=== PATIENT | male | born 1960 | race Hispanic/Latino ===

== ENCOUNTER → 2018-07-20 | Day surgery (SDC) | payer OTHER ==
[~2018-07-20] MED LIST: CEFAZOLIN 1GM (PREMIX IV) 1 GM/50 ML BAG ONE; LIDOCAINE 1% MPF 30 ML VIAL ONE; LIDOCAINE 2% MPF 5 ML VIAL ONE; MIDAZOLAM HCL 2 MG/2 ML INJ ONE; Mastisol Adhesive Liq ONE; NA CHLORIDE 0.9% 1,000 ML ONE; PROPOFOL 200 MG/20 ML VIAL IV ONE
[2018-07-20 11:24] LABS: Absolute Lymphocytes (CBC) 1.2 K/uL (0.7-4.9); Absolute Monocytes 0.3 K/uL (0.1-1.3); Absolute Neutrophil 3.4 K/uL (1.8-8.0); Basophils % 1.2 % (0-1.3); Eosinophils % 3.7 % (0-4.4); Hematocrit 34.4 % (39.6-49.0); Lymphocytes % 22.6 % (15.3-44.8); Monocytes % 6.1 % (3.3-12.3); Potassium 3.8 mmol/L (3.5-5.1); RBC Red Blood Cell Count 3.94 M/uL (4.33-5.43)
[2018-07-20 15:32] VITALS: BP 125/90; TEMP 97.6; O2SAT 98
--- NOTE | 2018-07-20 23:36 | OP ---
Date of Procedure: 07/20/2018 Surgeon: Les Holden MD Preoperative Diagnosis: End-stage renal disease status post a right chest Tesio catheter. Postoperative Diagnosis: End-stage renal disease status post a right chest Tesio catheter. Procedure: Removal of right chest Tesio catheter. Estimated Blood Loss: Minimal. Specimen: Tesio catheter. Findings: Normal anatomy. Anesthesia: MAC. Complications: None. Dispostion: The patient tolerated the procedure in stable condition, taken to Recovery in good gener al condition. Procedure In Detail: The patient brought to the OR and placed in supine position. MAC anesthesia wa s begun. The patient was prepped and draped in usual sterile fashion. Lidocaine 1% was infiltrated locally. A 15 blade was used to make a 2 x 1 cm incision around the exit site of the catheter. Subc utaneous tissues were divided, cuff identified and freed from surrounding tissue with sharp and blunt dissection and then the catheter removed in 1 piece and sent to Pathology for identification. Wound irrigated. Bleeding controlled with cautery. The flaps were created and 2-0 chromic and 3-0 chromi c used to approximate subcutaneous tissue and close the skin. Sterile dressing was applied. The pat ient was awakened and taken to Recovery in good general condition. Discharge Note: The patient will go to day surgery, then home when stable. Disposition: Home. Condition: Stable. Discharge Instructions: Resume home medications and diet. Activity as tolerated. No heavy lifting. Remove outer dressing in 2 days. Shower. Keep wound clean and dry. Keep Steri-Strips on at all t imes. Follow up in my office in 2 weeks. Call for appointment. Tylenol No.3 one tablet p.o. q.4 p. r.n. pain. /MODL Voice ID: [id number] Report ID: [id number]
--- OUTSIDE RECORDS SUMMARY | 2018-07-21 17:06 | XMS REPORT | Clinical Summary ---
:1960 Author Organization [facility] Address [address] [place] [address] Care Team Providers Name Role Phone Ritchie Torrez MD Primary Care Provider Allergies No Known Allergies Medications Medication Sig Dispensed Refills Start Date End Date Status furosemide (LASIX) Take 40 mg by 0 12/24/2015 Active 40 mg tablet mouth as needed. insulin ASPART Inject 10-12 0 Active (NovoLOG) 100 Units under the unit/mL injection skin 3 (three) times a day before meals. Sliding scale acetaminophen-codei Take 1-2 tablets 25 tablet 0 06/13/2018 06/19/2018 ne (TYLENOL WITH by mouth every 6 CODEINE #3) 300-30 (six) hours as mg per tablet needed for moderate pain for up to 6 days. docusate sodium Take 1 capsule 14 capsule 0 06/13/2018 06/20/2018 (COLACE) 100 MG (100 mg total) by capsule mouth 2 (two) times a day for 7 days. Active Problems Problem Noted Date ESRD (end stage renal disease) 05/10/2018 Overview: Added automatically from request for surgery [id number] Encounters Date Type Specialty Care Team Description 06/29/2018 Office Visit General Surgery [place], Surgery follow-up Guille Chambers MD examination (Primary Dx) 06/14/2018 Refill General Surgery Guille Fishman MD 06/13/2018 Surgery General Surgery Sra[facility], Laparoscopic Guille Chambers MD peritoneal dialysis catheter placement. 06/13/2018 Anesthesia Event General Surgery Lizeth Garrido FNP 06/13/2018 Hospital Encounter General Surgery Guille Fishman MD 06/06/2018 Pre-Admit Testing Pre-Admission S[facility], Preop testing Appointment Testing Guille Chambers MD (Primary Dx) 05/10/2018 Transcribe Orders General Surgery Sravanthi, ESRD (end stage Guille Chambers MD renal disease) (HCC) (Primary Dx) 05/09/2018 Office Visit General Surgery Sravanthi, End-stage renal Guille Chambers MD disease (HCC) (Primary Dx) after 07/19/2017 Family History Medical History Relation Name Comments Liver cancer Father Diabetes Mother Relation Name Status Comments Father Mother Alive Social History Tobacco Use Types Packs/Day Years Used Date Never Smoker Smokeless Tobacco: Never Used Alcohol Use Drinks/Week oz/Week Comments No Sex Assigned at Date Recorded Not on file Job Start Date Occupation Industry Not on file Not on file Not on file Travel History Travel Start Travel End No recent travel history available. Last Filed Vital Signs Vital Sign Reading Time Taken Blood Pressure 120/75 06/29/2018 2:36 PM [employer]IC [employer]ER [employer]PAIRER Pulse 84 06/29/2018 2:36 PM [employer] REPAIRER Temperature 36.4 C (97.5 F) 06/13/2018 9:34 AM ELECTRIC METER REPAIRER Respiratory Rate 15 06/13/2018 9:49 AM ELECTRIC METER REPAIRER Oxygen Saturation 100% 06/13/2018 9:49 AM ELECTRIC METER REPAIRER Inhaled Oxygen Concentration - - Weight 111 kg (244 lb) 06/29/2018 2:36 PM [employer]RIC [employer]ER REPAIRER Height 182.9 cm (6') 06/29/2018 2:36 PM ELECTRIC METER REPAIRER Body Mass Index 33.09 06/29/2018 2:36 PM ELECTRIC METER REPAIRER Plan of Treatment Health Maintenance Due Date Last Done Comments COLON CANCER SCREENING 2011 SHINGLES VACCINES (1 of 2) 2011 INFLUENZA VACCINE 03/01/2018 Procedures Procedure Name Priority Date/Time Associated Comments Diagnosis POC GLUCOSE Routine 06/13/2018 8:43 Results for this AM ELECTRIC METER REPAIRER procedure are in the results section. UT AN ELECTIVE Routine 06/13/2018 8:01 ENDOTRACHEAL AIRWAY AM E[employer]RIC METER REPAIRER Procedure Note - Gagan Rodriguez MD - 06/13/2018 8:01 AM ELECTRIC METER REPAIRER ANESTHESIA INTUBATION Performed by: Gagan Rodriguez MD Authorized by: Gagan Rodriguez MD Location: OR Urgency: Elective Difficult Airway: No Anesthesiologist: Gagan Rodriguez MD Performed by: anesthesiologist Preoxygenated with 100% O2: Yes Mask Ventilation: Easy mask Final Airway Type: Endotracheal airway Final Endotracheal Airway: ETT Cuffed: Yes Technique Used: Direct laryngoscopy Insertion Site: Oral Blade Type: Kaba Laryngoscope Blade/Videolaryngoscope Blade Size: 2 ETT Size (mm): 8.0 Cuff at minimum occlusion pressure: Yes Measured from: Lips ETT to Lips (cm): 24 Placement Verified by: CO2 detection, direct visualization and equal breath sounds Laryngoscopic view: Grade I - full view of glottis Rapid Sequence Induction (RSI): No Number of Attempts at Approach: 1 Medications Administered Cisatracurium (NIMBEX) BOLUS, 12 mg POC PANEL 4 Routine 06/13/2018 6:44 AM Results for this [employer] REPAIRER procedure are in the results section. ESTIMATED GFR STAT 06/13/2018 6:41 AM Results for this [employer]LECTRIC METER REPAIRER procedure are in the results section. BASIC METABOLIC PANEL STAT 06/13/2018 6:41 AM Results for this [employer]ER REPAIRER procedure are in the results section. ECG PRE/POST OP Routine 06/06/2018 4:22 PM Preop testing Results for this [employer] REPAIRER procedure are in the results section. HC COMPLETE BLD COUNT Routine 06/06/2018 2:58 PM Preop testing Results for this W/AUTO DIFF E[employer]RIC METER REPAIRER procedure are in the results section. after 07/19/2017 Results POC glucose (06/13/2018 8:43 AM ELECTRIC METER REPAIRER) POC glucose 168 (H) 65 - 99 mg/dL [facility] Comment: HOSPITAL RN Notified Meter ID: [id number] Chart Reader: Carol Ann Faria Performing Organization Address City/State/Zipcode Phone Number [facility] DEPARTMENT OF PATHOLOGY [address] [place] [address] AND GENOMIC MEDICINE [facility] [address] [place] [address] HOSPITAL POC panel 4 (06/13/2018 6:44 AM ELECTRIC METER REPAIRER) POC sodium 138 135 - 148 mmol/L [facility] POC potassium 3.5 3.5 - 5.0 mmol/L [facility] POC hematocrit 40 (L) 41 - 51 % [facility] POC glucose 191 (H) 65 - 99 mg/dL [facility] POC hemoglobin 13.6 (L) 14.0 - 18.0 g/dL [facility] Comment: HOSPITAL Meter ID: [id number] Chart Reader: Leif Vasquez Specimen Blood Performing Organization Address City/State/Zipcode Phone Number [facility] DEPARTMENT OF PATHOLOGY [address] [place] [address] Estimated GFR (06/13/2018 6:41 AM ELECTRIC METER REPAIRER) Estimated GFR 14 (A) mL/min/1.73 m2 [facility] Comment: [facility] CatergoryUnitsInterpretation G1 >=90 Normal or high G2 60-89Mildly decreased [id number] to moderately decreased [id number] to severely decreased G4 15-29Severely decreased G5 <15Kidney failure The eGFR was calculated using the Chronic Kidney Disease Epidemiology Collaboration (CKD-EPI) equation. Interpretation is based on recommendations of the National Kidney Foundation-Kidney Disease Outcomes Quality Initiative (NKF-KDOQI) published in 2014. Specimen Plasma specimen Performing Organization Address City/[facility]/Zipcode Phone Number [facility] DEPARTMENT OF PATHOLOGY [address] [place] [address] Basic metabolic panel (06/13/2018 6:41 AM ELECTRIC METER REPAIRER) Sodium 138 135 - 148 mEq/L [facility] Potassium 3.6 3.5 - 5.0 mEq/L [facility] Chloride 98 98 - 112 mEq/L [facility] CO2 23 (L) 24 - 31 mEq/L [facility] Anion gap 17@ANIO (H) 7 - 15 mEq/L [facility] BUN 43 (H) 6 - 20 mg/dL [facility] Creatinine 4.33 (H) 0.70 - 1.20 mg/dL [facility] Glucose 193 (H) 65 - 99 mg/dL [facility] Calcium 9.7 8.3 - 10.2 mg/dL [facility] Specimen Plasma specimen Performing Organization Address City/[facility]/Zipcode Phone Number [facility] DEPARTMENT OF PATHOLOGY [address] [place] [address] AND GENOMIC MEDICINE [facility] [address] [place] [address] HOSPITAL ECG Pre/Post Op (06/06/2018 4:22 PM ELECTRIC METER REPAIRER) Ventricular rate 67 [facility]USE Atrial rate 67 [facility] UT interval 156 [facility] QRSD interval 76 [facility] QT interval 402 [facility] QTC interval 424 [facility] P axis 1 16 [facility] MUSE QRS axis 1 -9 [facility] MUSE T wave axis 22 [facility] MUSE EKG impression Normal sinus rhythm-Low voltage [facility] MUSE QRS-Borderline ECG-No previous ECGs available- Performing Organization Address [facility] Phone Number [facility] [employer] [address] [place] [address] CBC with platelet and differential (06/06/2018 2:58 PM ELECTRIC METER REPAIRER) WBC 5.5 4.5 - 11.0 k/uL [facility] DEPARTMENT OF PATHOLOGY AND GENOMIC MEDICINE RBC 3.93 (L) 4.40 - 6.00 m/uL [facility] DEPARTMENT OF PATHOLOGY AND GENOMIC MEDICINE HGB 11.5 (L) 14.0 - 18.0 g/dL [facility] DEPARTMENT OF PATHOLOGY AND GENOMIC MEDICINE HCT 34.1 (L) 41.0 - 51.0 % [facility] DEPARTMENT OF PATHOLOGY AND GENOMIC MEDICINE MCV 86.8 82.0 - 100.0 fL [facility] DEPARTMENT OF PATHOLOGY AND GENOMIC MEDICINE MCH 29.3 27.0 - 34.0 pg [facility] DEPARTMENT OF PATHOLOGY AND GENOMIC MEDICINE MCHC 33.7 31.0 - 37.0 g/dL [facility] DEPARTMENT OF PATHOLOGY AND GENOMIC MEDICINE RDW - SD 40.3 37.0 - 55.0 fL [facility] DEPARTMENT OF PATHOLOGY AND GENOMIC MEDICINE MPV 11.4 (H) 6.9 - 11.0 fL [facility] DEPARTMENT OF PATHOLOGY AND GENOMIC MEDICINE Platelet count 152 150 - 400 K/uL [facility] DEPARTMENT OF PATHOLOGY AND GENOMIC MEDICINE Nucleated RBC 0.00 /100 WBC [facility] DEPARTMENT OF PATHOLOGY AND GENOMIC MEDICINE Neutrophils 60.0 39.0 - 69.0 % [facility] DEPARTMENT OF PATHOLOGY AND GENOMIC MEDICINE Lymphocytes 28.8 25.0 - 45.0 % [facility] DEPARTMENT OF PATHOLOGY AND GENOMIC MEDICINE Monocytes 7.4 0.0 - 10.0 % [facility] DEPARTMENT OF PATHOLOGY AND GENOMIC MEDICINE Eosinophils 2.5 0.0 - 5.0 % [facility] DEPARTMENT OF PATHOLOGY AND GENOMIC MEDICINE Basophils 0.9 0.0 - 1.0 % [facility] DEPARTMENT OF PATHOLOGY AND GENOMIC MEDICINE Immature granulocytes 0.4 0.0 - 1.0 % [facility] DEPARTMENT OF PATHOLOGY AND GENOMIC MEDICINE Specimen Blood Performing Organization Address City/State/Zipcode Phone Number [facility] DEPARTMENT OF PATHOLOGY [address] [place] [address] AND GENOMIC MEDICINE after 07/19/2017 Insurance Payer Benefit Plan / Group Subscriber ID Type Phone Address MEDICARE MEDICARE PART A AND B xxxxxxxxxxx Medicare [place], [place] COMMERCIAL MISC MISC COMMERCIAL xxxxxxxxxx Commercial ([place]) [place] [address] Advance Directives Patient has advance care planning documents on file. For more information, please contact:Idris [address] [place] [address]
--- OUTSIDE RECORDS SUMMARY | 2018-07-21 17:06 | XMS REPORT | Clinical Summary ---
:1960 Author Organization [facility] Address [address] [place] [address] Care Team Providers Name Role Phone Unavailable Primary Care Provider Unavailable Allergies Not on File Medications Not on file Active Problems Not on file Encounters Date Type Specialty Care Team Description 02/13/2018 Abstract Transplant Isaiah Jacqueline 12/22/2017 Telephone Transplant Isaiah Jacqueline Kidney Transplant Pre- evaluation 12/22/2017 Abstract Transplant Colon Jacqueline 12/07/2017 Telephone Transplant Isaiah Jacqueline Kidney Transplant Pre- evaluation 12/05/2017 Telephone Transplant Colon Jacqueline Kidney Transplant Pre- evaluation 11/18/2017 Telephone Transplant Isaiah Jacqueline Kidney Transplant Pre- evaluation 11/15/2017 Abstract Transplant Isaiah Jacqueline 11/10/2017 Abstract Transplant Jacqueline Colon after 07/19/2017 Social History Tobacco Use Types Packs/Day Years Used Date Never Smoker Sex Assigned at Date Recorded Not on file Job Start Date Occupation Industry Not on file Not on file Not on file Travel History Travel Start Travel End No recent travel history available. Last Filed Vital Signs Vital Sign Reading Time Taken Blood Pressure - - Pulse - - Temperature - - Respiratory Rate - - Oxygen Saturation - - Inhaled Oxygen Concentration - - Weight 105.2 kg (232 lb) 11/10/2017 1:50 PM CDT Height 182.9 cm (6') 11/10/2017 1:50 PM CDT Body Mass Index 31.46 11/10/2017 1:50 PM CDT Plan of Treatment Not on file Results Not on fileafter 07/19/2017 Insurance Payer Benefit Plan / Group Subscriber ID Type Phone Address MEDICARE MEDICARE A B xxxxxxxxxx Medicare (Home) [place] [address]
== END ==
LOC: OR 10:43
PROVIDERS: ATTEND Surgery
PROC: 02PY33Z Removal of Infusion Device from Great Vessel, Percutaneous Approach (ICD-10-PCS; principal; 2018-07-20 12:00)
DX: Z49.01 Encounter for fitting and adjustment of extracorporeal dialysis catheter (principal); I12.0 Hypertensive chronic kidney disease with stage 5 chronic kidney disease or end stage renal disease; N18.6 End stage renal disease; Z79.4 Long term (current) use of insulin; Z79.899 Other long term (current) drug therapy
CPT/HCPCS: 36415; 36556; 80048; 82962; 85025; 88300; J0690; J2250; J2704; J7030

== ENCOUNTER 2019-11-11 11:29 | Emergency (ER) | payer OTHER ==
--- OUTSIDE RECORDS SUMMARY | 2019-11-11 11:32 | XMS REPORT ---
:1960 Author Organization [facility] t Address [facility] [place] [address] Care Team Providers Name Role Phone Unavailable Unavailable Unavailable Problems This patient has no known problems. Allergies, Adverse Reactions, Alerts This patient has no known allergies or adverse reactions. Medications This patient has no known medications. Encounters Start End Encounter Admission Attending Care Care Encounter Date/Time Date/Time Type Type Clinicians Facility Department ID 2019-10-01 Inpatient [facility] [id number] 13:35:35 2019-10-08 2019-10-08 Outpatient [facility] [id number] 11:36:00 11:36:00 2019-09-06 2019-09-06 Outpatient [facility] [id number] 15:00:00 15:00:00 2019-07-04 2019-07-04 Outpatient [facility] [id number] 08:20:00 08:20:00 2019-06-04 2019-06-04 Outpatient [facility] [id number] 15:00:00 15:00:00 2019-04-17 2019-04-17 Outpatient [facility] CAR [id number] 11:04:00 11:04:00 2019-04-10 2019-04-10 Outpatient [facility] CAR [id number] 13:22:00 13:22:00 2019-04-02 2019-04-02 Outpatient [facility] [id number] 15:00:00 15:00:00 2019-03-09 2019-03-09 Outpatient [facility] [id number] 15:00:00 15:00:00 2019-02-22 2019-02-22 Outpatient [facility] [id number] 11:00:00 11:00:00 2019-02-05 2019-02-05 Outpatient [facility] [id number] 15:00:00 15:00:00 2019-01-08 2019-01-08 Outpatient [facility] [id number] 15:00:00 15:00:00 2018-11-13 2018-11-13 Outpatient [facility] [id number] 12:05:00 12:05:00 2018-10-23 2018-10-23 Outpatient [facility] [id number] 15:00:00 15:00:00
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
--- OUTSIDE RECORDS SUMMARY | 2019-11-11 11:34 | XMS REPORT | Summary of Care ---
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 (Primary Dx); Clinic- [place] MD Jamal Diabetic macular edema, left eye; Multispecialty [address] Hypertensive retinopathy of both eyes; [facility] Posterior vitreous detachment of right e ye; [place], [place] Cranial nerve III palsy, rig ht; [place] [address] Nuclear sclerosis, right; [id number] Pseudophakia, left eye; [phone] Refractiv e error Allergies No Known Allergiesdocumented as of this encounter (statuses as of 09/07/2019) Medications Medication Sig Dispensed Refills Start Date End Date Status Insulin [place], Use as directed 100 Each 0 02/22/2014 [...] mg tablet mouth every morning and evening. 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 Tolu Navarro MD 09/07/2019 2:32 PM MANAGEMENT PROFESSIONAL documented in this encounter Plan of Treatment Date Type Specialty Care Team Description 12/06/2019 Office Visit Ophthalmology Tolu Ayers MD [address] [place] [address] [phone] Health Maintenance Due Date Last Done Comments [...] of this encounter Implants Implanted Type Area Boxer Operator Device Shelf Model / Identifier Expiration Date Ser ial / Lot Lens, Qamar #[id number] 21.0d - [id number] LENS Left: Eye Qamar 06/30/2022 [id number] 21.0D / Implanted: Qty: 1 on 11/10/2017 by Radha Kohler MD at [facility] [id number] / NA documented as of this [...] BOX Medicare A & B ent [id number] DIONNA JARRETT [phone] COMMERCIAL COMMERCIAL [id number] 2017-Pres HMO /PPO/POS NON-CONTRACT NON-CONTRACT ent GENERIC GENERIC documented as of this encounter
--- NOTE | 2019-11-11 11:50 | ER ---
Nurse's Notes [facility] Name: Julian Morillo Age: 59 yrs Sex: Male : 1960 Arrival Date: 11/11/2019 Time: 11:34 Bed 6 Private MD: Berta Torrez C Diagnosis: Zoster [herpes zoster] Presentation: 11/10 11:41 Chief complaint: Patient states: shingles to the right side of body. Coronavirus sv screen: Proceed with normal triage. Patient denies a cough. Patient denies shortness of breath or difficulty breathing. Patient denies measured and/or subjective temperature greater than 100.4F prior to today's visit. Patient denies travel on a cruise ship or to a country the [facility] currently lists as an affected area. Patient denies contact with known and/or suspected case of COVID-19. Ebola Screen: No symptoms or risks identified at this time. Initial Sepsis Screen: Does the patient meet any 2 criteria? HR > 90 bpm. No. Patient's initial sepsis screen is negative. Does the patient have a suspected source of infection? No. Patient's initial sepsis screen is negative. Risk Assessment: Do you want to hurt yourself or someone else? Patient reports no desire to harm self or others. Onset of symptoms was November 11, 2019. 11:41 Method Of Arrival: Wheelchair sv 11:41 Acuity: IZABEL 5 sv Triage Assessment: 11:45 General: Appears in no apparent distress. comfortable, well groomed, well developed, sv Behavior is calm, cooperative, appropriate for age. Neuro: Level of Consciousness is awake, alert, obeys commands, Oriented to person, place, time, situation, Gait is steady. Respiratory: Respiratory effort is even, unlabored, Respiratory pattern is regular, symmetrical. Derm: Skin is pink, warm \T\ dry. Historical: - Allergies: 11:44 No Known Allergies; sv - PMHx: 11:44 Diabetes - IDDM; Hypertension; Peritoneal dialysis; sv - PSHx: 11:44 skin graft Left leg; sv - Immunization history:: Adult Immunizations up to date. - Social history:: Smoking status: Patient denies any tobacco usage or history of. Patient/guardian denies using alcohol. Screenin:44 Abuse screen: Denies threats or abuse. Denies injuries from another. Nutritional sv screening: No deficits noted. Tuberculosis screening: No symptoms or risk factors identified. Fall Risk None identified. Assessment: 11:59 Reassessment: Patient appears in no apparent distress at this time. No changes from sv previously documented assessment. Patient and/or family updated on plan of care and expected duration. Pain level reassessed. Patient is alert, oriented x 3, equal unlabored respirations, skin warm/dry/pink. Vital Signs: 11:41 BP 105 / 50; Pulse 102; Resp 18; Temp 97.6(TE); Pulse Ox 100% ; Weight 119.29 kg; sv Height 6 ft. 0 in. (182.88 cm); 11:41 Body Mass Index 35.67 (119.29 kg, 182.88 cm) sv ED Course: 11:34 Patient arrived in ED. mr 11:34 Berta Torrez MD is Private Physician. mr 11:37 Maude Mathias RN is Primary Nurse. sv 11:42 [facility] Alonzo [facility]-C [facility] kb 11:42 Edmar Bartlett MD is Attending Physician. kb 11:43 Triage completed. sv 11:44 Arm band placed on. sv 11:44 Patient has correct armband on for positive identification. Bed in low position. Call sv light in reach. Pulse ox on. NIBP on. Door closed. Head of bed elevated. 11:45 Nurse Practitioner and/or Physician Psychology Technician to see patient. sv 11:58 No provider procedures requiring assistance completed. Patient did not have IV access sv during this emergency room visit. Administered Medications: 11:57 Drug: Valtrex 1000 mg Route: PO; sv 11:58 Follow up: Response: Medication administered at discharge. sv 11:58 Drug: [place] (7.5 mg-325 mg) 1 tabs {Note: rass1.} Route: PO; sv 11:58 Follow up: Response: Medication administered at discharge. sv Outcome: 11:50 Discharge ordered by . kb 11:58 Discharged to home via wheelchair. sv 11:58 Condition: stable 11:58 Discharge instructions given to patient, Instructed on discharge instructions, follow up and referral plans. medication usage, Demonstrated understanding of instructions, follow-up care, medications, Prescriptions given X 2. 11:59 Patient left the ED. sv Signatures: Leanna Alonzo FNP-C FNP-Ckb Maude Mathias, RN RN sv Yuan, Dianelys mr
--- NOTE | 2019-11-11 11:51 | EDPHYS ---
Physician Documentation [facility] Name: Julian Morillo Age: 59 yrs Sex: Male : 1960 Arrival Date: 11/11/2019 Time: 11:34 Bed 6 Private MD: Berta Torrez C ED Physician Edmar Bartlett HPI: 11/10 11:49 This 59 yrs old Male presents to ER via Wheelchair with complaints of Shingles.kb 11:49 The patient's rash thought to be caused by an unknown cause. The rash is located on the kb right breast. The rash can be described as vesicular. Onset: The symptoms/episode began/occurred 3 day(s) ago. Associated signs and symptoms: Pertinent positives: burning sensation, Pain. Severity of symptoms: At their worst the symptoms were mild in the emergency department the symptoms are unchanged. The patient has not experienced similar symptoms in the past. The patient has not recently seen a physician. Pt reports burning sensation started 3 days ago, then blistered rash developed yesterday. Painful to touch. Historical: - Allergies: 11:44 No Known Allergies; sv - PMHx: 11:44 Diabetes - IDDM; Hypertension; Peritoneal dialysis; sv - PSHx: 11:44 skin graft Left leg; sv - Immunization history:: Adult Immunizations up to date. - Social history:: Smoking status: Patient denies any tobacco usage or history of. Patient/guardian denies using alcohol. ROS: 11:48 Constitutional: Negative for fever, chills, and weight loss, Neck: Negative for injury, kb pain, and swelling, Cardiovascular: Negative for chest pain, palpitations, and edema, Respiratory: Negative for shortness of breath, cough, wheezing, and pleuritic chest pain, Abdomen/GI: Negative for abdominal pain, nausea, vomiting, diarrhea, and constipation, Back: Negative for injury and pain, MS/Extremity: Negative for injury and deformity, Neuro: Negative for headache, weakness, numbness, tingling, and seizure. 11:48 Skin: Positive for rash, of the right breast. Exam: 11:48 Constitutional: This is a well developed, well nourished patient who is awake, alert, kb and in no acute distress. Head/Face: Normocephalic, atraumatic. Neck: Trachea midline, no thyromegaly or masses palpated, and no cervical lymphadenopathy. Supple, full range of motion without nuchal rigidity, or vertebral point tenderness. No Meningismus. Chest/axilla: Normal chest wall appearance and motion. Nontender with no deformity. No lesions are appreciated. Cardiovascular: Regular rate and rhythm with a normal S1 and S2. No gallops, murmurs, or rubs. Normal PMI, no JVD. No pulse deficits. Respiratory: Lungs have equal breath sounds bilaterally, clear to auscultation and percussion. No rales, rhonchi or wheezes noted. No increased work of breathing, no retractions or nasal flaring. Abdomen/GI: Soft, non-tender, with normal bowel sounds. No distension or tympany. No guarding or rebound. No evidence of tenderness throughout. MS/ Extremity: Pulses equal, no cyanosis. Neurovascular intact. Full, normal range of motion. Neuro: Awake and alert, GCS 15, oriented to person, place, time, and situation. Cranial nerves II-XII grossly intact. Motor strength 5/5 in all extremities. Sensory grossly intact. Cerebellar exam normal. Normal gait. 11:48 Skin: consistent with zoster. Vital Signs: 11:41 BP 105 / 50; Pulse 102; Resp 18; Temp 97.6(TE); Pulse Ox 100% ; Weight 119.29 kg; sv Height 6 ft. 0 in. (182.88 cm); 11:41 Body Mass Index 35.67 (119.29 kg, 182.88 cm) sv MDM: 11:42 Patient medically screened. kb 11:47 Data reviewed: vital signs, nurses notes. Data interpreted: Pulse oximetry: on room air kb is 100 %. Interpretation: normal. Counseling: I had a detailed discussion with the patient and/or guardian regarding: the historical points, exam findings, and any diagnostic results supporting the discharge/admit diagnosis, the need for outpatient follow up, a family practitioner, to return to the emergency department if symptoms worsen or persist or if there are any questions or concerns that arise at home. Administered Medications: 11:57 Drug: Valtrex 1000 mg Route: PO; sv 11:58 Follow up: Response: Medication administered at discharge. sv 11:58 Drug: [place] (7.5 mg-325 mg) 1 tabs {Note: rass1.} Route: PO; sv 11:58 Follow up: Response: Medication administered at discharge. sv Disposition: 17:24 Co-signature as Attending Physician, Edmar Bartlett MD. ma2 Disposition: 11/11/19 11:50 Discharged to Home. Impression: Zoster [herpes zoster]. - Condition is Stable. - Discharge Instructions: Shingles. - Prescriptions for Tylenol- Codeine #3 300-30 mg Oral Tablet - take 1 tablet by ORAL route every 6 hours As needed; 15 tablet. Valtrex 1 g Oral Tablet - take 1 tablet by ORAL route every 8 hours for 7 days; 21 tablet. - Medication Reconciliation Form, Thank You Letter, Antibiotic Education, Prescription Opioid Use form. - Follow up: Private Physician; When: 2 - 3 days; Reason: Recheck today's complaints, Continuance of care, Re-evaluation by your physician. Follow up: Emergency Department; When: As needed; Reason: Worsening of condition. Signatures: Leanna Alonzo FNP-C FNP-Ckb Verde, Stephanie, RN RN sv Alzahri, Mohammad, MD MD va2 Corrections: (The following items were deleted from the chart) 11:59 11:50 11/11/2019 11:50 Discharged to Home. Impression: Zoster [herpes zoster]. sv Condition is Stable. Discharge Instructions: Shingles. Prescriptions for Tylenol-Codeine #3 300-30 mg Oral Tablet - take 2 tablet by ORAL route every 6 hours As needed; 30 tablet, Valtrex 1 g Oral Tablet - take 1 tablet by ORAL route every 8 hours for 7 days; 21 tablet. and Forms are Medication Reconciliation Form, Thank You Letter, Antibiotic Education, Prescription Opioid Use. Follow up: Private Physician; When: 2 - 3 days; Reason: Recheck today's complaints, Continuance of care, Re-evaluation by your physician. Follow up: Emergency Department; When: As needed; Reason: Worsening of condition. kb
[2019-11-11] MEDS ORDERED: HYDROCODONE/APAP 7.5/325 MG TAB ONE (11:54)
[2019-11-11] MEDS ORDERED: VALACYCLOVIR 500 MG TAB ONE (11:55)
[2019-11-11 12:04] VITALS: BP 105/50; TEMP 97.6; O2SAT 100
== END 2019-11-11 11:59 | disposition home or self-care (01) ==
LOC: ER 11:29
DX: B02.9 Zoster without complications (principal)
CPT/HCPCS: 99283

== ENCOUNTER 2021-02-07 16:25 | Emergency (ER) | payer OTHER ==
--- OUTSIDE RECORDS SUMMARY | 2021-02-07 16:30 | XMS REPORT | Continuity of Care Document ---
:1960 Author Organization [facility] t Address [address] [place] [address] Care Team Providers Name Role Phone Sujit Torrez MD Primary Care Physician Carey Kong Attending Clinician [place]on LUQUE Attending Clinician Doctor Unassigned, Name Attending Clinician Unavailable Swati Escalante Attending Clinician Philippe Attending Clinician Chong Dong Attending Clinician Faisal Yeung Attending Clinician Mauricio Attending Clinician Philippe Admitting Clinician Carey Kong Admitting Clinician Faisal Yeung Admitting Clinician Problems Condition Condition Condition Status Onset Resolution Last Treating Co mments Source Name Details Category Date Date Treatment Clinician Date LABS ONLY Diagnosis Active 2021-02-04 Memoria 02-04 09:01:00 l LABS 00:00: [place] ONLY 00 Active 02/04/2021 [facility] HLA LABS Diagnosis Active 2021-01-02 M emoria ONLY 6- 13:38:00 l HLA LABS 00:00: Luis n ONLY 00 Active 01/02/2021 [facility] LISTED Diagnosis Active 2020-11-24 Mem oria UPDATE 4-13 13:48:00 l LISTED 11:00: Marlon UPDATE 00 Active 11/11/2020 [facility] LABS Diagnosis Active 2020-10-13 Mem oria 3-11 12:15:00 l LABS 11:00: [place] 00 Active 10/09/2020 [facility] HLA MAIL Diagnosis Active 2019-082020-11-17 M emoria INS - 15:29:00 l HLA MAIL 11:00: Luis n INS 00 Active 07/20/2020 [facility] ESLD Diagnosis Active 2020-05-16 Mem oria 04-21 10:40:00 l ESLD 00:00: Marlon 00 Active 04/21/2020 [facility] LABH Diagnosis Active 2020-02-05 Mem oria 01-29 12:49:00 l LABH 11:00: [place] 00 Active 01/30/2020 [facility] Z01.818 - Diagnosis Active 2019-10-13 Memoria ENCOUNTER 10-04 13:15:00 l FOR OTHER Z01.818 00:01: Herm anabella PREPROCEDU - 00 ENCOUNTER FOR OTHER PREPROCEDU Active 10/05/2019 [facility] RENAL/DO Diagnosis Active 2021-02-06 M emoria NOT USE 08-20 09:39:00 l FOR THIS RENAL/DO 06:00: Herm anabella FOR NOT USE 00 CHARGES F/ FOR THIS FOR CHARGES F/ Active 08/20/2019 [facility] Z01.818 Diagnosis Active 2019-05-10 Me moria 04-13 09:17:00 l Z01.818 00:00: [place] 00 Active 04/13/2019 [facility] ESRD (end ESRD (end Disease Active 2017-08 Overview: [place] stage stage 0-10 Oumar Robles renal renal 00:00: g of this st disease) disease) 00 note might be different from the original. Added automatic ally from request for surgery [id number] ENCOUNTER Diagnosis Active 2018-04-12 Memoria 8-14 15:15:00 l 00:00: [place] ENCOUNTER 00 Active 03/14/2018 [facility] ESRD Diagnosis Active 2018-02-28 Mem oria 7-16 11:06:00 l ESRD 00:00: [place] 00 Active 02/13/2018 [facility] ESRED/ PRE Diagnosis Active 2018-03-17 Memoria TRANSPLANT 01-23 15:39:00 l WORK UP ESRED/ 00:00: Marlon PRE 00 TRANSPLANT WORK UP Active 01/23/2018 [facility] CARDIAC Diagnosis Active 2018-03-19 Me moria CLEARANCE 01-04 15:08:00 l CARDIAC 00:00: Marlon CLEARANCE 00 Active 01/04/2018 [facility] COLON Diagnosis Active 2018-03-06 Mem oria CANCER 01-04 12:44:00 l SCREENING COLON 00:00: Luis colon CANCER 00 SCREENING Active 01/04/2018 [facility] RENAL/DO Diagnosis Active 2018-08-29 M emoria NOT USE 01-03 09:01:00 l FOR RENAL/DO 06:00: Luis n CHARGES NOT USE 00 F/C NOTES FOR O CHARGES F/C NOTES O Active 01/03/2018 [facility] NEW Diagnosis Active 2019-07-04 Mem oria EVALUATION 2- 08:30:00 l NEW 00:00: Marlon EVALUATION 00 Active 09/19/2017 [facility] Enlarged Problem 2018-11-27 Mem oria prostate 11:39:14 l without Enlarged Veronique nn lower prostate urinary without tract lower symptoms urinary tract symptoms 11/27/2018 [facility] Hypertensi Problem 2018-11-27 M emoria ve chronic 11:39:14 l kidney [place] disease Hypertensi with stage ve chronic 5 chronic kidney kidney disease disease or with stage end stage 5 chronic renal kidney disease disease or end stage renal disease 11/27/2018 [facility] Type 2 Problem 2018-11-27 Memor ia diabetes 11:39:14 l mellitus Type 2 Luis n with diabetes diabetic mellitus chronic with kidney diabetic disease chronic kidney disease 11/27/2018 [facility] Secondary Problem 2018-11-27 Me moria hyperparat 11:39:14 l hyroidism [place] of renal Secondary origin hyperparat hyroidism of renal origin 11/27/2018 [facility] Awaiting Problem 2018-11-27 Mem oria organ 11:39:14 l transplant Awaiting He rmann status organ transplant status 11/27/2018 [facility] Obesity, Problem 2018-11-27 Mem oria unspecifie 11:39:14 l d Obesity, Luis n unspecifie d 11/27/2018 [facility] Abnormal Problem 2018-10-02 Mem oria electrocar 12:42:07 l diogram Abnormal Veronique nn [ECG] electrocar [EKG] diogram [ECG] [EKG] 10/02/2018 [facility] Hyperlipid Problem 2018-09-05 M emoria emia, 12:26:11 l unspecifie Luis n d Hyperlipid emia, unspecifie d 09/05/2018 [facility] Personal Problem 2018-09-05 Mem oria history of 12:26:11 l colonic Personal Veronique nn polyps history of colonic polyps 09/05/2018 [facility] Benign Problem Resolve 2021-01-30 Andre erasmo prostatic d 23:27:00 l hyperplasi Benign Herm anabella a prostatic (disorder) hyperplasi a (disorder) Resolved Problem 01/30/2021 [facility] OPID [place] Hyperlipid Problem Resolve 2021-01-30 Memoria emia d 23:27:00 l (disorder) Luis n Hyperlipid emia (disorder) Resolved Problem 01/30/2021 [facility] OPID [place] Male Problem Resolve 2021-01-30 Andre erasmo hypogonadi d 23:27:00 l sm Male Marlon (disorder) hypogonadi sm (disorder) Resolved Problem 01/30/2021 [facility] OPID [place] Neuropathy Problem Resolve 2021-01-30 Memoria (disorder) d 23:27:00 l [place] Neuropathy (disorder) Resolved Problem 01/30/2021 [facility] OPID [place] Proteinuri Problem Resolve 2021-01-30 Memoria a d 23:27:00 l (finding) Marlon Proteinuri a (finding) Resolved Problem 01/30/2021 [facility] Retinal Problem Resolve 2021-01-30 Mem oria disorder d 23:27:00 l (disorder) 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 mcclure disorder (disorder) Resolved Problem 01/30/2021 [facility] Secondary Problem Resolve 2021-01-30 M emoria hyperparat d 23:27:00 l hyroidism Marlon (disorder) Secondary hyperparat hyroidism (disorder) Resolved Problem 01/30/2021 [facility] Diabetes Problem Active 2021-01-30 Mem oria mellitus 23:27:00 l (disorder) Diabetes He rmann mellitus (disorder) Active Problem 01/30/2021 [facility] Hypertensi Problem Active 2021-01-30 emoria ve 23:27:00 l disorder, [place] systemic Hypertensi arterial ve (disorder) disorder, systemic arterial (disorder) Active Problem 01/30/2021 [facility] Simple Problem Active 2021-01-30 Memor ia obesity 23:27:00 l (disorder) Simple Herm anabella obesity (disorder) Active Problem 01/30/2021 [facility] Atheroscle Problem Active 2021-01-03 emoria rosis 02:03:47 l [place] Atheroscle rosis Active Problem 01/03/2021 [facility] Diabetes Problem Active 2021-01-03 Mem oria mellitus 02:03:47 l with Diabetes Luis n peripheral mellitus vascular with disease peripheral vascular disease Active Problem 01/03/2021 [facility] Dependence Problem Active 2021-01-03 M emoria on renal 02:03:47 l dialysis [place] Dependence on renal dialysis Active Problem 01/03/2021 [facility] Onychomyco Problem Active 2021-01-03 M emoria sis 02:03:47 l [place] Onychomyco sis Active Problem 01/03/2021 [facility] End stage Problem Active 2021-01-03 Me moria renal 02:03:47 l disease End [place] stage renal disease Active Problem 01/03/2021 [facility] Paronychia Problem Active 2021-01-03 M emoria of great 02:03:47 l toe of [place] left foot Paronychia of great toe of left foot Active Problem 01/03/2021 [facility] Paronychia Problem Active 2021-01-03 M emoria of great 02:03:47 l toe of [place] right foot Paronychia of great toe of right foot Active Problem 01/03/2021 [facility] Dystrophic Diagnosis Active 2021-01-03 Memoria nail 02:03:47 l [place] Dystrophic nail Active Diagnosis 01/03/2021 [facility] Type 2 Problem Active 2021-01-03 Memor ia diabetes 02:03:47 l mellitus Type 2 Luis n without diabetes complicati mellitus on, without unspecifie complicati d whether on, fdc unspecifie insulin d whether use fdc insulin use Active Problem 01/03/2021 [facility] Venous Problem Active 2021-01-03 Memor ia insufficie 02:03:47 l ncy Venous [place] insufficie ncy Active Problem 01/03/2021 [facility] ENCOUNTER Diagnosis Active 2020-02-05 Memoria FOR 12:49:00 l PREPROCEDU Luis n RAL ENCOUNTER LABORATORY FOR E PREPROCEDU RAL LABORATORY E Active [facility] ENCOUNTER Diagnosis Active 2019-05-10 Memoria FOR OTHER 09:17:00 l PREPROCEDU Luis n RAL EXAMIN ENCOUNTER FOR OTHER PREPROCEDU RAL EXAMIN Active [facility] OTH Diagnosis Active 2019-05-10 Mem oria SYMPTOMS 09:17:00 l [facility] THE CIR AND SIGNS INVOLVING THE CIR Active [facility] ENCNTR FOR Diagnosis Active 2018-03-06 Memoria GENERAL 12:44:00 l ADULT ENCNTR [place] MEDICAL FOR EXAM W/ GENERAL ADULT MEDICAL EXAM W/ Active [facility] Third Problem Resolve 2017-0 2021-01-30 2021-01-30 Memoria cranial d 1-01 23:27:00 23:27:00 l nerve Third 00:00: Marlon weakness cranial 00 (disorder) nerve weakness (disorder) Resolved 08/01/2016 Problem 01/30/2021 [facility] History of Past Illness Condition Condition Condition Status Onset Resolution Last Treating Co mments Source Name Details Category Date Date Treatment Clinician Date Encounter Problem 2019-03-20 2019-03-20 Memoria for 2-07 11:09:52 11:09:52 l preprocedu 05:32: Luis vasquez Encounter 45 laboratory for examinatio preprocedu n ral laboratory examinatio n 09/07/2018 03/20/2019 [facility] Encounter Problem 2019-02-06 2019-02-06 Memoria for other 4-24 11:10:57 11:10:57 l administra 04:02: Luis colon tive Encounter 58 examinatio for other ns administra tive examinatio ns 11/22/2018 02/06/2019 [facility] Benign Problem 2017-082018-11-27 2018-11-27 M emoria neoplasm 0-15 11:39:14 11:39:14 l of Benign 02:43: Marlon ascending neoplasm 00 colon of ascending colon 05/15/2018 11/27/2018 [facility] Allergies, Adverse Reactions, Alerts Allergy Allergy Status Severity Reaction(s) Onset Inactive Treating Comm ents Source Name Type Date Date Clinician N.K.D.A. N.K.D.A. Active Info Not Andre erasmo Available 5-11 l 00:00: [place] 00 No Known No Known Active Memori a Medicati Medicati l on on Marlon Allergie Allergie s s Family History Family Member Diagnosis Comments Start Date Stop Date Source Natural father Liver cancer [facility] Natural mother Diabetes [facility] Social History Social Habit Start Date Stop Date Quantity Comments Source Sex Assigned At [facility] Social [facility] 2019[facility]10[facility]08 [facility] 17:03:22 Tobacco use and 2018-09-11 2018-09-11 Never used [facility] ethodist exposure 00:00:00 00:00:00 Alcohol intake 2018-09-11 2018-09-11 Current [facility] thodist 00:00:00 00:00:00 non-drinker of alcohol (finding) Smoking Status Start Date Stop Date Source Never smoker [facility] Medications Ordered Filled Start Stop Current Ordering Indication Dosage Frequency Signature Comments Components Source Medication Medication Date Date Medication? Clinician (SIG) Name Name Calcitriol Yes UllaBritt not Me moria 6-05 Larka defined l 02:03: [place] 47 Metolazone Yes UllaBritt not Me moria 6-05 Larka defined l 02:03: Marlon 47 Novolin Yes UllaBritt not Memor ia 70/30 6-05 [place] defined l 02:03: [place] 47 Losartan Yes UllaBritt not Andre erasmo Potassium 6-05 Larka defined l 02:03: [place] 47 Vitamin D2 Yes UllaBritt not Me moria 6-05 [place] defined l 02:03: Marlon 47 Furosemide Yes UllaBritt not Me moria 6-05 [place] defined l 02:03: Mar[place] 47 Diabetic Yes UllaBritt as Andre erasmo Shoes & 6-05 Larka directed l Custom 02:03: Marlon Insoles 47 Lamisil Yes UllaBritt 1 tablet M emoria 5-11 Larka l 00:00: Diabetic Yes UllaBritt as Andre erasmo Shoes & 2-05 [place] directed l Custom 00:00: Insoles 00 Diabetic Yes UllaBritt as Andre erasmo Shoes & 1-05 [place]arka directed l Custom 00:00: Insoles 00 Terbinafine Yes UllaBritt 1 tablet Memoria HCl 1-05 Larka l 00:00: Lamisil 2019-08 Yes UllaBritt 1 tablet M emoria 2-02 Larka l 00:00: Silvadene 2019-08 Yes UllaBritt 1 Mem oria 1-03 Larka applicatio l 00:00: n to [place] 00 affected area Clindamycin 2019-08 Yes UllaBritt 1 capsule Memoria 0-19 Larka l 00:00: Diabetic 2019-08 Yes UllaBritt as Andre erasmo Shoes & 0-06 Larka directed l Custom 00:00: Marlon Insoles 00 Silvadene 2019-08 Yes UllaBritt 1 Mem oria 0-05 Larka applicatio l 00:00: n to [place] 00 affected area Metolazone Yes 5 mg = 1 Mem oria 5 MG Oral 4-15 tab, PO, l Tablet 18:40: QAM Amlodipine No 10 mg = 1 Me moria 10 MG Oral 4-15 tab, PO, l Tablet 18:40: BID Marlon [Norvasc] calcitriol Yes 0.25 Memoria 0.25 mcg 4-15 microgram l oral 18:40: = 1 cap, [place] capsule 00 PO, Every Other Day, # 90 cap, 0 Refill(s) Furosemide Yes 80 mg = 1 Me moria 80 MG Oral 4-15 tab, PO, l Tablet 18:40: BID Marlon [Lasix] Ergocalcife Yes 50,000 Andre erasmo rol [id number] 4-15 IntlUnit = l UNT Oral 18:40: 1 cap, PO, Her mcclure Capsule 00 qWeek carvedilol Yes 12.5 mg = Me moria 12.5 mg 4-15 1 tab, PO, l oral tablet 18:40: BID Luis n Calcium Yes 1,000 mg = Andre erasmo Carbonate 4-15 1 tab, l 1000 MG 18:40: CHEW, Marlon Chewable 00 TID-Meals, Tablet 0 [Tums] Refill(s) losartan 50 Yes 50 mg = 1 M emoria mg oral 4-15 tab, PO, l tablet 18:36: Daily losartan No 100 mg = 1 Mem oria 100 mg oral 4-15 tab, PO, l tablet 18:11: Daily, # [place] 00 30 tab, 0 Refill(s) insulin Yes 10U [id number] Inject [place] ASPART 2-08 [id number] 10-12 Method i (NovoLOG) 15:07: 3D Units st 100 unit/mL 51 under the injection skin 3 (three) times a day before meals. Sliding scale losartan Yes Take by Tezto n potassium 2-08 mouth. Methodi (LOSARTAN 15:07: st ORAL) 51 amlodipine Yes Take by Te[place] besylate 2-08 mouth. Methodi (AMLODIPINE 15:07: st ORAL) 51 GoLYTELY Yes See Memoria oral powder 02-16 Instructio l for 14:49: ns, as Marlon reconstitut 00 directed ion in clinic, # 1 ea, 0 Refill(s), Pharmacy: [facility] Novolin N Yes 10 unit, Andre erasmo 605 SUB-Q, l 17:07: BID, 0 Marlon 00 Refill(s) Ascorbic Yes 1 tab, PO, Mem oria Acid 60 MG 6- Daily, 0 l / Biotin 20:09: Refill(s) Herm anabella 0.3 MG / 00 Folic Acid 0.8 MG / mecobalamin 0.006 MG / Niacinamide 20 MG / pantothenat e 10 MG / pyridoxine 10 MG / Riboflavin 1.7 MG / Thiamine 1.5 MG Oral Tablet [Dialyvite 800] Furosemide Yes 40 mg = 1 Me moria 40 MG Oral 12-30 tab, PO, l Tablet 20:09: BID, 0 Marlon 00 Refill(s) furosemide Yes 40mg Take 40 mg [place] (LASIX) 40 5-25 by mouth Metho di mg tablet 00:00: as needed. st 00 Vital Signs Vital Name Observation Time Observation Value Comments Source Weight 2020-12-09 16:45:00 [facility] [place] Height 2020-12-09 16:45:00 [facility] [place] Temperature Oral (F) 2020-12-09 16:45:00 97.7 F [facility] [place] Weight 2020-09-05 16:45:00 [facility] [place] Height 2020-09-05 16:45:00 [facility] [place] Temperature Oral (F) 2020-09-05 16:45:00 97.7 F [facility] [place] Weight 2020-07-02 20:45:00 [facility] [place] Height 2020-07-02 20:45:00 [facility] [place] Temperature Oral (F) 2020-07-02 20:45:00 98.1 F [facility] [place] Weight 2020-05-19 20:30:00 [facility] [place] Height 2020-05-19 20:30:00 [facility] [place] Temperature Oral (F) 2020-05-19 20:30:00 97.9 F [facility] 2020-05-19 20:30:00 [facility] Diastolic (mm Hg) 2020-05-19 20:30:00 Mem orial [place] Systolic (mm Hg) 2020-05-19 20:30:00 Andre rial [place] Weight 2020-05-05 19:15:00 [facility] [place] Height 2020-05-05 19:15:00 [facility] [place] Temperature Oral (F) 2020-05-05 19:15:00 98.1 F [facility] [place] Heart Rate 2020-05-05 19:15:00 [facility] [place] Diastolic (mm Hg) 2020-05-05 19:15:00 Mem orial [place] Systolic (mm Hg) 2020-05-05 19:15:00 Andre rial [place] Systolic (mm Hg) 2020-04-30 19:14:00 Andre rial [place] Diastolic (mm Hg) 2020-04-30 19:14:00 Mem orial [place] Heart Rate 2020-04-30 19:14:00 [facility] [place] Respitory Rate 2020-04-30 19:14:00 Memori al [place] Temperature Oral (F) 2020-04-30 19:14:00 97.7 F [facility] [place] Height 2020-04-30 19:14:00 182.88 cm [facility] [place] Weight 2020-04-30 19:14:00 [facility] [place] BMI Calculated 2020-04-30 19:14:00 Memori al [place] Height 2020-04-30 14:27:00 182.88 cm [facility] [place] Weight 2020-04-30 14:27:00 [facility] [place] BMI Calculated 2020-04-30 14:27:00 Memori al [place] Weight 2020-01-24 20:00:00 [facility] [place] Height 2020-01-24 20:00:00 [facility] [place] Temperature Oral (F) 2020-01-24 20:00:00 98.1 F [facility] [place] Heart Rate 2020-01-24 20:00:00 [facility] [place] Diastolic (mm Hg) 2020-01-24 20:00:00 Mem orial [place] Systolic (mm Hg) 2020-01-24 20:00:00 Andre rial [place] Systolic (mm Hg) 2019-10-08 16:59:00 Andre rial [place] Diastolic (mm Hg) 2019-10-08 16:59:00 Mem orial [place] Heart Rate 2019-10-08 16:59:00 [facility] [place] Respitory Rate 2019-10-08 16:59:00 Memori al [place] Temperature Oral (F) 2019-10-08 16:59:00 98.7 F [facility] [place] Height 2019-10-08 16:59:00 183.5 cm [facility] [place] Weight 2019-10-08 16:59:00 [facility] [place] BMI Calculated 2019-10-08 16:59:00 Memori al [place] Height 2019-04-17 16:09:00 182.88 cm [facility] [place] Weight 2019-04-17 16:09:00 [facility] [place] BMI Calculated 2019-04-17 16:09:00 Memori al [place] Systolic (mm Hg) 2019-04-10 20:07:00 Andre rial [place] Diastolic (mm Hg) 2019-04-10 20:07:00 Mem orial [place] Heart Rate 2019-04-10 20:07:00 [facility] [place] Respitory Rate 2019-04-10 20:07:00 Memori al [place] Temperature Oral (F) 2019-04-10 20:07:00 97.6 F [facility] [place] Height 2019-04-10 20:07:00 180.34 cm [facility] [place] Weight 2019-04-10 20:07:00 [facility] [place] BMI Calculated 2019-04-10 20:07:00 Memori al [place] Weight 2018-11-13 18:04:00 [facility] [place] BMI Calculated 2018-11-13 18:04:00 Memori al [place] Heart Rate 2018-11-13 18:04:00 [facility] [place] Respitory Rate 2018-11-13 18:04:00 Memori al [place] Height 2018-11-13 18:04:00 183 cm [facility] [place] Systolic (mm Hg) 2018-11-13 18:04:00 Andre rial [place] Diastolic (mm Hg) 2018-11-13 18:04:00 Mem orial [place] Respitory Rate 2018-02-16 17:38:00 Memori al [place] Heart Rate 2018-02-16 17:38:00 [facility] [place] Height 2018-02-16 17:38:00 180.34 cm [facility] [place] BMI Calculated 2018-02-16 17:38:00 Memori al [place] Weight 2018-02-16 17:38:00 [facility] [place] Temperature Oral (F) 2018-02-16 17:38:00 98.8 F [facility] [place] Systolic (mm Hg) 2018-02-16 17:38:00 Andre rial [place] Diastolic (mm Hg) 2018-02-16 17:38:00 Mem orial [place] BMI Calculated 2018-02-16 13:48:00 Memori al [place] Weight 2018-02-16 13:48:00 [facility] [place] Height 2018-02-16 13:48:00 182.88 cm [facility] [place] Systolic (mm Hg) 2018-02-16 13:48:00 Andre rial [place] Diastolic (mm Hg) 2018-02-16 13:48:00 Mem orial [place] Heart Rate 2018-02-16 13:48:00 [facility] [place] Respitory Rate 2018-02-16 13:48:00 Memori al [place] Weight 2018-02-14 17:44:00 [facility] [place] BMI Calculated 2018-02-14 17:44:00 Memori al [place] Height 2018-02-14 17:44:00 182.88 cm [facility] [place] BMI Calculated 2018-01-03 13:38:00 Memori al [place] Weight 2018-01-03 13:38:00 [facility] [place] Height 2018-01-03 13:38:00 183 cm [facility] [place] Systolic (mm Hg) 2018-01-03 13:38:00 Andre rial [place] Diastolic (mm Hg) 2018-01-03 13:38:00 Mem orial [place] Respitory Rate 2018-01-03 13:38:00 Memori al [place] Heart Rate 2018-01-03 13:38:00 [facility] [place] Procedures Procedure Date / Time Performed Performing Clinician [facility] e Insertion of tunnelled [facility] [place] dialysis catheter using fluoroscopic guidance Plan of Care Planned Activity Planned Date Details Comments Source Future Scheduled 2021-03-01 INFLUENZA VACCINE [place] [facility] 00:00:00 [code = INFLUENZA VACCINE] Future Scheduled 2011 COLONOSCOPY SCREENING [place] [facility] 00:00:00 [code = COLONOSCOPY SCREENING] Future Scheduled 2011 SHINGLES VACCINES (#1) [place] [facility] 00:00:00 [code = SHINGLES VACCINES (#1)] Future Scheduled 1979 Hepatitis C screening [place] [facility] 00:00:00 (procedure) [code = 215209885] Future Scheduled 1973 COVID-19 VACCINE (1) [facility] [place] [facility] 00:00:00 [code = COVID-19 VACCINE (1)] Future Scheduled 1971 DIABETES: RETINAL EYE [place] [facility] 00:00:00 EXAM [code = DIABETES: RETINAL EYE EXAM] Future Scheduled 1971 DIABETIC FOOT EXAM [place] [facility] 00:00:00 [code = DIABETIC FOOT EXAM] Future Scheduled 1971 URINE MICROALBUMIN [place] [facility] 00:00:00 [code = URINE MICROALBUMIN] Encounters Start End Encounter Admission Attending Care Care Encounter Source Date/Time Date/Time Type Type Clinicians Facility Department ID 2019-10-01 Inpatient [id number] 13:35:35 2021-01-30 2021-01-30 Outpatient [id number] 11:00:00 11:00:00 2020-12-30 2021-01-28 Outpatient De [facility] [id number] 11:00:00 23:59:00 Yamel Jungksandra Patino 2020-12-30 2020-12-30 Outpatient [id number] 11:00:00 11:00:00 2020-12-04 2020-12-10 Outpatient De [facility] [id number] 11:00:00 23:59:00 Mariusz Jung 2020-12-10 2020-12-10 Telephone STELLA Chowdhury [id number] 00:00:00 00:00:00 Thuy Hart [id number] [place] [id number] [facility] [id number] [address] 2020-12-10 2020-12-10 Orders Doctor SANCHEZ [id number] 00:00:00 00:00:00 Only Unassigned, JESUSITA [id number] [place] [facility] [id number] 2020-12-09 2020-12-09 [facility] [id number] eClinic 11:45:00 11:45:00 Branch Branch [facility]Work s Podiatry [facility] 2020-12-04 2020-12-04 [id number] 11:00:00 11:00:00 2020-10-09 2020-11-07 Outpatient De [facility] [id number] 11:00:00 23:59:00 Fabiana 11 Saloni Patino 2020-10-09 2020-10-09 [id number] 11:00:00 11:00:00 2020-09-11 2020-09-11 Outpatient [facility] [id number] eClinic 14:22:00 14:22:00 Branch Branch [facility]Work [facility] Podiatry [facility] 2020-09-05 2020-09-05 Outpatient [facility] [id number] eClinic 10:45:00 10:45:00 Branch Branch [facility]Work [facility] Podiatry [facility] 2020-08-04 2020-09-02 Outpatient De [facility] [id number] 11:00:00 23:59:00 Fabiana Saloni Patino 2020-09-02 2020-09-02 [id number] 08:00:00 08:00:00 2020-08-04 2020-08-04 Outpatient [id number] 11:00:00 11:00:00 2020-07-02 2020-07-02 Outpatient [facility] [id number] eClinic 14:45:00 14:45:00 Branch Branch [facility]Work [facility] Podiatry [facility] 2020-04-30 2020-05-29 Outpatient [place] [facility] [id number] 09:21:00 23:59:00 Edy Oliver Longoria 2020-05-19 2020-05-19 Outpatient [facility] [id number] eClinic 14:30:00 14:30:00 Branch Branch alWork [facility] 2020-05-05 2020-05-05 Outpatient [facility] [id number] eClinic 14:15:00 14:15:00 Branch Branch [facility] 2020-04-30 2020-04-30 Outpatient [facility] CAR [id number] [facility] 09:21:00 09:21:00 2020-03-01 2020-03-01 Outpatient [facility] [id number] [facility] 08:00:00 08:00:00 2020-01-24 2020-01-24 Outpatient [facility] [id number] eClinic 15:00:00 15:00:00 Cadence Cadence morganCheyanne [facility] 2019-11-30 2019-11-30 Outpatient [facility] [id number] [facility] 15:00:00 15:00:00 2019-10-08 2019-11-06 [facility] [id number] 11:36:00 23:59:00 Bull Jung 2019-10-13 2019-10-13 Outpatient De [facility] [id number] 13:12:00 23:59:00 Jessica Jungra Carey 2019-10-08 2019-10-08 Outpatient [facility] [id number] [facility] 11:36:00 11:36:00 2019-09-06 2019-09-06 Outpatient [facility] [id number] [facility] 15:00:00 15:00:00 2019-07-04 2019-08-02 [facility] [id number] 08:20:00 23:59:00 Jessica Jung 2019-07-04 2019-07-04 Outpatient [facility] [id number] [facility] 08:20:00 08:20:00 2019-06-04 2019-06-04 Outpatient [facility] [id number] [facility] 15:00:00 15:00:00 2019-04-10 2019-05-09 Outpatient Patarroyo [facility] [id number] 13:22:00 23:59:00 Edy Juan Carlos Longoria 2019-04-17 2019-04-17 Outpatient Patarroyo [facility] [id number] 11:04:00 23:59:00 Edy Jordon Longoria 2019-04-17 2019-04-17 Outpatient [facility] CAR [id number] [facility] 11:04:00 11:04:00 2019-04-10 2019-04-10 Outpatient [facility] CAR [id number] [facility] 13:22:00 13:22:00 2019-04-02 2019-04-02 Outpatient [facility] [id number] [facility] 15:00:00 15:00:00 2019-03-09 2019-03-09 Outpatient [facility] [id number] [facility] 15:00:00 15:00:00 2019-02-22 2019-02-22 Outpatient [facility] [id number] [facility] 11:00:00 11:00:00 2019-02-05 2019-02-05 Outpatient [facility] [id number] [facility] 15:00:00 15:00:00 2019-01-08 2019-01-08 Outpatient [facility] [id number] [facility] 15:00:00 15:00:00 2018-11-13 2018-12-12 Outpatient De [facility] [id number] 12:05:00 23:59:00 Jordon Jung 2018-11-13 2018-11-13 Outpatient [facility] [id number] [facility] 12:05:00 12:05:00 2018-10-23 2018-10-23 Outpatient [facility] [id number] [facility] 15:00:00 15:00:00 2018-08-30 2018-08-30 Outpatient PhilippeAjhaideralaina [facility] [id number] 15:00:00 23:59:00 32 2018-07-19 2018-07-19 Outpatient De [facility] [id number] 15:00:00 23:59:00 Fabiana 63 Saloni Patino 2018-06-16 2018-06-16 Outpatient De [facility] [id number] 15:00:00 23:59:00 Fabiana 35 Saloni Patino 2018-04-11 2018-05-10 Outpatient Letitia, [facility] [id number] 12:00:00 23:59:00 Joie Schwarz 03 2024-07-31 2018-04-11 Outpatient Sergio Yeung [facility] [id number] 12:30:00 12:30:00 Faisal 57 2018-04-11 2018-04-11 Outpatient Sergio Yeung [facility] [id number] 12:30:00 12:30:00 Faisal 56 2018-02-14 2018-03-15 Outpatient De [facility] [id number] 09:24:00 23:59:00 Goljaswantne, 02 Saloni Carey 2018-02-16 2018-02-16 Outpatient Mauricio [facility] [id number] 08:42:00 23:59:00 Renard 2018-02-16 2018-02-16 [facility] [id number] 13:20:00 13:20:00 Renard 2018-02-14 2018-02-14 Outpatient De [facility] [id number] 11:00:00 11:00:00 Joannane, 03 Saloni Patino 2018-01-03 2018-02-01 Outpatient De [facility] [id number] 08:31:00 23:59:00 Golovine, 01 Saloni Patino Results Test Description Test Time Test Comments Results Result Comments Source URINE AND STOOL 2019-10-08 Light Yellow Memoria l 19:01:39 *NA*(10/08/19 Marlon 2:01 PM) URINE AND STOOL 2019-10-08 Clear (10/08/19 Memori al 19:01:39 2:01 PM) Marlon URINE AND STOOL 2019-10-08 19:01:39 Test Item Value Reference Range Interpretation Comme nts UA Spec Grav (test code = UA Spec Grav) 1.011 1 [facility] SWCUE3423-82-12 19:01:39 Test Item Value Reference Range Interpretation Comments UA pH (test code = UA pH) 5.0 1 5.0-8.0 [facility] KQKOD5682-35-20 19:01:39Negative *NA*(10/08/19 2:01 PM) [facility] VAYAO0024-73-02 19:01:39Negative (10/08/19 2:01 PM) [facility] KURBZ3305-96-22 19:01:39<1.0[facility] DJXTI7683-51-40 19:01:39Negative (10/08/19 2:01 PM)[facility] FJLJJ7470-54-68 19:01:39Negative (10/08/19 2:01 PM)[facility] STOOL 2019-10-08 19:01:391[facility] NATLI7597-90-16 19:01:391[facility] XIHO2151-09-70 19:01:88568.00[facility] PBHJ8794-97-38 19:01:3931.3[facility] XLZM0568-40-23 19:01:3917.6[facility] URINE BODN6197-66-23 19:01:82642.00[facility] MELG1247-44-64 19:01:39 14.7[facility] DXQX1544-77-90 19:01:39 Test Item Value Reference Range Interpretation Comments U Prot/Creat (test code = U 0.08 1 Prot/Creat) [facility] ICUD8134-67-54 19:01:69554.00[facility] CHEM 2019-10-08 19:01:3931.3[facility] EKET3080-85-98 19:01:3917.6[facility] HermannANEMIA STLPZ4021-85-68 16:44:42600Adzqsbex HermannANEMIA LXOQO0584-11-42 16:44:0053[facility]annANEMIA KFMGO0760-51-95 16:44:48837Nuwkebgr [place] ANEMIA SBDYT1697-57-86 16:44:92307Jjldzamr HermannANEMIA XXPQE1339-47-27 16:44:0025[facility] HermannCHEM ZSUHT3682-59-06 16:44:21592Dnpqvgcj HermannCHEM TSCGL7246-02-98 16:44:0064[facility]annCHEM ITPDW4715-04-58 16:44:004.73 [facility]annCHE[facility] CHCXE1804-47-63 16:44:12295Mvsqidma HermannCHEM PANEL 2019-10-08 16:44:003.4[facility]annCHEM ZTGNR6809-46-57 16:44:20916Yikjymol HermannCHEM YFEAA8943-89-18 16:44:0028[facility]annCHEM TBMBB7132-73-69 16:44:007.7[facility]annCHEM JPOTH9806-66-37 16:44:007.0[facility]annCHEM WDZCW5730-91-96 16:44:003.5[facility]annCHEM HXQRV0767-11-47 16:44:0015 [facility]annCHEM GYCXG2257-00-21 16:44:0015[facility]annCHEM PANEL 2019-10-08 16:44:22463Yfzhbqxi HermannCHEM YFSLI2446-65-47 16:44:000.4[facility]annCHEM VQWRF9850-74-61 16:44:0013.4[facility]annCHEM MTUNG8616-55-52 16:44:00 Test Item Value Reference Range Interpretation Comments B/C Ratio (test code = B/C Ratio) 14 1 6-25 [facility] CQFJL8579-85-50 16:44:003.5[facility] HermannCHEM PANEL 2019-10-08 16:44:00 Test Item Value Reference Range Interpretation Comments A/G Ratio (test code = A/G Ratio) 1.0 1 0.7-1.6 [facility]annCHE[facility] TBUUJ3253-57-48 16:44:0013[facility]annCHEM PANEL 2019-10-08 16:44:001.9[facility]annCHEM BFRGM2750-36-68 16:44:004.0[facility]annCHEM WXIQO3023-71-67 16:44:0010.7[facility]annCHEM WSCLS8198-42-01 16:44:0021.6[facility]annCHEM RPVYP1344-27-78 16:44:004.72[facility] CHEM LPYEK9003-54-89 16:44:0013[facility] BgedbwyEGSZAUQIQW6805-83-34 16:44:00 Test Item Value Reference Range Interpretation Comments PT (test code = PT) 13.7 s 12.0-14.7 Memorial CiqsvjcPGVPHRVHQO6139-27-50 16:44:00 Test Item Value Reference Range Interpretation Comments INR (test code = INR) 1.05 1 0.85-1.17 [facility] FlgkyqnOEDACZZHTZ5210-27-14 16:44:00 Test Item Value Reference Range Interpretation Comments PTT (test code = PTT) 34.0 s 22.9-35.8 [facility] XmxrfwdYQMPYZOADK7295-27-58 16:44:006.2[facility] HermannHEMATOLOGY 2019-10-08 16:44:004.11[facility] NowgduhGVBZSUVXUY7483-75-60 16:44:0012.4[facility] UtbbztjMSZVNXKYZC9280-52-06 16:44:0036.1[facility] HuveexrXPNFQQCTPM0822-25-31 16:44:0087.7[facility] QdysbuaGTQWHFRDXD4885-82-79 16:44:00 Test Item Value Reference Range Interpretation Comments MCH (test code = MCH) 30.2 pg 27.0-31.0 [facility] DlrotbqCTPDXFBLNJ4143-56-65 16:44:0034.4[facility] HermannHEMATOLOGY 2019-10-08 16:44:0013.5[facility] TewamdyJKPGBWQPPS9745-43-18 16:44:79597Owyouymz OqdbjitWXWCXGKNXO0142-27-93 16:44:009.2[facility] NkiuxvtTIYWGPKMAF3013-61-12 16:44:0092[facility] DhfljodUGREPVRUXQ4941-24-38 16:44:00Negative (10/08/19 11:44 AM)[facility] VxdmfsmJSQYWPBRJQ7261-73-33 16:44:00 Test Item Value Reference Range Interpretation Comments dRVV Ratio (test code = dRVV Ratio) 1.23 1 [facility] TnpicbhCCNPLIOKTK1600-21-45 16:44:00Negative (10/08/19 11:44 AM)[facility] CwaufbrAESQWTONPR8557-04-73 16:44:00Negative (10/08/19 11:44 AM)[facility] UTBMAZAEMP8976-87-46 16:44:0077[facility] MndqwsaGSTTDJAQQL7951-24-73 16:44:0090 [facility] CkhclhsCWFYXXYSXU7150-81-98 16:44:0070.5[facility] HermannHEMATOLOGY 2019-10-08 16:44:0018.3[facility] NydiogsOLISJVZDFJ4757-97-22 16:44:006.7[facility] IdefigbXCOIERFVFG6756-97-53 16:44:003.5[facility] GhgulyuMKCMXGJIWG5989-41-19 16:44:001.0[facility] MezpgqtWYEFYVRJXT9163-22-25 16:44:004.3[facility] KQXFFOVGIM2259-94-58 16:44:001.1[facility] AiujysuTBNPTSIDRZ6302-87-01 16:44:000.4 [facility] EbkpnuwIXZLLBTAIT7122-92-33 16:44:000.2[facility] HermannHEMATOLOGY 2019-10-08 16:44:000.1[facility] ElwhtdzQDYVIGBMWM5784-46-24 16:44:001.5[facility] VqbmtgxMSUGWAZAKO8359-75-00 16:44:00<1.6[facility] ShbqqqqRDSTDTCFJX7181-29-87 16:44:006.6[facility] HbpqxnxAEQTHBMOED5143-40-13 16:44:0039.8[facility] MHXQWVZWNB3694-34-81 16:44:39087.34[facility] IhmfcuaTDCNEVZVXA2275-13-25 16:44:00 121.80[facility] SotjwqeDLDKRWCGFO8096-34-95 16:44:001.29[facility] MKQANIXPTM3277-78-81 16:44:00Negative (10/08/19 11:44 AM)[facility] NKVFXFWEZC4272-29-08 16:44:00Reactive *ABN*(10/08/19 11:44 AM)[facility] WMSBATZIYS3621-91-39 16:44:00>8.0[facility] UseneqxSLTWZAEVRE9105-59-90 16:44:00Negative *NA*(10/08/19 11:44 AM)[facility] MkrbxspHPMJACFWGQ6897-75-41 16:44:00Positive *NA*(10/08/19 11:44 AM)[facility] OxclzspTPKJPNLLVT6446-62-79 16:44:00>1000.0[facility] KawuaybLAXSLYLNDI9131-73-21 16:44:00Negative *NA*(10/08/19 11:44 AM)[facility] NlliggkZMUOHAOEGY4358-30-42 16:44:00Negative *NA*(10/08/19 11:44 AM)[facility] OifefsbFPFWBRIUUM5872-56-29 16:44:00Negative *NA*(10/08/19 11:44 AM)[facility] RgcjwciLDZPYRFKNI4626-35-60 16:44:00<0.2 [facility] XqnnknhLBHIJNFBWP4975-57-89 16:44:00>8.0[facility] HermannIMMUNOLOGY 2019-10-08 16:44:00Negative (10/08/19 11:44 AM)[facility]annIMMUNOLOGY 2019-10-08 16:44:00Non-Reactive *NA*(10/08/19 11:44 AM)[facility]annIMMUNOLOGY 2019-10-08 16:44:007.8[facility] MchawcdJPYBYMIPUI7585-92-94 16:44:004.9[facility] LuopngcDDDYHQJPVX8859-58-52 16:44:0055.2[facility] VxfzrqsQWVNLIXGES0590-14-51 16:44:007.8[facility] MxdibvfLHSNKT7033-64-26 16:44:0091[facility] HermannLIPIDS 2019-10-08 16:44:37709Ecvmzhiu QfejlxfBUAGBA7922-94-34 16:44:0038[facility] DfzwbzfRIEGQQ8271-64-04 16:44:00 Test Item Value Reference Range Interpretation Comments CHD Risk (test code = CHD Risk) 3.71 1 4.00-7.30 [facility] BbxancnJCNDFV2184-13-61 16:44:0085[facility] DnzobahPXRPPD2862-06-76 16:44:00 Test Item Value Reference Range Interpretation Comments VLDL (test code = VLDL) 18 1 [facility] HermannPARATHYROID FOHUZOB3397-59-95 16:44:01183.1[facility] SPECIAL WYSQVZSEI6881-96-46 16:44:00<1.0[facility]annSPECIAL CHEMISTRY 2019-10-08 16:44:00<1.0[facility] HermannSPECIAL MBENPGFYG6999-82-52 16:44:00 8.7[facility] HermannSPECIAL CALOHZYKP0622-24-12 16:44:000.46[facility] ANEMIA RAZRW4687-68-60 17:14:0047[facility] HermannANEMIA MCIRC8508-42-75 17:14:00 257[facility] HermannANEMIA BSRES7651-07-89 17:14:99269Zfitsyje HermannANEMIA FKVKV0487-77-88 17:14:0018Mem[facility] HermannANEMIA DMOXO5064-36-99 17:14:08749 [facility]annCHEM DJQKC0386-65-52 17:14:002.1[facility] HermannCHEM PANEL 2018-11-13 17:14:005.0[facility] HermannCHEM MJCVK1151-17-75 17:14:0018.1[facility] HermannCHEM YBRWE2756-26-73 17:14:0010.6[facility] MizqsjuCOICFSDVXNBI6767-10-59 17:14:0011.4[facility] HbuvicvELMSOATANMTG1795-98-58 17:14:002.9[facility] MBQJTXUVTRZJ7848-37-12 17:14:00 Test Item Value Reference Range Interpretation Comments B/C Ratio (test code = B/C Ratio) 16 1 6-25 [facility] LztprxfCFDWOIWKZLJG4371-88-28 17:14:00 Test Item Value Reference Range Interpretation Comments A/G Ratio (test code = A/G Ratio) 1.3 1 0.7-1.6 [facility] ErresjfEOHDMASYWRBQ2135-75-16 17:14:0015[facility] HermannELECTROLYTES 2018-11-13 17:14:87061Qbsovefl XmcikysCHVGNNFUMWAS6229-56-63 17:14:000.4[facility] SrrjsxrGOTYSBXMPZWI4559-61-51 17:14:0022[facility] DeczefsPVAZTKXDQIWA1827-81-41 17:14:003.7[facility] UzccmzhVGMPTCOELXSZ9495-89-68 17:14:0021[facility] BGKYSPBCUBEQ4400-63-14 17:14:35989Ugxaehlx ZnseupdTPRIGPOOTAAU5727-44-20 17:14:004.4[facility] FicltrtQZPENMWUJZIX1654-14-61 17:14:00145Zfacckrw Mar[facility] DKPLLOANQXPV4873-72-89 17:14:0027[facility] AvdufqrDCNVLYBXLWBJ0398-90-62 17:14:00 7.6[facility] XvzjcadPTHXTQJOSETY0124-20-07 17:14:0065[facility] HermannELECTROLYTES 2018-11-13 17:14:004.16[facility] JrpfvpkSKBYLHNZKOMT2227-47-59 17:14:006.6 [facility] UrrfbcyJYEJTOWFMHKS3077-39-13 17:14:0063[facility]annHEMATOLOGY 2018-11-13 17:14:006.6[facility] RnewoxdLRPUENMOFG7160-88-24 17:14:002.8[facility] NajdwieSYDDRZYYGJ9838-83-09 17:14:000.1[facility] XofcavxRKFYWEMDGA2936-62-49 17:14:000.1[facility] BqcpfurFSUCDOHZSC2009-78-86 17:14:000.3[facility] SAVXPUEHFP8688-07-16 17:14:0023.8[facility] WeiiyjlBGNJVOEIVI1954-26-06 17:14:00 1.0[facility] WsgvgysWKBBNDDOYF6505-18-40 17:14:003.3[facility] HermannHEMATOLOGY 2018-11-13 17:14:001.2[facility] BayiuydZTZUCJMCHL6197-42-98 17:14:0065.8[facility] YifxeoqHSQVSAFKKR2988-52-63 17:14:00 Test Item Value Reference Range Interpretation Comments PTT (test code = PTT) 32.5 s 22.9-35.8 [facility] QradxywGKKVIILWQX6644-41-03 17:14:00 Test Item Value Reference Range Interpretation Comments PT (test code = PT) 13.4 s 12.0-14.7 [facility] KojonulLSGSIPTWBZ2271-75-77 17:14:00 Test Item Value Reference Range Interpretation Comments INR (test code = INR) 1.04 1 0.85-1.17 [facility] GdbigxwKFHTZSYLKD9804-59-45 17:14:005.0[facility] HermannHEMATOLOGY 2018-11-13 17:14:0012.3[facility] KwhcgrdRONFJLRKWQ7042-52-89 17:14:0087.0[facility] JaogaqcIGLTNUUDDY9657-80-02 17:14:004.16[facility] AnynhzdFUQFESKBHT4117-80-00 17:14:0036.1[facility] IphfsaaITAAXNSPXF1918-17-81 17:14:009.4[facility] PJRFTHETVM5373-76-84 17:14:63107Pzzwgemx CamirdwHEBIZGCCRG9074-15-67 17:14:00 Test Item Value Reference Range Interpretation Comments MCH (test code = MCH) 29.5 pg 27.0-31.0 [facility] QtihfqnDACPZHJHTB4467-19-00 17:14:0033.9[facility] HermannHEMATOLOGY 2018-11-13 17:14:0014.1[facility] SvbljmiJCLAZEKJSJ7172-71-32 17:14:0060.9[facility] LcmiipkJCOBSXAVVH1648-25-07 17:14:004.2[facility] SxyieomTPGPLNMJLC4711-15-87 17:14:007.5[facility] JfpnnzeBYOLLRNVAD8865-27-66 17:14:00<0.91[facility] LYSNACKNKB3303-51-15 17:14:006.7[facility] NuhrjxdECSQNLUPRK6281-81-30 17:14:00 >8.0[facility] FdjfmgcOTNJRRWOBM9243-29-82 17:14:00<0.2[facility] BLJEAEJDWK3946-78-63 17:14:000.2[facility] FmzbuiwAJPJMGAKBG5019-50-85 17:14:00 Negative *NA*(11/13/18 12:14 PM)[facility] RkviakcVDCMQGSVIX1188-25-40 17:14:0018.3 [facility] OwabschXAZIVIWICD5878-39-52 17:14:00Negative *NA*(11/13/18 12:14 PM) [facility] TvftzapOHRLQYMCMU1994-63-58 17:14:00Negative *NA*(11/13/18 12:14 PM) [facility] TcxxzjzOKXSRHZEDB0838-02-89 17:14:00Negative *NA*(11/13/18 12:14 PM) [facility] NpkdckeKGONXDLCLC3073-44-99 17:14:002.05[facility] HermannIMMUNOLOGY 2018-11-13 17:14:38820.97[facility] NlsqbqiJTTVFTKXKU5583-56-62 17:14:0069.67 [facility] AmaredbZWPDPLKKGB6912-55-89 17:14:00Negative (11/13/18 12:14 PM)[facility] EcwynmnGBMWLLCNXS3611-54-72 17:14:006.6[facility] YcxsskcMGMZTWXXOJ0951-44-17 17:14:000.80[facility] JwieqahBSOLHUUWUG3194-49-53 17:14:000.82[facility] APZRVYKRYG9627-18-87 17:14:000.94[facility] ZxhbjncMLXIPUKLBL7226-52-44 17:14:00 3.73[facility] VjypgdcKGUGQMQJFJ2702-00-01 17:14:000.31[facility] HermannIMMUNOLOGY 2018-11-13 17:14:0056.5[facility] VguuzrmSULZEXDWFZ2213-79-44 17:14:0012.4[facility] ZlnaqleDNFTXGNKHW9778-66-78 17:14:004.7[facility] NxvsmkaNBIXMAXKBY3949-43-34 17:14:0014.3[facility] NpnqdugAVJGRHFRDH0329-33-55 17:14:0012.1[facility] DEPLNXFAWH5370-07-40 17:14:00>8.0[facility] VarbegzQRGXRYYOTX4974-62-05 17:14:00Non-Reactive *NA*(11/13/18 12:14 PM)[facility] GpcudsiXNJWIDYEXB0444-20-58 17:14:00<0.2[facility] CbbgbutLFTPCUNPYQ6527-46-42 17:14:00Reactive *ABN*(11/13/18 12:14 PM)[facility] XqdpogqDPUZPO2210-97-47 17:14:00 Test Item Value Reference Range Interpretation Comments CHD Risk (test code = CHD Risk) 3.04 1 4.00-7.30 [facility] RakqmfmIKWKPV9360-01-92 17:14:00 Test Item Value Reference Range Interpretation Comments VLDL (test code = VLDL) 25 1 [facility] LhozgewWDFQQX2948-35-99 17:14:0067[facility] RvkmepiWZRZAJ7903-16-82 17:14:42728Fcqiirgt XwhlwbeIVVEPP7049-86-81 17:14:09368Dkmghvrd HermannLIPIDS 2018-11-13 17:14:0045[facility] HermannPARATHYROID RTKXBEB4516-59-36 17:14:82951.6 [facility] HermannSPECIAL ECLDJEMPK1762-44-31 17:14:000.42[facility] HermannSPECIAL WOSCHZLCR9401-71-90 17:14:007.1[facility] FvmwzfbBUSILCVJLM7107-81-59 15:59:0012.2 [facility] DkhfkkxTIHZXERQCA6814-17-53 15:59:0036.0[facility] HermannHEMATOLOGY 2018-04-11 15:59:41407Kwpwkugw XwxsclkJEQGICXJSG6523-92-09 15:59:59242Vtugobpk VssejmsYZVCQXIMJP6925-67-50 15:59:003.3[facility]
[2021-02-07] MEDS ORDERED: TETANUS & DIPHTHERIA TOX,ADULT 0.5 ML VIAL ONE (17:49)
--- NOTE | 2021-02-07 18:36 | RAD REPORT ---
EXAM DESCRIPTION: Shoulder Right 2 View - 02/07/2021 6:12 pm CLINICAL HISTORY: PAIN COMPARISON: No comparisons TECHNIQUE: Internal and external rotation views of the right shoulder were obtained. FINDINGS: There is no fracture or dislocation. Mild AC joint degenerative changes are present. Acro mial humeral joint space is narrowed slightly. No abnormal soft tissue calcifications. No acute or cardoso spicious findings. IMPRESSION: Mild right shoulder joint degenerative change as detailed. No acute finding.
--- NOTE | 2021-02-07 18:38 | RAD REPORT ---
EXAM DESCRIPTION: RAD - Hand Right 3 View - 02/07/2021 6:12 pm CLINICAL HISTORY: PAIN COMPARISON: Hand Right 3 View dated 03/03/2012 FINDINGS: No fracture is identified. There is no dislocation or periosteal reaction noted. Minimal I P joint space narrowing is present without erosion or spurring seen. Small cyst is present within the lunate bone, possibly degenerative. No foreign body or significant soft tissue abnormality. Arterial calcifications are present. IMPRESSION: Mild right hand degenerative change as detailed. No acute finding.
--- NOTE | 2021-02-07 18:44 | ER ---
Nurse's Notes [facility] Name: Julian Morillo Age: 61 yrs Sex: Male : 1960 Arrival Date: 02/07/2021 Time: 16:30 Bed 14 Private MD: Diagnosis: Abrasion, right lower leg;Contusion of right hand;Strain of other muscles, fascia and tendons at shoulder and upper arm level, right arm Presentation: 02/07 16:49 Chief complaint: Patient states: Tripped and fell an hour [employer]. Abrasion on R knee, pain ca1 on R shoulder, 5th digit on R hand. Denies LOC. Denies hitting head. Coronavirus screen: Client denies travel out of the [place] in the last 14 days. At this time, the client does not indicate any symptoms associated with coronavirus-19. Ebola Screen: Patient negative for fever greater than or equal to 101.5 degrees Fahrenheit, and additional compatible Ebola Virus Disease symptoms Patient denies exposure to infectious person. Patient denies travel to an Ebola-affected area in the 21 days before illness onset. No symptoms or risks identified at this time. Initial Sepsis Screen: Does the patient meet any 2 criteria? No. Patient's initial sepsis screen is negative. Does the patient have a suspected source of infection? No. Patient's initial sepsis screen is negative. Risk Assessment: Do you want to hurt yourself or someone else? Patient reports no desire to harm self or others. Onset of symptoms was February 07, 2021. 16:49 Method Of Arrival: Wheelchair ca1 16:49 Acuity: IZABEL 4 ca1 Historical: - Allergies: 16:51 No Known Allergies; ca1 - PMHx: 16:51 Diabetes - IDDM; Hypertension; PERITONEAL DIALYSIS; ca1 - PSHx: 16:51 Skin Graft on L leg; ca1 - Immunization history:: Client reports receiving the 2nd dose of the Covid vaccine, Client reports receiving the 1st dose of the Covid vaccine, Flu vaccine is not up to date. - Social history:: Smoking status: Patient denies any tobacco usage or history of. Screenin:02 Abuse screen: Denies threats or abuse. Denies injuries from another. Nutritional ca1 screening: No deficits noted. Tuberculosis screening: No symptoms or risk factors identified. Fall Risk Fall in past 12 months (25 points). Total [place] Fall Scale indicates No Risk (0-24 pts). Assessment: 17:01 General: Appears in no apparent distress. comfortable, Behavior is calm, cooperative, ca1 appropriate for age. Pain: Complains of pain in right hand Pain currently is 4 out of 10 on a pain scale. Neuro: Level of Consciousness is awake, alert, obeys commands, Oriented to person, place, time. Derm: Skin is healthy with good turgor, Skin is pink, warm \T\ dry. Musculoskeletal: Circulation, motion, and sensation intact. Capillary refill < 3 seconds. Injury Description: Abrasion sustained to right knee is Cleaned, dressed with ABX cream and adaptic dressing by pt. was sustained 1-2 hours ago. Vital Signs: 16:49 BP 137 / 77; Pulse 83; Resp 16 S; Temp 97.3(TE); Pulse Ox 98% on R/A; Weight 127.01 kg ca1 (R); Height 6 ft. 0 in. (182.88 cm) (R); Pain 4/10; 16:49 Body Mass Index 37.97 (127.01 kg, 182.88 cm) ca1 ED Course: 16:30 Patient arrived in ED. as 16:51 Triage completed. ca1 16:51 Arm band placed on right wrist. ca1 16:53 Beryl Pace, DEMETRIS is Primary Nurse. ca1 16:56 Salbador Nguyen NP is PHCP. pm1 16:57 David Murillo MD is Attending Physician. pm1 17:02 Patient has correct armband on for positive identification. Bed in low position. Call ca1 light in reach. Side rails up X 1. Pulse ox on. NIBP on. Warm blanket given. 18:12 Shoulder Right (2 View) XRAY In Process Unspecified. EDMS 18:12 Hand Right 3 View XRAY In Process Unspecified. EDMS 18:30 No provider procedures requiring assistance completed. Patient did not have IV access ca1 during this emergency room visit. Administered Medications: 17:31 Drug: Tetanus-Diphtheria Toxoid Adult 0.5 ml {Escort Blind: [employer] Exp: ca1 10/03/2022. Lot #: [id number]. } Route: IM; Site: right deltoid; 18:30 Follow up: Response: No adverse reaction ca1 Outcome: 18:44 Discharge ordered by . pm1 19:08 Discharged to home ambulatory. ak2 19:08 Condition: good 19:08 Discharge instructions given to patient. 19:09 Patient left the ED. ak2 Signatures: Dispatcher [employer] Leslee Mullins Patrick, NP BREAD PACKER pm1 Beryl Pace RN RN Efrain Schwartz ak2
--- NOTE | 2021-02-07 18:44 | EDPHYS ---
Physician Documentation [facility] Name: Julian Morillo Age: 61 yrs Sex: Male : 1960 Arrival Date: 02/07/2021 Time: 16:30 Bed 14 Private MD: ED Physician David Murillo HPI: 02/07 16:59 This 61 yrs old Male presents to ER via Wheelchair with complaints of Fall pm1 Injury, Knee Pain - abrasions. 16:59 Details of fall: The patient fell from an upright position, while walking. Onset: The pm1 symptoms/episode began/occurred 1 hour prior to arrival. Associated injuries: The patient sustained right knee, abrasion, Pain to right hand and right shoulder. Severity of symptoms: in the emergency department the symptoms have improved, washed his abrasion at home. The patient has experienced a previous episode, many years ago, abrasion to left lower leg that resulted in skin graft. Patient wants abx therapy for this abrasion due to fear of possible skin graft if it gets worse. The patient has not recently seen a physician. Historical: - Allergies: 16:51 No Known Allergies; ca1 - PMHx: 16:51 Diabetes - IDDM; Hypertension; PERITONEAL DIALYSIS; ca1 - PSHx: 16:51 Skin Graft on L leg; ca1 - Immunization history:: Client reports receiving the 2nd dose of the Covid vaccine, Client reports receiving the 1st dose of the Covid vaccine, Flu vaccine is not up to date. - Social history:: Smoking status: Patient denies any tobacco usage or history of. ROS: 16:59 Constitutional: Negative for fever, chills, and weight loss, Cardiovascular: Negative pm1 for chest pain, palpitations, and edema, Respiratory: Negative for shortness of breath, cough, wheezing, and pleuritic chest pain, Abdomen/GI: Negative for abdominal pain, nausea, vomiting, diarrhea, and constipation, Back: Negative for injury and pain. 16:59 Neuro: Negative for headache, weakness, numbness, tingling, and seizure. 16:59 MS/extremity: Positive for pain, of the right hand and right shoulder. 16:59 Skin: Positive for abrasion(s), of the lateral aspect of right calf. 16:59 All other systems are negative. Exam: 16:59 Constitutional: This is a well developed, well nourished patient who is awake, alert, pm1 and in no acute distress. Head/Face: Normocephalic, atraumatic. 16:59 Cardiovascular: Exam negative for acute changes, Rate: normal, Rhythm: regular, Pulses: no pulse deficits are appreciated. 16:59 Respiratory: Exam negative for acute changes, respiratory distress, shortness of breath. 16:59 Musculoskeletal/extremity: Extremities: grossly normal except: noted in the right hand: tenderness, There is no evidence of decreased ROM, deformity, noted in the anterior aspect of right shoulder: tenderness, no evidence of decreased ROM, deformity. 16:59 Skin: Appearance: normal except for affected area, injury, abrasion(s), small abrasion noted, of the lateral aspect of right calf. 16:59 Neuro: Exam negative for acute changes, Orientation: is normal, Motor: is normal, Sensation: is normal, no obvious gross deficits. Vital Signs: 16:49 BP 137 / 77; Pulse 83; Resp 16 S; Temp 97.3(TE); Pulse Ox 98% on R/A; Weight 127.01 kg ca1 (R); Height 6 ft. 0 in. (182.88 cm) (R); Pain 4/10; 16:49 Body Mass Index 37.97 (127.01 kg, 182.88 cm) ca1 MDM: 16:57 Patient medically screened. pm1 18:43 Data reviewed: vital signs. Data interpreted: Pulse oximetry: on room air is 98 %. pm1 Interpretation: normal. 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 Exp: ca1 10/03/2022. Lot #: [id number]. } Route: IM; Site: right deltoid; 18:30 Follow up: Response: No adverse reaction ca1 Disposition Summary: 02/07/21 18:44 Discharge Ordered Location: Home pm1 Problem: new pm1 Symptoms: have improved pm1 Condition: Stable pm1 Diagnosis - Abrasion, right lower leg pm1 - Contusion of right hand pm1 - Strain of other muscles, fascia and tendons at shoulder and upper arm level, right pm1 arm Followup: pm1 - With: Emergency Department - When: As needed - Reason: Worsening of condition Followup: pm1 - With: Private Physician - When: 2 - 3 days - Reason: Recheck today's complaints, Continuance of care, Re-evaluation by your physician Discharge Instructions: - Discharge Summary Sheet pm1 - Abrasion pm1 - Hand Contusion pm1 - Muscle Strain pm1 Forms: - Medication Reconciliation Form pm1 - Thank You Letter pm1 - Antibiotic Education pm1 - Prescription Opioid Use pm1 Prescriptions: - Cephalexin 500 mg Oral Capsule - take 1 capsule by ORAL route every 12 hours for 10 days; 20 capsule; Refills: pm1 0, Product Selection Permitted - Bactrim DS 800-160 mg Oral Tablet - take 1 tablet by ORAL route every 12 hours for 10 days; 20 tablet; Refills: 0, pm1 Product Selection Permitted Signatures: Dispatcher [employer] EDMS Salbador Nguyen NP BOX ICER pm1 Beryl Pace RN RN ca1
[2021-02-07 19:13] VITALS: BP 137/77; TEMP 97.3; O2SAT 98
== END 2021-02-07 19:09 | disposition home or self-care (01) ==
LOC: ER 16:25
DX: S46.811A Strain of other muscles, fascia and tendons at shoulder and upper arm level, right arm, initial encounter (principal); S80.811A Abrasion, right lower leg, initial encounter; S60.221A Contusion of right hand, initial encounter; W19.XXXA Unspecified fall, initial encounter; Y93.01 Activity, walking, marching and hiking; I10 Essential (primary) hypertension; Z99.2 Dependence on renal dialysis; Z23 Encounter for immunization
CPT/HCPCS: 90471; 90714; 99283

== ENCOUNTER 2022-08-07 19:36 | Emergency (ER) | payer OTHER ==
--- OUTSIDE RECORDS SUMMARY | 2022-08-07 19:48 | XMS REPORT | Continuity of Care Document ---
:1960 Author Organization [facility] t Address [facility] [place] [address] Care Team Providers Name Role Phone Ritchie Torrez MD Primary Care Physician DANIEL CROCKER Attending Clinician Unavailable NICOLE JEAN BAPTISTE Attending Clinician Unavailable NICOLE JEAN BAPTISTE Attending Clinician Unavailable LOLA ANGELES Attending Clinician Unavailable TOLU AYERS Attending Clinician Unavailable Doctor Unassigned, [place] Attending Clinician Unavailable Tolu Ayers MD Attending Clinician Lola Angeles DPM Attending Clinician [phone] SAM STUART Attending Clinician Unavailable Sam Stuart MDammed Attending Clinician [phone] Sravanthi LUQUE, Mario Chambers Attending Clinician Hugo LUQUE, Tony Attending Clinician [phone] Radhika WHITEP, Lizeth Attending Clinician Rosa Lynch MA Attending Clinician Unavailable ADELITA LANE Attending Clinician Unavailable Dank LUQUE, Annmarie Estrada Attending Clinician Greg LUQUE, Gustavo Mchugh Attending Clinician Pamela LUQUE, Rene Flores Attending Clinician [phone] Boris LUQUE, Denise Lopez Attending Clinician [phone] Liza LUQUE, Colten Attending Clinician COLTEN DE JESUS Attending Clinician Unavailable Lab, Ang - Db Attending Clinician Unavailable Hudson Chase DO Attending Clinician Federico WILLSON, Omaira Attending Clinician Unavailable Only, Adc Test Attending Clinician Unavailable Keyur Naranjo MD Attending Clinician TIA ERIC Attending Clinician Unavailable JIMMIE HOPE Attending Clinician Unavailable Agnieszka WILLSON, Yesy Attending Clinician Unavailable Dick Mackenize MD Attending Clinician Ashley LUQUE, Misti Attending Clinician Jimmie Hope MD Attending Clinician DANIEL CROCKER Admitting Clinician Unavailable MARIO DUQUE Admitting Clinician Unavailable GUSTAVO GARZA Admitting Clinician Unavailable Misti Ramirez MD Admitting Clinician ADELITA LANE Admitting Clinician Unavailable Payers Payer Name Policy Type Policy Number Effective Date Expiration Date S ource MEDICARE PART A \\T\\ [id number] 2017 B 00:00:00 COMMERCIAL [id number] 2017 NON-CONTRACT 00:00:00 GENERIC Problems Condition Condition Condition Status Onset Resolution Last Treating Co mments Source Name Details Category Date Date Treatment Clinician Date Double Double Disease Active Univers vision vision 7-21 ity of 00:00: Medical Branch Diplopia Diplopia Disease Active Unive rs 7-20 ity of 00:00: Medical Branch ESRD (end ESRD (end Disease Active 2017-08 Overview: Methodi stage stage 0-[address] renal renal 00:00: g of this Hospita disease) disease) 00 note l might be different from the original. 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 Univers (backgroun (backgroun 7 it y of d diabetic d diabetic 00:[place] retinopath retinopath 00 Me dical y) y) Branch Proliferat Proliferat Disease Active U nivers cyndi cyndi 7-08 ity of diabetic diabetic 00:00: [place] retinopath retinopath 00 Me dical y of both y of both Bran ch eyes eyes Vitreous Vitreous Disease Active Unive rs hemorrhage hemorrhage 7-08 it y of of left of left 00:00: [place] eye eye 00 Medical Branch Senile Senile Disease Active Univers nuclear nuclear 7-08 ity of sclerosis, sclerosis, 00:[place] bilateral bilateral 00 Med[place] Branch Hypertensi Hypertensi Disease Active U nivers ve ve 7-08 ity of retinopath retinopath 00:[place] y of both y of both 00 Medi south eyes eyes Branch Refractive Refractive Disease Active U nivers error error 7-08 ity of 00:00: [place] [facility] Essential Essential Disease Active Uni vers hypertensi hypertensi 5-16 it y of on on 00:00: Medical Branch Anemia Anemia Disease Active 2014-08 Univers 1-10 ity of 00:00: [place] [facility] Type 2 Type 2 Disease Active 2014-08 Univers diabetes diabetes 1-04 ity of mellitus mellitus 00:00: [place] with renal with renal 00 Me dical manifestat manifestat Br anch ions not ions not at goal at goal Hypogonadi Hypogonadi Disease Active 2014-08 U nivers sm in male sm in male 1-04 it y of 00:00: [place] 00 [facility] Branch Vitamin A Vitamin A Disease Active Uni vers deficiency deficiency 2-24 it y of 00:00: [place] [facility] Branch Albuminuri Albuminuri Disease Active 2013-08 U nivers a a 1-18 ity of 00:00: [place] [facility] Metabolic Metabolic Disease Active 2013-08 Uni vers syndrome X syndrome X 1-18 it y of 00:00: [place] [facility] Branch Burn scar Burn scar Disease Active 2013-08 Uni vers 1-10 ity of 00:00: [place] [facility] Scarring Scarring Disease Active Unive rs 8-27 ity of 00:00: [place] 00 [facility] Pain Pain Disease Active Univers 8-27 ity of 00:00: [place] [facility] Leg edema, Leg edema, Disease Active U nivers left left 8-27 ity of 00:00: [place] 00 [facility] Vitamin D Vitamin D Disease Active Uni vers deficiency deficiency 8-19 it y of 00:00: [place] [facility] Hypogonadi Hypogonadi Disease Active U nivers sm male sm male 8-19 ity of 00:00: [place] 00 [facility] ED ED Disease Active Univers (erectile (erectile 8-12 ity of dysfunctio dysfunctio 00:[place]: [place] n[place] [facility] Burn Burn Disease Active Univers 7-18 ity of 00:00: [place] 00 [facility] Diabetes Diabetes Disease Recurre Univ ers nce 7-18 ity of 00:00: [place] 00 [facility] Fungus Fungus Disease Active Univers present in present in 7-18 it y of urine urine 00:00: [place] 00 [facility] Branch UTI (lower UTI (lower Disease Active U nivers urinary urinary 7-18 ity of tract tract 00:00: [place] infection) infection) 00 Me dical Branch Atheroscle Atheroscl Problem Active 2021-03-18 Memoria rosis erosis 02:08:43 l Active Marlon Problem 03/18/2021 [facility] Diabetes Diabetes Problem Active 2021-03-18 Memoria mellitus mellitus 02:08:43 l with with [place] peripheral peripheral vascular vascular disease disease Active Problem 03/18/2021 [facility] Onychomyco Onychomyc Problem Active 2021-03-18 Memoria sis osis 02:08:43 l Active [place] Problem 03/18/2021 [facility] Paronychia Paronychi Problem Active 2021-03-18 Memoria of great a of great 02:08:43 l toe of toe of [place] left foot left foot Active Problem 03/18/2021 [facility] Dependence Dependenc Problem Active 2021-03-18 Memoria on renal e on renal 02:08:43 l dialysis dialysis Luis n Active Problem 03/18/2021 [facility] End stage End stage Problem Active 2021-03-18 [facility]oria renal renal 02:08:43 l disease disease [place] Active Problem 03/18/2021 [facility] Paronychia Paronychi Problem Active 2021-03-18 Memoria of great a of great 02:08:43 l toe of toe of [place] right foot right foot Active Problem 03/18/2021 [facility] Type 2 Type 2 Problem Active 2021-03-18 Andre erasmo diabetes diabetes 02:08:43 l mellitus mellitus Luis n without without complicati complicati on, on, unspecifie unspecifie d whether d 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 use Active Problem 03/18/2021 [facility] Venous Venous Problem Active 2021-03-18 Andre erasmo insufficie insufficie 02:08:43 l ncy ncy Active Luis n Problem 03/18/2021 [facility] Dystrophic Diagnosis Active 2021-03-18 Memoria nail Dystrophic 02:08:43 l nail [place] Active Diagnosis 03/18/2021 [facility] Allergies, Adverse Reactions, Alerts Allergy Allergy Status Severity Reaction(s) Onset Inactive Treating Comm ents Source Name Type Date Date Clinician NO KNOWN Drug Active Univers ALLERGIE Class ity of S [facility] [place] Family History Family Member Diagnosis Comments Start Date Stop Date Source Natural father Liver cancer [facility] Natural mother Diabetes [facility] Social History Social Habit Start Date Stop Date Quantity Comments Source Exposure to 2022-06-28 2022-07-08 Not sure University of SARS-CoV-2 00:00:00 09:34:[address] [facility] Branch Alcohol intake 2022-01-07 2022-01-[address] [facility] 00:00:00 00:00:00 non-drinker of alcohol (finding) Social History 2019-10-08 2019-10-08 [facility] 17:03:22 17:03:22 Tobacco use and 2018-05-09 2018-05-09 Smokeless tobacco [facility] exposure 00:00:00 00:00:00 non-user Sex Assigned At [address] [facility] 00:00:00 00:00:00 Smoking Status Start Date Stop Date Source Never smoked tobacco [facility] Medications Ordered Filled Start Stop Current Ordering Indication Dosage Frequency Signature Comments Components Source Medication Medication Date Date Medication? Clinician (SIG) Name Name losartan Yes 100mg QD Take 100 Meth redd potassium 6-[address] (LOSARTAN 10:41: mouth Hospita ORAL) 47 daily. l calcitrioL Yes .5ug QD Take 0.5 Met hodi (ROCALTROL) 6-[address] 0.5 MCG 10:41: mouth Hospita capsule 47 daily. l metOLazone Yes 5mg QD Take 5 mg Me thodi (ZAROXOLYN) 6-[address] 5 MG tablet 10:41: daily. Hosp kaye 47 l insulin NPH Yes 40U QD Inject 40 M ethodi human 6-[address] isophane 10:41: under the Hosp kaye (NOVOLIN N 47 skin l NPH U-100 nightly. INSULIN SUBQ) insulin NPH Yes 10U [id number] Inject Methodi (HumuLIN-N) 6-08 [id number] 10-12 s t 100 unit/mL 10:41: 3D Units Hospi ta injection 47 under the l skin 3 (three) times a day before meals. Per patient, he does not take Aspart insulin docusate 2021- No 100mg Q.5D Take 1 Metho di sodium 01-06-[address] (Colace) 00:00: 04:59 (100 mg Hospi ta 100 MG 00 :00 total) by l capsule mouth 2 (two) times a day for 7 days. acetaminoph 2021- [place] [id number] 1{tbl} Q6H Take 1 Methodi en-codeine 01-[address] (TYLENOL 00:00: 04:59 mouth Hospita WITH 00 :00 every 6 l CODEINE #3) (six) 300-30 mg hours as per tablet needed for moderate pain for up to 5 days .acute pain. insulin 2021- No 10U [id number] Inject M ethodi ASPART 01-[id number] 10-12 [address] (NovoLOG) 10:29: 00:00 3D Units Hospit a 100 unit/mL 53 :00 under the l injection skin 3 (three) times a day before meals. Sliding scale amlodipine 2021- No Take by Met laliti besylate 4-30 04-[address] (AMLODIPINE 14:12: 00:00 Hospi ta ORAL) 21 :00 l ergocalcife 2021- No [id number] Q7D Take Met hodi rol 08 06-07 50,000 [address] (VITAMIN 00:00: 00:00 Units by Hosp kaye D2) 50,000 00 :00 mouth once l unit a week. capsule dulaglutide Yes [id number] 1.5mg inject 1.5 Univers (TRULICITY) 2-21 mg under ity of 1.5 mg/0.5 00:00: the skin Igor as mL PnIj 00 weekly. Medical Branch Insulin NPH Yes [id number] 44 units Univers Human 2-21 AM and 40 ity of Recomb 00:00: units PM. Caitlyn (HUMULIN N 00 Max daily Medi south NPH INSULIN dose of Branc h KWIKPEN) 100 100 unit/mL (3 mL) injection Insulin Yes [id number] Use as Univ ers [place], 2-21 directed ity of Disposable, 00:00: twice Caitlyn (ADVOCATE 00 daily Medical PEN NEEDLE) E11.65 Branch 31 gauge x 3/16" Ndle dulaglutide Yes [id number] 1.5mg inject 1.5 Univers (TRULICITY) 2-21 mg under ity of 1.5 mg/0.5 00:00: the skin Igor as mL PnIj 00 weekly. Medical Branch Insulin NPH 2021-0 Yes [id number] 44 units Univers Human 2-21 AM and 40 ity of Recomb 00:00: units PM. [place] (HUMULIN N 00 Max daily Medi south NPH INSULIN dose of Branc h KWIKPEN) 100 100 unit/mL (3 mL) injection Insulin 2021-0 Yes [id number] Use as Univ ers [place], 2-21 directed ity of Disposable, 00:00: twice [place] (ADVOCATE 00 daily Medical PEN NEEDLE) E11.65 Branch 31 gauge x 3/16" Ndle dulaglutide 2021-0 Yes [id number] 1.5mg inject 1.5 Univers (TRULICITY) 2-21 mg under ity of 1.5 mg/0.5 00:00: the skin Igor as mL PnIj 00 weekly. Medical Branch Insulin NPH 2021-0 Yes [id number] 44 units Univers Human 2-21 AM and 40 ity of Recomb 00:00: units PM. [place] (HUMULIN N 00 Max daily Medi south NPH INSULIN dose of Branc h KWIKPEN) 100 100 unit/mL (3 mL) injection Insulin 2021-0 Yes [id number] Use as Univ ers [place], 2-21 directed ity of Disposable, 00:00: twice [place] (ADVOCATE 00 daily Medical PEN NEEDLE) E11.65 Branch 31 gauge x 3/16" Ndle dulaglutide 2021-0 Yes [id number] 1.5mg inject 1.5 Univers (TRULICITY) 2-21 mg under ity of 1.5 mg/0.5 00:00: the skin Igor as mL PnIj 00 weekly. Medical Branch Insulin NPH 2021-0 Yes [id number] 44 units Univers Human 2-21 AM and 40 ity of Recomb 00:00: units PM. [place] (HUMULIN N 00 Max daily Medi south NPH INSULIN dose of Branc h KWIKPEN) 100 100 unit/mL (3 mL) injection Insulin 2021-0 Yes [id number] Use as Univ ers [place], 2-21 directed ity of Disposable, 00:00: twice [place] (ADVOCATE 00 daily Medical PEN NEEDLE) E11.65 Branch 31 gauge x 3/16" Ndle dulaglutide 2021-0 Yes [id number] 1.5mg inject 1.5 Univers (TRULICITY) 2-21 mg under ity of 1.5 mg/0.5 00:00: the skin Igor as mL PnIj 00 weekly. Medical Branch Insulin NPH 2021-0 Yes [id number] 44 units Univers Human 2-21 AM and 40 ity of Recomb 00:00: units PM. [place] (HUMULIN N 00 Max daily Medi south NPH INSULIN dose of Branc h KWIKPEN) 100 100 unit/mL (3 mL) injection Insulin 0 Yes [id number] Use as Univ ers [place], 2-21 directed ity of Disposable, 00:00: twice [place] (ADVOCATE 00 daily Medical PEN NEEDLE) E11.65 Branch 31 gauge x 3/16" Ndle dulaglutide 2021-0 Yes [id number] 1.5mg inject 1.5 Univers (TRULICITY) 2-21 mg under ity of 1.5 mg/0.5 00:00: the skin Igor as mL PnIj 00 weekly. Medical Branch Insulin NPH 2021-0 Yes [id number] 44 units Univers Human 2-21 AM and 40 ity of Recomb 00:00: units PM. [place] (HUMULIN N 00 Max daily Medi south NPH INSULIN dose of Branc h KWIKPEN) 100 100 unit/mL (3 mL) injection Insulin 2021-0 Yes [id number] Use as Univ ers [place], 2-21 directed ity of Disposable, 00:00: twice [place] (ADVOCATE 00 daily Medical PEN NEEDLE) E11.65 Branch 31 gauge x 3/16" Ndle dulaglutide 2021-0 Yes [id number] 1.5mg inject 1.5 Univers (TRULICITY) 2-21 mg under ity of 1.5 mg/0.5 00:00: the skin Igor as mL PnIj 00 weekly. Medical Branch Insulin NPH 2021-0 Yes [id number] 44 units Univers Human 2-21 AM and 40 ity of Recomb 00:00: units PM. [place] (HUMULIN N 00 Max daily Medi south NPH INSULIN dose of Branc h KWIKPEN) 100 100 unit/mL (3 mL) injection Insulin 2021-0 Yes [id number] Use as Univ ers [place], 2-21 directed ity of Disposable, 00:00: twice [place] (ADVOCATE 00 daily Medical PEN NEEDLE) E11.65 Branch 31 gauge x 3/16" Ndle dulaglutide 2021-0 Yes [id number] 1.5mg inject 1.5 Univers (TRULICITY) 2-21 mg under ity of 1.5 mg/0.5 00:00: the skin Igor as mL PnIj 00 weekly. Medical Branch Insulin NPH 2021-0 Yes [id number] 44 units Univers Human 2-21 AM and 40 ity of Recomb 00:00: units PM. [place] (HUMULIN N 00 Max daily Medi suoth NPH INSULIN dose of Branc h KWIKPEN) 100 100 unit/mL (3 mL) injection Insulin 0 Yes [id number] Use as Univ ers [place], 2-21 directed ity of Disposable, 00:00: twice [place] (ADVOCATE 00 daily Medical PEN NEEDLE) E11.65 Branch 31 gauge x 3/16" Ndle dulaglutide 0 Yes [id number] 1.5mg inject 1.5 Univers (TRULICITY) 2-21 mg under ity of 1.5 mg/0.5 00:00: the skin Igor as mL PnIj 00 weekly. Medical Branch Insulin NPH 2021-0 Yes [id number] 44 units Univers Human 2-21 AM and 40 ity of Recomb 00:00: units PM. [place] (HUMULIN N 00 Max daily Medi south NPH INSULIN dose of Branc h KWIKPEN) 100 100 unit/mL (3 mL) injection Insulin 2021-0 Yes [id number] Use as Univ ers [place], 2-21 directed ity of Disposable, 00:00: twice [place] (ADVOCATE 00 daily Medical PEN NEEDLE) E11.65 Branch 31 gauge x 3/16" Ndle dulaglutide 2021-0 Yes [id number] 1.5mg inject 1.5 Univers (TRULICITY) 2-21 mg under ity of 1.5 mg/0.5 00:00: the skin Igor as mL PnIj 00 weekly. Medical Branch Insulin NPH 2021-0 Yes [id number] 44 units Univers Human 2-21 AM and 40 ity of Recomb 00:00: units PM. [place] (HUMULIN N 00 Max daily Medi south NPH INSULIN dose of Branc h KWIKPEN) 100 100 unit/mL (3 mL) injection Insulin 2021-0 Yes [id number] Use as Univ ers [place], 2-21 directed ity of Disposable, 00:00: twice [place] (ADVOCATE 00 daily Medical PEN NEEDLE) E11.65 Branch 31 gauge x 3/16" Ndle dulaglutide 2021-0 Yes [id number] 1.5mg inject 1.5 Univers (TRULICITY) 2-21 mg under ity of 1.5 mg/0.5 00:00: the skin Igor as mL PnIj 00 weekly. Medical Branch Insulin NPH 2021-0 Yes [id number] 44 units Univers Human 2-21 AM and 40 ity of Recomb 00:00: units PM. [place] (HUMULIN N 00 Max daily Medi south NPH INSULIN dose of Branc h KWIKPEN) 100 100 unit/mL (3 mL) injection Insulin 0 Yes [id number] Use as Univ ers [place], 2-21 directed ity of Disposable, 00:00: twice [place] (ADVOCATE 00 daily Medical PEN NEEDLE) E11.65 Branch 31 gauge x 3/16" Ndle dulaglutide 0 Yes [id number] 1.5mg inject 1.5 Univers (TRULICITY) 2-21 mg under ity of 1.5 mg/0.5 00:00: the skin Igor as mL PnIj 00 weekly. Medical Branch Insulin NPH 2021-0 Yes [id number] 44 units Univers Human 2-21 AM and 40 ity of Recomb 00:00: units PM. [place] (HUMULIN N 00 Max daily Medi south NPH INSULIN dose of Branc h KWIKPEN) 100 100 unit/mL (3 mL) injection Insulin 2021-0 Yes [id number] Use as Univ ers [place], 2-21 directed ity of Disposable, 00:00: twice [place] (ADVOCATE 00 daily Medical PEN NEEDLE) E11.65 Branch 31 gauge x 3/16" Ndle dulaglutide 0 Yes [id number] 1.5mg inject 1.5 Univers (TRULICITY) 2-21 mg under ity of 1.5 mg/0.5 00:00: the skin Igor as mL PnIj 00 weekly. Medical Branch Insulin NPH 2021-0 Yes [id number] 44 units Univers Human 2-21 AM and 40 ity of Recomb 00:00: units PM. [place] (HUMULIN N 00 Max daily Medi south NPH INSULIN dose of Branc h KWIKPEN) 100 100 unit/mL (3 mL) injection Insulin 2021-0 Yes [id number] Use as Univ ers [place], 2-21 directed ity of Disposable, 00:00: twice [place] (ADVOCATE 00 daily Medical PEN NEEDLE) E11.65 Branch 31 gauge x 3/16" Ndle dulaglutide 0 Yes [id number] 1.5mg inject 1.5 Univers (TRULICITY) 2-21 mg under ity of 1.5 mg/0.5 00:00: the skin Igor as mL PnIj 00 weekly. Medical Branch Insulin NPH 2021-0 Yes [id number] 44 units Univers Human 2-21 AM and 40 ity of Recomb 00:00: units PM. [place] (HUMULIN N 00 Max daily Medi south NPH INSULIN dose of Branc h KWIKPEN) 100 100 unit/mL (3 mL) injection Insulin 2021-0 Yes [id number] Use as Univ ers [place], 2-21 directed ity of Disposable, 00:00: twice [place] (ADVOCATE 00 daily Medical PEN NEEDLE) E11.65 Branch 31 gauge x 3/16" Ndle dulaglutide 0 Yes [id number] 1.5mg inject 1.5 Univers (TRULICITY) 2-21 mg under ity of 1.5 mg/0.5 00:00: the skin Igor as mL PnIj 00 weekly. Medical Branch Insulin NPH 2021-0 Yes [id number] 44 units Univers Human 2-21 AM and 40 ity of Recomb 00:00: units PM. [place] (HUMULIN N 00 Max daily Medi south NPH INSULIN dose of Branc h KWIKPEN) 100 100 unit/mL (3 mL) injection Insulin 2021-0 Yes [id number] Use as Univ ers [place], 2-21 directed ity of Disposable, 00:00: twice [place] (ADVOCATE 00 daily Medical PEN NEEDLE) E11.65 Branch 31 gauge x 3/16" Ndle dulaglutide 2021-0 Yes [id number] 1.5mg inject 1.5 Univers (TRULICITY) 2-21 mg under ity of 1.5 mg/0.5 00:00: the skin Igor as mL PnIj 00 weekly. Medical Branch Insulin NPH 2021-0 Yes [id number] 44 units Univers Human 2-21 AM and 40 ity of Recomb 00:00: units PM. [place] (HUMULIN N 00 Max daily Medi south NPH INSULIN dose of Branc h KWIKPEN) 100 100 unit/mL (3 mL) injection Insulin 2021-0 Yes [id number] Use as Univ ers [place], 2-21 directed ity of Disposable, 00:00: twice [place] (ADVOCATE 00 daily Medical PEN NEEDLE) E11.65 Branch 31 gauge x 3/16" Ndle Calcitriol 2020-0 Yes UllaBritt not Me moria 8-18 Larka defined l 02:08: Marlon 43 Metolazone 2020-0 Yes UllaBritt not Me moria 8-18 [place] defined l 02:08: [place] 43 Novolin 0 Yes UllaBritt not Memor ia /30 03-18 [place] defined l 02:08: [place] 43 Losartan 0 Yes UllaBritt not Andre erasmo Potassium 8-18 [place] defined l 02:08: [place] 43 Vitamin D2 0 Yes UllaBritt not Me moria 8-18 [place] defined l 02:08: [place] 43 Furosemide 0 Yes UllaBritt not Me moria 8-18 [place] defined l 02:08: [place] 43 Diabetic 0 Yes UllaBritt as Andre erasmo Shoes & 03-18 [place] directed l Custom 02:08: [place] Insolelodia 43 Calcitriol 2020-0 Yes UllaBritt not Me moria 8-18 [place] defined l 02:08: [place] 43 Metolazone 0 Yes UllaBritt not Me moria 8-18 [place] defined l 02:08: [place] 43 Novolin 2020-0 Yes UllaBritt not Memor ia 30 03-18 [place] defined l 02:08: [place] 43 Losartan 0 Yes UllaBritt not Andre erasmo Potassium 8-18 [place] defined l 02:08: Marlon 43 Vitamin D2 2020-0 Yes UllaBritt not Me moria 8- Larka defined l 02:08: [place] 43 Furosemide 2020-0 Yes UllaBritt not Me moria 8-18 [place] defined l 02:08: [place] 43 Diabetic 0 Yes UllaBritt as Andre erasmo Shoes & 8-18 [place] directed l Custom 02:08: [place] Insoles 43 Calcitriol 2020-0 Yes UllaBritt not Me moria 8-18 [place] defined l 02:08: [place] 43 Metolazone 2020-0 Yes UllaBritt not Me moria 8-18 [place] defined l 02:08: [place] 43 Novolin 2020-0 Yes UllaBritt not Memor ia 70/30 8-18 [place] defined l 02:08: [place] 43 Losartan 0 Yes UllaBritt not Andre erasmo Potassium 8-18 [place] defined l 02:08: 43 Vitamin D2 0 Yes UllaBritt not Me moria 8-18 [place] defined l 02:08: [place] 43 Furosemide 0 Yes UllaBritt not Me moria 8-18 [place] defined l 02:08: Marlon 43 Diabetic 0 Yes UllaBritt as Andre erasmo Shoes & 8-18 [place] directed l Custom 02:08: [place] Insoles 43 Lamisil Yes UllaBritt 1 tablet M emoria 5-11 Larka l 00:00: Marlon 00 Lamisil Yes UllaBritt 1 tablet M emoria 5-11 Larka l 00:00: 00 Lamisil Yes UllaBritt 1 tablet M emoria 5-11 Larka l 00:00: [place] 00 Diabetic 0 Yes UllaBritt as Andre erasmo Shoes & 2-05 [place] directed l Custom 00:00: [place] Insoles 00 Diabetic 0 Yes UllaBritt as Andre erasmo Shoes & 2-05 [place] directed l Custom 00:00: Marlon Insoles 00 Diabetic 0 Yes UllaBritt as Andre erasmo Shoes & 2-05 [place] directed l Custom 00:00: [place] Insoles 00 Diabetic 0 Yes UllaBritt as Andre erasmo Shoes & 1-05 [place] directed l Custom 00:00: [place] Insoles 00 Terbinafine 0 Yes UllaBritt 1 tablet Memoria HCl 1-05 Larka l 00:00: [place] 00 Diabetic 0 Yes UllaBritt as Andre erasmo Shoes & 1-05 [place] directed l Custom 00:00: [place] Insoles 00 Terbinafine 0 Yes UllaBritt 1 tablet Memoria HCl 1-05 Larka l 00:00: [place] 00 Diabetic 0 Yes UllaBritt as Andre erasmo Shoes & 1-05 [place] directed l Custom 00:00: [place] Insoles 00 Terbinafine Yes UllaBritt 1 tablet Memoria HCl 08-05 Larka l 00:00: [place] ergocalcife Yes Vitamin D2 Univers rol, 1-04 1,250 mcg ity of vitamin d2, 12:28: (50,000 Igor as 1,250 mcg 53 unit) Medical (50,000 capsule Branch unit) capsule ergocalcife Yes Vitamin D2 Univers rol, 1-04 1,250 mcg ity of vitamin d2, 12:28: (50,000 Igor as 1,250 mcg 53 unit) Medical (50,000 capsule Branch unit) capsule ergocalcife Yes Vitamin D2 Univers rol, 1-04 1,250 mcg ity of vitamin d2, 12:28: (50,000 Igor as 1,250 mcg 53 unit) Medical (50,000 capsule Branch unit) capsule ergocalcife Yes Vitamin D2 Univers rol, 1-04 1,250 mcg ity of vitamin d2, 12:28: (50,000 Igor as 1,250 mcg 53 unit) Medical (50,000 capsule Branch unit) capsule ergocalcife Yes Vitamin D2 Univers rol, 1-04 1,250 mcg ity of vitamin d2, 12:28: (50,000 Igor as 1,250 mcg 53 unit) Medical (50,000 capsule Branch unit) capsule ergocalcife Yes Vitamin D2 Univers rol, 1-04 1,250 mcg ity of vitamin d2, 12:28: (50,000 Igor as 1,250 mcg 53 unit) Medical (50,000 capsule Branch unit) capsule ergocalcife Yes Vitamin D2 Univers rol, 1-04 1,250 mcg ity of vitamin d2, 12:28: (50,000 Igor as 1,250 mcg 53 unit) Medical (50,000 capsule Branch unit) capsule ergocalcife 0 Yes Vitamin D2 Univers rol, 1-04 1,250 mcg ity of vitamin d2, 12:28: (50,000 Igor as 1,250 mcg 53 unit) Medical (50,000 capsule Branch unit) capsule ergocalcife Yes Vitamin D2 Univers rol, 1-04 1,250 mcg ity of vitamin d2, 12:28: (50,000 Igor as 1,250 mcg 53 unit) Medical (50,000 capsule Branch unit) capsule ergocalcife Yes Vitamin D2 [facility], 1-04 1,250 mcg ity of vitamin d2, 12:28: (50,000 [place] as 1,250 mcg 53 unit) Medical (50,000 capsule Branch unit) capsule ergocalcife Yes Vitamin D2 [facility] rol, -04 1,250 mcg ity of vitamin d2, 12:28: (50,000 [facility] as 1,250 mcg 53 unit) Medical (50,000 capsule Branch unit) capsule ergocalcife Yes Vitamin D2 [facility] rol, -04 1,250 mcg ity of vitamin d2, 12:28: (50,000 [place] as 1,250 mcg 53 unit) Medical (50,000 capsule Branch unit) capsule ergocalcife Yes Vitamin D2 [facility] rol, - 1,250 mcg ity of vitamin d2, 12:28: (50,000 [facility] as 1,250 mcg 53 unit) Medical (50,000 capsule Branch unit) capsule ergocalcife Yes Vitamin D2 [facility] rol, -04 1,250 mcg ity of vitamin d2, 12:28: (50,000 [place] as 1,250 mcg 53 unit) Medical (50,000 capsule Branch unit) capsule ergocalcife Yes Vitamin D2 [facility] rol, -04 1,250 mcg ity of vitamin d2, 12:28: (50,000 [place] as 1,250 mcg 53 unit) Medical (50,000 capsule Branch unit) capsule ergocalcife Yes Vitamin D2 [facility] rol, -04 1,250 mcg ity of vitamin d2, 12:28: (50,000 [place] as 1,250 mcg 53 unit) Medical (50,000 capsule Branch unit) capsule metOLazone 2019- Yes TAKE 1 [facility] rs 5 mg tablet 2-08 TABLET BY ity of 00:00: MOUTH ONCE DAILY 30 Medical MINUTES Branch BEFORE THE MORNING DOSE OF LASIX metOLazone 2019- Yes TAKE 1 [facility] rs 5 mg tablet 2-08 TABLET BY ity of 00:00: MOUTH ONCE DAILY 30 Medical MINUTES Branch BEFORE THE MORNING DOSE OF LASIX metOLazone 2019- Yes TAKE 1 [facility] rs 5 mg tablet 2-08 TABLET BY ity of 00:00: MOUTH ONCE [place] 00 DAILY 30 Medical MINUTES Branch BEFORE THE MORNING DOSE OF LASIX metOLazone 2020- Yes TAKE 1 [facility] rs 5 mg tablet 2-08 TABLET BY ity of 00:00: MOUTH ONCE [place] 00 DAILY 30 Medical MINUTES Branch BEFORE THE MORNING DOSE OF LASIX metOLazone 2020- Yes TAKE 1 [facility] rs 5 mg tablet 2-08 TABLET BY ity of 00:00: MOUTH ONCE [place] 00 DAILY 30 Medical MINUTES Branch BEFORE THE MORNING DOSE OF LASIX metOLazone 2019- Yes TAKE 1 [facility] rs 5 mg tablet 2-08 TABLET BY ity of 00:00: MOUTH ONCE [place] 00 DAILY 30 Medical MINUTES Branch BEFORE THE MORNING DOSE OF LASIX metOLazone 2019- Yes TAKE 1 [facility] rs 5 mg tablet 2-08 TABLET BY ity of 00:00: MOUTH ONCE [place] DAILY 30 Medical MINUTES Branch BEFORE THE MORNING DOSE OF LASIX metOLazone 2019- Yes TAKE 1 [facility] rs 5 mg tablet 2-08 TABLET BY ity of 00:00: MOUTH ONCE [place] 00 DAILY 30 Medical MINUTES Branch BEFORE THE MORNING DOSE OF LASIX metOLazone 2020- Yes TAKE 1 [facility] rs 5 mg tablet 2-08 TABLET BY ity of 00:00: MOUTH ONCE 00 DAILY 30 Medical MINUTES Branch BEFORE THE MORNING DOSE OF LASIX metOLazone 2020- Yes TAKE 1 [facility] rs 5 mg tablet 2-08 TABLET BY ity of 00:00: MOUTH ONCE DAILY 30 Medical MINUTES Branch BEFORE THE MORNING DOSE OF LASIX metOLazone 2020- Yes TAKE 1 [facility] rs 5 mg tablet 2-08 TABLET BY ity of 00:00: MOUTH ONCE [place] DAILY 30 Medical MINUTES Branch BEFORE THE MORNING DOSE OF LASIX metOLazone 2020- Yes TAKE 1 [facility] rs 5 mg tablet 2-08 TABLET BY ity of 00:00: MOUTH ONCE [place] 00 DAILY 30 Medical MINUTES Branch BEFORE THE MORNING DOSE OF LASIX metOLazone 2020- Yes TAKE 1 [facility] rs 5 mg tablet 2-08 TABLET BY ity of 00:00: MOUTH ONCE [place] 00 DAILY 30 Medical MINUTES Branch BEFORE THE MORNING DOSE OF LASIX metOLazone 2020- Yes TAKE 1 [facility] rs 5 mg tablet 2-08 TABLET BY ity of 00:00: MOUTH ONCE [place] 00 DAILY 30 Medical MINUTES Branch BEFORE THE MORNING DOSE OF LASIX metOLazone 2019-08 Yes TAKE 1 [facility] rs 5 mg tablet 2-08 TABLET BY ity of 00:00: MOUTH ONCE [place] 00 DAILY 30 Medical MINUTES Branch BEFORE THE MORNING DOSE OF LASIX metOLazone 2019-08 Yes TAKE 1 [facility] rs 5 mg tablet 2-08 TABLET BY ity of 00:00: MOUTH ONCE [place] 00 DAILY 30 Medical MINUTES Branch BEFORE THE MORNING DOSE OF LASIX Lamisil 2019-08 Yes UllaBritt 1 tablet M [facility] 2-02 [place] l 00:00: Lamisil 2019-08 Yes UllaBritt 1 tablet M [facility] 2-02 [place] [facility] 00:00: Lamisil 2019-08 Yes [facility] [place] [facility] 00:00: losartan 2019- Yes 100mg Take 100 [facility] 100 mg 1-10 mg by ity of tablet 00:00: mouth [place] 00 daily. Medical Branch losartan 2019-08 Yes 100mg Take 100 [facility] 100 mg 1-10 mg by ity of tablet 00:00: mouth [place] 00 daily. Medical Branch losartan 2019-08 Yes 100mg Take 100 [facility] 100 mg 1-10 mg by ity of tablet 00:00: mouth [place] 00 daily. Medical Branch losartan 2019-08 Yes 100mg Take 100 [facility] 100 mg 1-10 mg by ity of tablet 00:00: mouth [place] 00 daily. Medical Branch losartan 2019- Yes 100mg Take 100 [facility] 100 mg 1-10 mg by ity of tablet 00:00: mouth [place] 00 daily. Medical Branch losartan 2019- Yes 100mg Take 100 [facility] 100 mg 1-10 mg by ity of tablet 00:00: mouth [place] 00 daily. Medical Branch losartan 2019- Yes 100mg Take 100 [facility] 100 mg 1-10 mg by ity of tablet 00:00: mouth [place] 00 daily. Medical Branch losartan 2019- Yes 100mg Take 100 [facility] 100 mg 1-10 mg by ity of tablet 00:00: mouth [place] 00 daily. Medical Branch losartan 2019- Yes 100mg Take 100 [facility] 100 mg 1-10 mg by ity of tablet 00:00: mouth [place] 00 daily. Medical Branch losartan 2019- Yes 100mg Take 100 [facility] 100 mg 1-10 mg by ity of tablet 00:00: mouth [place] 00 daily. Medical Branch losartan 2020-1 Yes 100mg Take 100 [facility] 100 mg 1-10 mg by ity of tablet 00:00: mouth [place] 00 daily. Medical Branch losartan 2020-1 Yes 100mg Take 100 [facility] 100 mg 1-10 mg by ity of tablet 00:00: mouth [place] 00 daily. Medical Branch losartan 2020-1 Yes 100mg Take 100 [facility] 100 mg 1-10 mg by ity of tablet 00:00: mouth [place] 00 daily. Medical Branch losartan 2020-1 Yes 100mg Take 100 [facility] 100 mg 1-10 mg by ity of tablet 00:00: mouth [place] 00 daily. Medical Branch losartan 2020-1 Yes 100mg Take 100 [facility] 100 mg 1-10 mg by ity of tablet 00:00: mouth [place] 00 daily. Medical Branch losartan 2019-1 Yes 100mg Take 100 [facility] 100 mg 1-10 mg by ity of tablet 00:00: mouth [place] 00 daily. Medical Branch Silvadene 2020-1 Yes UllaBritt 1 [facility] 1-03 [place] applicatio l 00:00: n to affected area Silvadene 2020-1 Yes UllaBritt 1 [facility] 1-03 [place] applicatio l 00:00: n to [place] 00 affected area Silvadene 2020-1 Yes UllaBritt 1 [facility] 1-03 [place] applicatio l 00:00: n to affected area Clindamycin 2020-1 Yes UllaBritt 1 capsule [facility] 0-19 [place] l 00:00: [place] 00 Clindamycin 2020-1 Yes UllaBritt 1 capsule [facility] 0-19 [place] l 00:00: [place] 00 Clindamycin 2020-1 Yes UllaBritt 1 capsule [facility] 0-19 [place] l 00:00: [place] 00 Diabetic 2020-1 Yes UllaBritt as Andre er[employer] & 0-06 [place] directed l Custom 00:00: [place] Insoles Diabetic 2020-1 Yes UllaBritt as [employer] & 0-06 [place] directed l Custom 00:00: [place] Insoles Diabetic 2020-1 Yes UllaBritt as [employer] & 0-06 [place] directed l Custom 00:00: [place] Insoles 00 Silvadene 2020-1 Yes UllaBritt 1 [facility] 0-05 [place] applicatio l 00:00: n to [place] 00 affected area Silvadene 2020-1 Yes UllaBritt 1 [facility] 0-05 [place] applicatio l 00:00: n to [place] 00 affected area Silvadene 2020-1 Yes UllaBritt 1 [facility] 0-05 [place] applicatio l 00:00: n to [place] 00 affected area metoprolol 2020-0 Yes [id number] 12.5mg Take 0.5 [facility] succinate 7-23 tablets by ity of XL 25 mg 24 00:00: mouth [place] hr tablet 00 daily. Medical Branch metoprolol 2020-0 Yes [id number] 12.5mg Take 0.5 [facility] succinate 7-23 tablets by ity of XL 25 mg 24 00:00: mouth [place] hr tablet 00 daily. Medical Branch metoprolol 2020-0 Yes [id number] 12.5mg Take 0.5 [facility] succinate 7-23 tablets by ity of XL 25 mg 24 00:00: mouth [place] hr tablet 00 daily. Medical Branch metoprolol 2020-0 Yes [id number] 12.5mg Take 0.5 [facility] succinate 7-23 tablets by ity of XL 25 mg 24 00:00: mouth [place] hr tablet 00 daily. Medical Branch metoprolol 2020-0 Yes [id number] 12.5mg Take 0.5 [facility] succinate 7-23 tablets by ity of XL 25 mg 24 00:00: mouth [place] hr tablet 00 daily. Medical Branch metoprolol 2020-0 Yes [id number] 12.5mg Take 0.5 [facility] succinate 7-23 tablets by ity of XL 25 mg 24 00:00: mouth [place] hr tablet 00 daily. Medical Branch metoprolol 2020-0 Yes [id number] 12.5mg Take 0.5 [facility] succinate 7-23 tablets by ity of XL 25 mg 24 00:00: mouth [place] hr tablet 00 daily. Medical Branch metoprolol 2020-0 Yes [id number] 12.5mg Take 0.5 [facility] succinate 7-23 tablets by ity of XL 25 mg 24 00:00: mouth [place] hr tablet 00 daily. Medical Branch metoprolol 2020-0 Yes [id number] 12.5mg Take 0.5 [facility] succinate 7-23 tablets by ity of XL 25 mg 24 00:00: mouth [place] hr tablet 00 daily. Medical Branch metoprolol 2020-0 Yes [id number] 12.5mg Take 0.5 [facility] succinate 7-23 tablets by ity of XL 25 mg 24 00:00: mouth [place] hr tablet 00 daily. Medical Branch metoprolol 2020-0 Yes [id number] 12.5mg Take 0.5 [facility] succinate 7-23 tablets by ity of XL 25 mg 24 00:00: mouth [place] hr tablet 00 daily. Medical Branch metoprolol 2020-0 Yes [id number] 12.5mg Take 0.5 [facility] succinate 7-23 tablets by ity of XL 25 mg 24 00:00: mouth [place] hr tablet 00 daily. Medical Branch metoprolol 2020-0 Yes [id number] 12.5mg Take 0.5 [facility] succinate 7-23 tablets by ity of XL 25 mg 24 00:00: mouth [place] hr tablet 00 daily. Medical Branch metoprolol 2020-0 Yes [id number] 12.5mg Take 0.5 [facility] succinate 7-23 tablets by ity of XL 25 mg 24 00:00: mouth [place] hr tablet 00 daily. Medical Branch metoprolol 2020-0 Yes [id number] 12.5mg Take 0.5 [facility] succinate 7-23 tablets by ity of XL 25 mg 24 00:00: mouth [place] hr tablet 00 daily. Medical Branch metoprolol 2020-0 Yes [id number] 12.5mg Take 0.5 [facility] succinate 7-23 tablets by ity of XL 25 mg 24 00:00: mouth [place] hr tablet 00 daily. Medical Branch atorvastati 2020-0 Yes [id number] 40mg Take 1 [facility] n 40 mg 7-22 tablet by ity of tablet 00:00: mouth at [place] 00 bedtime. Medical Branch atorvastati 2020-0 Yes [id number] 40mg Take 1 [facility] n 40 mg 7-22 tablet by ity of tablet 00:00: mouth at [place] 00 bedtime. Medical Branch atorvastati 2020-0 Yes [id number] 40mg Take 1 [facility] n 40 mg 7-22 tablet by ity of tablet 00:00: mouth at [place] 00 bedtime. Medical Branch atorvastati 2020-0 Yes [id number] 40mg Take 1 [facility] n 40 mg 7-22 tablet by ity of tablet 00:00: mouth at [place] 00 bedtime. Medical Branch atorvastati 2020-0 Yes [id number] 40mg Take 1 [facility] n 40 mg 7-22 tablet by ity of tablet 00:00: mouth at [place] 00 bedtime. Medical Branch atorvastati 2019-0 Yes [id number] 40mg Take 1 [facility] n 40 mg 7-22 tablet by ity of tablet 00:00: mouth at [place] bedtime. Medical Branch atorvastati 2019-0 Yes [id number] 40mg Take 1 [facility] n 40 mg 7-22 tablet by ity of tablet 00:00: mouth at [place] bedtime. Medical Branch atorvastati 2019-0 Yes [id number] 40mg Take 1 [facility] n 40 mg 7-22 tablet by ity of tablet 00:00: mouth at [place] bedtime. Medical Branch atorvastati Yes [id number] 40mg Take 1 [facility] n 40 mg 7-22 tablet by ity of tablet 00:00: mouth at [place] bedtime. Medical Branch atorvastati 2019- Yes [id number] 40mg Take 1 [facility] n 40 mg 7-22 tablet by ity of tablet 00:00: mouth at [place] bedtime. Medical Branch atorvastati 0 Yes [id number] 40mg Take 1 [facility] n 40 mg 7-22 tablet by ity of tablet 00:00: mouth at [place] bedtime. Medical Branch atorvastati 0 Yes [id number] 40mg Take 1 [facility] n 40 mg 7-22 tablet by ity of tablet 00:00: mouth at [place] bedtime. Medical Branch atorvastati 2019-0 Yes [id number] 40mg Take 1 [facility] n 40 mg 7-22 tablet by ity of tablet 00:00: mouth at [place] bedtime. Medical Branch atorvastati 2019-0 Yes [id number] 40mg Take 1 [facility] n 40 mg 7-22 tablet by ity of tablet 00:00: mouth at [place] bedtime. Medical Branch atorvastati 2019-0 Yes [id number] 40mg Take 1 [facility] n 40 mg 7-22 tablet by ity of tablet 00:00: mouth at [place] bedtime. Medical Branch atorvastati 2019-0 Yes [id number] 40mg Take 1 [facility] n 40 mg 7-22 tablet by ity of tablet 00:00: mouth at [place] [address] bedtime. Medical Branch calcium Yes 1,000 mg = Meth redd carbonate 4-15 1 tab, st 400 mg 00:00: CHEW, [facility]osp[facility] calcium 00 TID-Meals, l (1,000 mg) 0 tablet,chew Refill(s) able gabapentin 2019-0 Yes [id number] 100mg Take 1 [facility] 100 mg 3-26 capsule by ity of capsule 00:00: mouth [place] 00 daily. [facility] Branch gabapentin 2019-0 Yes [id number] 100mg Take 1 [facility] 100 mg 3-26 capsule by ity of capsule 00:00: mouth [place] 00 daily. Medical Branch gabapentin 2019-0 Yes [id number] 100mg Take 1 [facility] 100 mg 3-26 capsule by ity of capsule 00:00: mouth [place] 00 daily. Medical Branch gabapentin 2019-0 Yes [id number] 100mg Take 1 [facility] 100 mg 3-26 capsule by ity of capsule 00:00: mouth [place] 00 daily. Medical Branch gabapentin 2019-0 Yes [id number] 100mg Take 1 [facility] 100 mg 3-26 capsule by ity of capsule 00:00: mouth [place] 00 daily. Medical Branch gabapentin 2019-0 Yes [id number] 100mg Take 1 [facility] 100 mg 3-26 capsule by ity of capsule 00:00: mouth [place] 00 daily. Medical Branch gabapentin 2019-0 Yes [id number] 100mg Take 1 [facility] 100 mg 3-26 capsule by ity of capsule 00:00: mouth [place] 00 daily. Medical Branch gabapentin 2019-0 Yes [id number] 100mg Take 1 [facility] 100 mg 3-26 capsule by ity of capsule 00:00: mouth [place] 00 daily. Medical Branch gabapentin 2019-0 Yes [id number] 100mg Take 1 [facility] 100 mg 3-26 capsule by ity of capsule 00:00: mouth [place] 00 daily. Medical Branch gabapentin 2019-0 Yes [id number] 100mg Take 1 [facility] 100 mg 3-26 capsule by ity of capsule 00:00: mouth [place] 00 daily. Medical Branch gabapentin 2019-0 Yes [id number] 100mg Take 1 [facility] 100 mg 3-26 capsule by ity of capsule 00:00: mouth [place] 00 daily. Medical Branch gabapentin 2019-0 Yes [id number] 100mg Take 1 [facility] 100 mg 3-26 capsule by ity of capsule 00:00: mouth [place] 00 daily. Medical Branch gabapentin 2019-0 Yes [id number] 100mg Take 1 [facility] 100 mg 3-26 capsule by ity of capsule 00:00: mouth [place] 00 daily. Medical Branch gabapentin Yes [id number] 100mg Take 1 [facility] 100 mg 3-26 capsule by ity of capsule 00:00: mouth [place] 00 daily. [facility] Branch gabapentin Yes [id number] 100mg Take 1 [facility] 100 mg 3-26 capsule by ity of capsule 00:00: mouth [place] 00 daily. Medical Branch gabapentin Yes [id number] 100mg Take 1 [facility] 100 mg 3-26 capsule by ity of capsule 00:00: mouth [place] 00 daily. [facility] Branch losartan Yes Take by [facility] i potassium 2-[address] (LOSARTAN 15:07: [facility]osp[facility] ORAL) 51 l amlodipine Yes Take by Meth redd besylate 2-[address] (AMLODIPINE 15:07: Hospit a ORAL) 51 l insulin Yes 10U [id number] Inject Me thodi ASPART 08 [id number] 10-12 st (NovoLOG) 15:07: 3D Units [facility] 100 unit/mL 51 under the l injection skin 3 (three) times a day before meals. Sliding scale doxazosin 2 2016-08 Yes 2mg Take 1 [facility] ers mg tablet 1-30 tablet by ity o f 00:00: mouth 2 [place] 00 (two) Medical times Branch daily. amLODIPine 2016-08 Yes [id number] 10mg Take 1 [facility] nivers 10 mg 1-30 tablet by ity of tablet 00:00: mouth [place] 00 daily. Medical Branch Ferrous 2016-08 Yes [id number] 325mg Take 1 Un gasper Fumarate 1-30 tablet by ity of 325 mg (106 00:00: mouth 3 [place] [facility] mg iron) 00 (three) Medical tablet times Branch daily with meals. guaiFENesin 2016-08 Yes 100mg Take 5 mL [facility] 100 mg/5 mL 1-30 by mouth ity of solution 00:00: every 4 [place] 00 (four) Medical hours. Branch docusate 2016-08 Yes 100mg Take 1 Un[facility] s 100 mg 1-30 capsule by ity of capsule 00:00: mouth [place] 00 daily. Medical Branch sennosides 2016-08 Yes 8.6mg Take 1 [facility] ers 8.6 mg 1-30 tablet by ity of tablet 00:00: mouth [place] 00 daily. Medical Branch calcitriol 2016-08 Yes .25ug Take 1 [facility] ers 0.25 mcg 1-30 capsule by ity o f capsule 00:00: mouth [place] 00 daily. Medical Branch doxazosin 2 2016-08 Yes 2mg Take 1 [facility] ers mg tablet 1-30 tablet by ity o f 00:00: mouth 2 [place] 00 (two) Medical times Branch daily. amLODIPine 2016-08 Yes [id number] 10mg Take 1 [facility] nivers 10 mg 1-30 tablet by ity of tablet 00:00: mouth [place] 00 daily. Medical Branch Ferrous 2016-08 Yes [id number] 325mg Take 1 Un gasper Fumarate 1-30 tablet by ity of 325 mg (106 00:00: mouth 3 [place] [facility] mg iron) 00 (three) Medical tablet times Branch daily with meals. guaiFENesin 2016-08 Yes 100mg Take 5 mL [facility] 100 mg/5 mL 1-30 by mouth ity of solution 00:00: every 4 [place] 00 (four) Medical hours. Branch docusate 2016-08 Yes 100mg Take 1 [facility] s 100 mg 1-30 capsule by ity of capsule 00:00: mouth [place] 00 daily. Medical Branch sennosides 2016-08 Yes 8.6mg Take 1 [facility] ers 8.6 mg 1-30 tablet by ity of tablet 00:00: mouth [place] 00 daily. Medical Branch calcitriol 2016-08 Yes .25ug Take 1 [facility] ers 0.25 mcg 1-30 capsule by ity o f capsule 00:00: mouth [place] 00 daily. Medical Branch doxazosin 2 2016-08 Yes 2mg Take 1 [facility] ers mg tablet 1-30 tablet by ity o f 00:00: mouth 2 [place] 00 (two) Medical times Branch daily. amLODIPine 2016-08 Yes [id number] 10mg Take 1 [facility] nivers 10 mg 1-30 tablet by ity of tablet 00:00: mouth [place] 00 daily. Medical Branch Ferrous 2016-08 Yes [id number] 325mg Take 1 Un gasper Fumarate 1-30 tablet by ity of 325 mg (106 00:00: mouth 3 [place] [facility] mg iron) 00 (three) Medical tablet times Branch daily with meals. guaiFENesin 2016-08 Yes 100mg Take 5 mL [facility] 100 mg/5 mL 1-30 by mouth ity of solution 00:00: every 4 [place] 00 (four) Medical hours. Branch docusate 2016-08 Yes 100mg Take 1 [facility] s 100 mg 1-30 capsule by ity of capsule 00:00: mouth [place] 00 daily. Medical Branch sennosides 2016-08 Yes 8.6mg Take 1 [facility] ers 8.6 mg 1-30 tablet by ity of tablet 00:00: mouth [place] 00 daily. Medical Branch calcitriol 2016-08 Yes .25ug Take 1 [facility] ers 0.25 mcg 1-30 capsule by ity o f capsule 00:00: mouth [place] 00 daily. Medical Branch doxazosin 2 2016-08 Yes 2mg Take 1 [facility] ers mg tablet 1-30 tablet by ity o f 00:00: mouth 2 [place] 00 (two) Medical times Branch daily. amLODIPine 2016-08 Yes [id number] 10mg Take 1 [facility] nivers 10 mg 1-30 tablet by ity of tablet 00:00: mouth [place] 00 daily. Medical Branch Ferrous 2016-08 Yes [id number] 325mg Take 1 Un gasper Fumarate 1-30 tablet by ity of 325 mg (106 00:00: mouth 3 [place] mg iron) 00 (three) Medical tablet times Branch daily with meals. guaiFENesin 2016-08 Yes 100mg Take 5 mL [facility] 100 mg/5 mL 1-30 by mouth ity of solution 00:00: every 4 [place] 00 (four) Medical hours. Branch docusate 2016-08 Yes 100mg Take 1 [facility] s 100 mg 1-30 capsule by ity of capsule 00:00: mouth [place] 00 daily. Medical Branch sennosides 2016-08 Yes 8.6mg Take 1 [facility] ers 8.6 mg 1-30 tablet by ity of tablet 00:00: mouth [place] 00 daily. Medical Branch calcitriol 2016-08 Yes .25ug Take 1 [facility] ers 0.25 mcg 1-30 capsule by ity o f capsule 00:00: mouth [place] 00 daily. Medical Branch doxazosin 2 2016-08 Yes 2mg Take 1 [facility] ers mg tablet 1-30 tablet by ity o f 00:00: mouth 2 [place] 00 (two) Medical times Branch daily. amLODIPine 2016-08 Yes [id number] 10mg Take 1 U nivers 10 mg 1-30 tablet by ity of tablet 00:00: mouth [place] 00 daily. Medical Branch Ferrous 2016-08 Yes [id number] 325mg Take 1 Un gasper Fumarate 1-30 tablet by ity of 325 mg (106 00:00: mouth 3 [place] mg iron) 00 (three) Medical tablet times Branch daily with meals. guaiFENesin 2016-08 Yes 100mg Take 5 mL [facility] 100 mg/5 mL 1-30 by mouth ity of solution 00:00: every 4 [place] 00 (four) Medical hours. Branch docusate 2016-08 Yes 100mg Take 1 [facility] s 100 mg 1-30 capsule by ity of capsule 00:00: mouth [place] 00 daily. Medical Branch sennosides 2016-08 Yes 8.6mg Take 1 [facility] ers 8.6 mg 1-30 tablet by ity of tablet 00:00: mouth [place] 00 daily. Medical Branch calcitriol 2016-08 Yes .25ug Take 1 [facility] ers 0.25 mcg 1-30 capsule by ity o f capsule 00:00: mouth [place] 00 daily. Medical Branch doxazosin 2 2016-08 Yes 2mg Take 1 [facility] ers mg tablet 1-30 tablet by ity o f 00:00: mouth 2 [place] 00 (two) Medical times Branch daily. amLODIPine 2016-08 Yes [id number] 10mg Take 1 [facility] nivers 10 mg 1-30 tablet by ity of tablet 00:00: mouth [place] 00 daily. Medical Branch Ferrous 2016-08 Yes [id number] 325mg Take 1 Un gasper Fumarate 1-30 tablet by ity of 325 mg (106 00:00: mouth 3 [place] [facility] mg iron) 00 (three) Medical tablet times Branch daily with meals. guaiFENesin 2016-08 Yes 100mg Take 5 mL [facility] 100 mg/5 mL 1-30 by mouth ity of solution 00:00: every 4 [place] 00 (four) Medical hours. Branch docusate 2016-08 Yes 100mg Take 1 [facility] s 100 mg 1-30 capsule by ity of capsule 00:00: mouth [place] 00 daily. Medical Branch sennosides 2016-08 Yes 8.6mg Take 1 [facility] ers 8.6 mg 1-30 tablet by ity of tablet 00:00: mouth [place] 00 daily. [facility] Branch calcitriol 2016-08 Yes .25ug Take 1 [facility] ers 0.25 mcg 1-30 capsule by ity o f capsule 00:00: mouth [place] 00 daily. Medical Branch doxazosin 2 2016-08 Yes 2mg Take 1 [facility] ers mg tablet 1-30 tablet by ity o f 00:00: mouth 2 [place] 00 (two) Medical times Branch daily. amLODIPine 2016-08 Yes [id number] 10mg Take 1 [facility] nivers 10 mg 1-30 tablet by ity of tablet 00:00: mouth [place] 00 daily. Medical Branch Ferrous 2016-08 Yes [id number] 325mg Take 1 Un gasper Fumarate 1-30 tablet by ity of 325 mg (106 00:00: mouth 3 [place] [facility] mg iron) 00 (three) Medical tablet times Branch daily with meals. guaiFENesin 2016-08 Yes 100mg Take 5 mL [facility] 100 mg/5 mL 1-30 by mouth ity of solution 00:00: every 4 [place] 00 (four) Medical hours. Branch docusate 2016-08 Yes 100mg Take 1 [facility] 100 mg 1-30 capsule by ity of capsule 00:00: mouth [place] 00 daily. Medical Branch sennosides 2016-08 Yes 8.6mg Take 1 [facility] ers 8.6 mg 1-30 tablet by ity of tablet 00:00: mouth [place] 00 daily. [facility] calcitriol 2016-08 Yes .25ug Take 1 [facility] ers 0.25 mcg 1-30 capsule by ity o f capsule 00:00: mouth [place] 00 daily. Medical Branch doxazosin 2 2016-08 Yes 2mg Take 1 [facility] ers mg tablet 1-30 tablet by ity o f 00:00: mouth 2 [place] 00 (two) Medical times Branch daily. amLODIPine 2016-08 Yes [id number] 10mg Take 1 [facility] nivers 10 mg 1-30 tablet by ity of tablet 00:00: mouth [place] 00 daily. Medical [facility] Ferrous 2016-08 Yes [id number] 325mg Take 1 Un gasper Fumarate 1-30 tablet by ity of 325 mg (106 00:00: mouth 3 [place] [facility] mg iron) 00 (three) Medical tablet times Branch daily with meals. guaiFENesin 2016-08 Yes 100mg Take 5 mL [facility] 100 mg/5 mL 1-30 by mouth ity of solution 00:00: every 4 [place] 00 (four) Medical hours. Branch docusate 2016-08 Yes 100mg Take 1 [facility] 100 mg 1-30 capsule by ity of capsule 00:00: mouth [place] 00 daily. Medical Branch sennosides 2016-08 Yes 8.6mg Take 1 [facility] ers 8.6 mg 1-30 tablet by ity of tablet 00:00: mouth [place] 00 daily. [facility] calcitriol 2016-08 Yes .25ug Take 1 [facility] ers 0.25 mcg 1-30 capsule by ity o f capsule 00:00: mouth [place] 00 daily. [facility] doxazosin 2 2016-08 Yes 2mg Take 1 [facility] ers mg tablet 1-30 tablet by ity o f 00:00: mouth 2 [place] 00 (two) Medical times Branch daily. amLODIPine 2016-08 Yes [id number] 10mg Take 1 [facility] nivers 10 mg 1-30 tablet by ity of tablet 00:00: mouth [place] 00 daily. Medical Branch Ferrous 2016-08 Yes [id number] 325mg Take 1 Un gasper Fumarate 1-30 tablet by ity of 325 mg (106 00:00: mouth 3 [place] [facility] mg iron) 00 (three) Medical tablet times Branch daily with meals. guaiFENesin 2016-08 Yes 100mg Take 5 mL [facility] 100 mg/5 mL 1-30 by mouth ity of solution 00:00: every 4 [place] 00 (four) Medical hours. Branch docusate 2016-08 Yes 100mg Take 1 [facility] 100 mg 1-30 capsule by ity of capsule 00:00: mouth [place] 00 daily. Medical Branch sennosides 2016-08 Yes 8.6mg Take 1 [facility] ers 8.6 mg 1-30 tablet by ity of tablet 00:00: mouth [place] 00 daily. [facility] calcitriol 2016-08 Yes .25ug Take 1 [facility] ers 0.25 mcg 1-30 capsule by ity o f capsule 00:00: mouth [place] 00 daily. [facility] doxazosin 2 2016-08 Yes 2mg Take 1 [facility] ers mg tablet 1-30 tablet by ity o f 00:00: mouth 2 [place] 00 (two) Medical times Branch daily. amLODIPine 2016-08 Yes [id number] 10mg Take 1 [facility] nivers 10 mg 1-30 tablet by ity of tablet 00:00: mouth [place] 00 daily. Medical [facility] Ferrous 2016-08 Yes [id number] 325mg Take 1 Un gasper Fumarate 1-30 tablet by ity of 325 mg (106 00:00: mouth 3 [place] [facility] mg iron) 00 (three) Medical tablet times Branch daily with meals. guaiFENesin 2016-08 Yes 100mg Take 5 mL [facility] 100 mg/5 mL 1-30 by mouth ity of solution 00:00: every 4 [place] 00 (four) Medical hours. Branch docusate 2016-08 Yes 100mg Take 1 [facility] 100 mg 1-30 capsule by ity of capsule 00:00: mouth [place] 00 daily. Medical Branch sennosides 2016-08 Yes 8.6mg Take 1 [facility] ers 8.6 mg 1-30 tablet by ity of tablet 00:00: mouth [place] 00 daily. [facility] calcitriol 2016-08 Yes .25ug Take 1 [facility] 0.25 mcg 1-30 capsule by [facility] o f capsule 00:00: mouth [place] 00 daily. Medical Branch doxazosin 2 2016-08 Yes 2mg Take 1 [facility] mg tablet 1-30 tablet by ity o f 00:00: mouth 2 [place] 00 (two) Medical times Branch daily. amLODIPine 2016-08 Yes [id number] 10mg Take 1 [facility] 10 mg 1-30 tablet by [facility] of tablet 00:00: mouth [place] 00 daily. Medical Branch Ferrous 2016-08 Yes [id number] 325mg Take 1 [facility] Fumarate 1-30 tablet by [facility]y of 325 mg (106 00:00: mouth 3 [facility] [facility] mg iron) 00 (three) Medical tablet times Branch daily with meals. guaiFENesin 2016-08 Yes 100mg Take 5 mL [facility] 100 mg/5 mL 1-30 by mouth ity of solution 00:00: every 4 [place] 00 (four) Medical hours. Branch docusate 2016-08 Yes 100mg Take 1 [facility] 100 mg 1-30 capsule by [facility]y of capsule 00:00: mouth [place] 00 daily. Medical Branch sennosides 2016-08 Yes 8.6mg Take 1 [facility] 8.6 mg 1-30 tablet by [facility] of tablet 00:00: mouth [place] 00 daily. Medical [facility] calcitriol 2016-08 Yes .25ug Take 1 [facility] 0.25 mcg 1-30 capsule by [facility]y o f capsule 00:00: mouth [place] 00 daily. Medical [facility] doxazosin 2 2016-08 Yes 2mg Take 1 [facility] mg tablet 1-30 tablet by ity o f 00:00: mouth 2 [place] 00 (two) Medical times Branch daily. amLODIPine 2016-08 Yes [id number] 10mg Take 1 [facility] 10 mg 1-30 tablet by [facility] of tablet 00:00: mouth [place] 00 daily. Medical Branch Ferrous 2016-08 Yes [id number] 325mg Take 1 [facility] Fumarate 1-30 tablet by [facility]y of 325 mg (106 00:00: mouth 3 [place] mg iron) 00 (three) Medical tablet times Branch daily with meals. guaiFENesin 2016-08 Yes 100mg Take 5 mL [facility] 100 mg/5 mL 1-30 by mouth ity of solution 00:00: every 4 [place] 00 (four) Medical hours. Branch docusate 2016-08 Yes 100mg Take 1 [facility] 100 mg 1-30 capsule by [facility] of capsule 00:00: mouth [place] 00 daily. Medical Branch sennosides 2016-08 Yes 8.6mg Take 1 [facility] 8.6 mg 1-30 tablet by [facility] of tablet 00:00: mouth [place] 00 daily. Medical [facility] calcitriol 2016-08 Yes .25ug Take 1 [facility] 0.25 mcg 1-30 capsule by ity o f capsule 00:00: mouth [place] 00 daily. Medical Branch doxazosin 2 2016-08 Yes 2mg Take 1 [facility] mg tablet 1-30 tablet by ity o f 00:00: mouth 2 [place] 00 (two) Medical times Branch daily. amLODIPine 2016-08 Yes [id number] 10mg Take 1 [facility] 10 mg 1-30 tablet by [facility] of tablet 00:00: mouth [place] 00 daily. Medical Branch Ferrous 2016-08 Yes [id number] 325mg Take 1 [facility] Fumarate 1-30 tablet by [facility]y of 325 mg (106 00:00: mouth 3 [place] [facility] mg iron) 00 (three) Medical tablet times Branch daily with meals. guaiFENesin 2016-08 Yes 100mg Take 5 mL [facility] 100 mg/5 mL 1-30 by mouth [facility] of solution 00:00: every 4 [place] 00 (four) Medical hours. Branch docusate 2016-08 Yes 100mg Take 1 [facility] 100 mg 1-30 capsule by [facility] of capsule 00:00: mouth [place] 00 daily. Medical Branch sennosides 2016-08 Yes 8.6mg Take 1 [facility] 8.6 mg 1-30 tablet by [facility] of tablet 00:00: mouth [place] 00 daily. Medical [facility] calcitriol 2016-08 Yes .25ug Take 1 [facility] 0.25 mcg 1-30 capsule by ity o f capsule 00:00: mouth [place] 00 daily. Medical Branch doxazosin 2 2017-1 Yes 2mg Take 1 [facility] mg tablet 1-30 tablet by ity o f 00:00: mouth 2 [place] 00 (two) Medical times Branch daily. amLODIPine 2016-08 Yes [id number] 10mg Take 1 [facility] 10 mg 1-30 tablet by ity of tablet 00:00: mouth [place] 00 daily. Medical Branch Ferrous 2016-08 Yes [id number] 325mg Take 1 [facility] gas[facility] Fumarate 1-30 tablet by [facility]y of 325 mg (106 00:00: mouth 3 [place] [facility] mg iron) 00 (three) Medical tablet times Branch daily with meals. guaiFENesin 2016-08 Yes 100mg Take 5 mL [facility] 100 mg/5 mL 1-30 by mouth ity of solution 00:00: every 4 [place] 00 (four) Medical hours. Branch docusate 2016-08 Yes 100mg Take 1 [facility] 100 mg 1-30 capsule by [facility] of capsule 00:00: mouth [place] 00 daily. Medical Branch sennosides 2016-08 Yes 8.6mg Take 1 [facility] 8.6 mg 1-30 tablet by [facility] of tablet 00:00: mouth [place] 00 daily. Medical [facility] calcitriol 2016-08 Yes .25ug Take 1 [facility] 0.25 mcg 1-30 capsule by ity o f capsule 00:00: mouth [place] 00 daily. Medical [facility] doxazosin 2 2016-08 Yes 2mg Take 1 [facility] mg tablet 1-30 tablet by ity o f 00:00: mouth 2 [place] 00 (two) Medical times Branch daily. amLODIPine 2016-08 Yes [id number] 10mg Take 1 [facility] 10 mg 1-30 tablet by ity of tablet 00:00: mouth [place] 00 daily. Medical Branch Ferrous 2016-08 Yes [id number] 325mg Take 1 [facility] gas[facility] Fumarate 1-30 tablet by [facility]y of 325 mg (106 00:00: mouth 3 [place] [facility] mg iron) 00 (three) Medical tablet times Branch daily with meals. guaiFENesin 2016-08 Yes 100mg Take 5 mL [facility] 100 mg/5 mL 1-30 by mouth [facility] of solution 00:00: every 4 [place] 00 (four) Medical hours. Branch docusate 2016-08 Yes 100mg Take 1 [facility] 100 mg 1-30 capsule by [facility] of capsule 00:00: mouth [place] 00 daily. Medical Branch sennosides 2016-08 Yes 8.6mg Take 1 [facility] 8.6 mg 1-30 tablet by [facility]y of tablet 00:00: mouth [place] 00 daily. Medical [facility] calcitriol 2016-08 Yes .25ug Take 1 [facility] 0.25 mcg 1-30 capsule by ity o f capsule 00:00: mouth [place] 00 daily. Medical Branch doxazosin 2 2016-08 Yes 2mg Take 1 [facility] mg tablet 1-30 tablet by ity o f 00:00: mouth 2 [place] 00 (two) Medical times Branch daily. amLODIPine 2016-08 Yes [id number] 10mg Take 1 [facility] 10 mg 1-30 tablet by [facility]y of tablet 00:00: mouth [place] 00 daily. Medical Branch Ferrous 2016-08 Yes [id number] 325mg Take 1 [facility] Fumarate 1-30 tablet by [facility]y of 325 mg (106 00:00: mouth 3 [place] mg iron) 00 (three) Medical tablet times Branch daily with meals. guaiFENesin 2016-08 Yes 100mg Take 5 mL [facility] 100 mg/5 mL 1-30 by mouth [facility] of solution 00:00: every 4 [place] 00 (four) Medical hours. Branch docusate 2016-08 Yes 100mg Take 1 [facility] 100 mg 1-30 capsule by [facility]y of capsule 00:00: mouth [place] 00 daily. Medical Branch sennosides 2016-08 Yes 8.6mg Take 1 [facility] 8.6 mg 1-30 tablet by [facility]y of tablet 00:00: mouth [place] 00 daily. [facility] calcitriol 2016-08 Yes .25ug Take 1 [facility] 0.25 mcg 1-30 capsule by ity o f capsule 00:00: mouth [place] 00 daily. [facility] aspirin 81 2016-08 Yes 81mg Take 1 [facility] mg chewable 1-18 tablet by [facility] of tablet 00:00: mouth [place] 00 daily. Medical [facility] aspirin 81 2016-08 Yes 81mg Take 1 [facility] mg chewable 1-18 tablet by [facility] of tablet 00:00: mouth [place] 00 daily. Medical [facility] aspirin 81 2016-08 Yes 81mg Take 1 [facility] mg chewable 1-18 tablet by [facility]y of tablet 00:00: mouth [place] 00 daily. Medical [facility] aspirin 81 2016-08 Yes 81mg Take 1 [facility] mg chewable 1-18 tablet by [facility]y of tablet 00:00: mouth [place] 00 daily. Medical [facility] aspirin 81 2016-08 Yes 81mg Take 1 [facility] mg chewable 1-18 tablet by [facility]y of tablet 00:00: mouth [place] 00 daily. Medical Branch aspirin 81 2016-08 Yes 81mg Take 1 [facility] mg chewable 1-18 tablet by [facility]y of tablet 00:00: mouth [place] 00 daily. Medical Branch aspirin 81 2016-08 Yes 81mg Take 1 [facility] mg chewable 1-18 tablet by ity of tablet 00:00: mouth [place] 00 daily. Medical Branch aspirin 81 2016-08 Yes 81mg Take 1 [facility] mg chewable 1-18 tablet by ity of tablet 00:00: mouth [place] 00 daily. Medical Branch aspirin 81 2016-08 Yes 81mg Take 1 [facility] mg chewable 1-18 tablet by [facility]y of tablet 00:00: mouth [place] 00 daily. Medical Branch aspirin 81 2016-08 Yes 81mg Take 1 [facility] mg chewable 1-18 tablet by [facility]y of tablet 00:00: mouth [place] 00 daily. Medical Branch aspirin 81 2016-08 Yes 81mg Take 1 [facility] mg chewable 1-18 tablet by [facility]y of tablet 00:00: mouth [place] 00 daily. Medical [facility] aspirin 81 2016-08 Yes 81mg Take 1 [facility] mg chewable 1-18 tablet by [facility]y of tablet 00:00: mouth [place] 00 daily. Medical Branch aspirin 81 2016-08 Yes 81mg Take 1 [facility] mg chewable 1-18 tablet by [facility]y of tablet 00:00: mouth [place] 00 daily. Medical Branch aspirin 81 2016-08 Yes 81mg Take 1 [facility] mg chewable 1-18 tablet by [facility] of tablet 00:00: mouth [place] 00 daily. Medical Branch aspirin 81 2016-08 Yes 81mg Take 1 [facility] mg chewable 1-18 tablet by [facility] of tablet 00:00: mouth [place] 00 daily. Medical Branch aspirin 81 2016-08 Yes 81mg Take 1 [facility] mg chewable 1-18 tablet by [facility] of tablet 00:00: mouth [place] 00 daily. Medical Branch Calcium 2017- Yes [id number] 1{tbl} Take 1 [facility] Carbonate 7-31 tablet by ity o f 260 mg 00:00: mouth 3 [place] calcium 00 (three) Medical (650 mg) times Branch Chew daily with meals. Calcium 2017- Yes [id number] 1{tbl} Take 1 [facility] Carbonate 7-31 tablet by ity o f 260 mg 00:00: mouth 3 [place] calcium 00 (three) Medical (650 mg) times Branch Chew daily with meals. Calcium Yes [id number] 1{tbl} Take 1 [facility] Carbonate 7-31 tablet by ity o f 260 mg 00:00: mouth 3 [place] calcium 00 (three) Medical (650 mg) times Branch Chew daily with meals. Calcium Yes [id number] 1{tbl} Take 1 [facility] Carbonate 7-31 tablet by ity o f 260 mg 00:00: mouth 3 [place] calcium 00 (three) Medical (650 mg) times Branch Chew daily with meals. Calcium Yes [id number] 1{tbl} Take 1 [facility] Carbonate 7-31 tablet by ity o f 260 mg 00:00: mouth 3 [place] calcium 00 (three) Medical (650 mg) times Branch Chew daily with meals. Calcium Yes [id number] 1{tbl} Take 1 [facility] Carbonate 7-31 tablet by ity o f 260 mg 00:00: mouth 3 [place] calcium 00 (three) Medical (650 mg) times Branch Chew daily with meals. Calcium Yes [id number] 1{tbl} Take 1 [facility] Carbonate 7-31 tablet by ity o f 260 mg 00:00: mouth 3 [place] calcium 00 (three) Medical (650 mg) times Branch Chew daily with meals. Calcium Yes [id number] 1{tbl} Take 1 [facility] Carbonate 7-31 tablet by ity o f 260 mg 00:00: mouth 3 [place] calcium 00 (three) Medical (650 mg) times Branch Chew daily with meals. Calcium Yes [id number] 1{tbl} Take 1 [facility] gas[facility] Carbonate 7-31 tablet by ity o f 260 mg 00:00: mouth 3 [place] calcium 00 (three) Medical (650 mg) times Branch Chew daily with meals. Calcium Yes [id number] 1{tbl} Take 1 [facility] gas[facility] Carbonate 7-31 tablet by ity o f 260 mg 00:00: mouth 3 [place] calcium 00 (three) Medical (650 mg) times Branch Chew daily with meals. Calcium Yes [id number] 1{tbl} Take 1 [facility] Carbonate 7-31 tablet by ity o f 260 mg 00:00: mouth 3 [place] calcium 00 (three) Medical (650 mg) times Branch Chew daily with meals. Calcium Yes [id number] 1{tbl} Take 1 [facility] gas[facility] Carbonate 7-31 tablet by ity o f 260 mg 00:00: mouth 3 [place] calcium 00 (three) Medical (650 mg) times Branch Chew daily with meals. Calcium Yes [id number] 1{tbl} Take 1 [facility] gas[facility] Carbonate 7-31 tablet by ity o f 260 mg 00:00: mouth 3 [place] calcium 00 (three) Medical (650 mg) times Branch Chew daily with meals. Calcium Yes [id number] 1{tbl} Take 1 [facility] Carbonate 7-31 tablet by ity o f 260 mg 00:00: mouth 3 [place] calcium 00 (three) Medical (650 mg) times Branch Chew daily with meals. Calcium Yes [id number] 1{tbl} Take 1 [facility] Carbonate 7-31 tablet by ity o f 260 mg 00:00: mouth 3 [place] calcium 00 (three) Medical (650 mg) times Branch Chew daily with meals. Calcium Yes [id number] 1{tbl} Take 1 [facility] Carbonate 7-31 tablet by ity o f 260 mg 00:00: mouth 3 [place] calcium 00 (three) Medical (650 mg) times Branch Chew daily with meals. ONETOUCH 2015-08 Yes USE ONE [facility] ULTRA TEST 2-19 STRIP TO ity o f strip 00:00: CHECK [place] 00 GLUCOSE Medical THREE Branch TIMES DAILY ONETOUCH 2015-08 Yes USE ONE [facility] ULTRA TEST 2-19 STRIP TO ity o f strip 00:00: CHECK [place] 00 GLUCOSE Medical THREE Branch TIMES DAILY ONETOUCH 2015-08 Yes USE ONE [facility] ULTRA TEST 2-19 STRIP TO ity o f strip 00:00: CHECK [place] 00 GLUCOSE Medical THREE Branch TIMES DAILY ONETOUCH 2015-08 Yes USE ONE [facility] ULTRA TEST 2-19 STRIP TO ity o f strip 00:00: CHECK [place] 00 GLUCOSE Medical THREE Branch TIMES DAILY ONETOUCH 2015-08 Yes USE ONE [facility] ULTRA TEST 2-19 STRIP TO ity o f strip 00:00: CHECK [place] 00 GLUCOSE Medical THREE Branch TIMES DAILY ONETOUCH 2015-08 Yes USE ONE [facility] ULTRA TEST 2-19 STRIP TO ity o f strip 00:00: CHECK [place] 00 GLUCOSE Medical THREE Branch TIMES DAILY ONETOUCH 2015-08 Yes USE ONE [facility] ULTRA TEST 2-19 STRIP TO ity o f strip 00:00: CHECK [place] 00 GLUCOSE Medical THREE Branch TIMES DAILY ONETOUCH 2015-08 Yes USE ONE [facility] ULTRA TEST 2-19 STRIP TO ity o f strip 00:00: CHECK [place] 00 GLUCOSE Medical THREE Branch TIMES DAILY ONETOUCH 2015-08 Yes USE ONE [facility] ULTRA TEST 2-19 STRIP TO ity o f strip 00:00: CHECK [place] 00 GLUCOSE Medical THREE Branch TIMES DAILY ONETOUCH 2015-08 Yes USE ONE [facility] ULTRA TEST 2-19 STRIP TO ity o f strip 00:00: CHECK [place] 00 GLUCOSE Medical THREE Branch TIMES DAILY ONETOUCH 2015-08 Yes USE ONE [facility] ULTRA TEST 2-19 STRIP TO ity o f strip 00:00: CHECK [place] 00 GLUCOSE Medical THREE Branch TIMES DAILY ONETOUCH 2015-08 Yes USE ONE [facility] ULTRA TEST 2-19 STRIP TO ity o f strip 00:00: CHECK [place] 00 GLUCOSE Medical THREE Branch TIMES DAILY ONETOUCH 2015-08 Yes USE ONE [facility] ULTRA TEST 2-19 STRIP TO ity o f strip 00:00: CHECK [place] 00 GLUCOSE Medical THREE Branch TIMES DAILY ONETOUCH 2015-08 Yes USE ONE [facility] ULTRA TEST 2-19 STRIP TO ity o f strip 00:00: CHECK [place] 00 GLUCOSE Medical THREE Branch TIMES DAILY ONETOUCH 2015-08 Yes USE ONE [facility] ULTRA TEST 2-19 STRIP TO ity o f strip 00:00: CHECK [place] 00 GLUCOSE Medical THREE Branch TIMES DAILY ONETOUCH 2015-08 Yes USE ONE [facility] ULTRA TEST 2-19 STRIP TO ity o f strip 00:00: CHECK [place] 00 GLUCOSE Medical THREE Branch TIMES DAILY furosemide 2015-0 Yes 40mg Take 1 [facility] (LASIX) 40 5-25 tablet by ity of mg tablet 00:00: mouth [place] 00 every Medical morning Branch and evening. furosemide 2015-0 Yes 40mg Take 1 [facility] (LASIX) 40 5-25 tablet by ity of mg tablet 00:00: mouth [place] 00 every Medical morning Branch and evening. furosemide 2016-0 Yes 40mg Take 1 [facility] (LASIX) 40 5-25 tablet by ity of mg tablet 00:00: mouth [place] 00 every Medical morning Branch and evening. furosemide 2016-0 Yes 40mg Take 1 [facility] (LASIX) 40 5-25 tablet by ity of mg tablet 00:00: mouth [place] 00 every Medical morning Branch and evening. furosemide 2016-0 Yes 40mg Take 1 [facility] (LASIX) 40 5-25 tablet by ity of mg tablet 00:00: mouth [place] 00 every Medical morning Branch and evening. furosemide 2016-0 Yes 40mg Take 1 [facility] (LASIX) 40 5-25 tablet by ity of mg tablet 00:00: mouth [place] 00 every Medical morning Branch and evening. furosemide 2016-0 Yes 40mg Take 1 [facility] (LASIX) 40 5-25 tablet by ity of mg tablet 00:00: mouth [place] 00 every Medical morning Branch and evening. furosemide 2016-0 Yes 40mg Take 1 [facility] (LASIX) 40 5-25 tablet by ity of mg tablet 00:00: mouth [place] 00 every Medical morning Branch and evening. furosemide 2016-0 Yes 40mg Take 1 [facility] (LASIX) 40 5-25 tablet by ity of mg tablet 00:00: mouth [place] 00 every Medical morning Branch and evening. furosemide 2016-0 Yes 40mg Take 1 [facility] (LASIX) 40 5-25 tablet by ity of mg tablet 00:00: mouth [place] 00 every Medical morning Branch and evening. furosemide 2016-0 Yes 40mg Take 1 [facility] (LASIX) 40 5-25 tablet by ity of mg tablet 00:00: mouth [place] 00 every Medical morning Branch and evening. furosemide 2016-0 Yes 40mg Take 1 [facility] (LASIX) 40 5-25 tablet by ity of mg tablet 00:00: mouth [place] 00 every Medical morning Branch and evening. furosemide 2016-0 Yes 40mg Take 1 [facility] (LASIX) 40 5-25 tablet by ity of mg tablet 00:00: mouth [place] 00 every Medical morning Branch and evening. furosemide 2016-0 Yes 40mg Take 1 [facility] (LASIX) 40 5-25 tablet by ity of mg tablet 00:00: mouth [place] 00 every Medical morning Branch and evening. furosemide 2016-0 Yes 40mg Take 1 [facility] (LASIX) 40 5-25 tablet by ity of mg tablet 00:00: mouth [place] 00 every Medical morning Branch and evening. furosemide 2016-0 Yes 40mg Take 1 [facility] (LASIX) 40 5-25 tablet by ity of mg tablet 00:00: mouth [place] 00 every Medical morning Branch and evening. furosemide 2015-0 Yes 80mg QD Take 80 mg [facility] (LASIX) 40 5-[address] mg tablet 00:00: [facility]. [facility] furosemide 2015-0 Yes 40mg Take 40 mg [facility]i (LASIX) 40 5-[address] mg tablet 00:00: as [facility]. [facility] sildenafil 2015- Yes [id number] 25mg Take 1 [facility] (VIAGRA) 25 5-16 tablet by [facility] mg tablet 00:00: [place] 00 needed (1 Medical hour Branch before sexual activity). Needle, Yes [id number] Use as [facility] Disp, 22 G 5-16 directed, ity of (BD 00:00: DX: E29.1 [place] DISPOSABLE 00 Medical NEEDLES) 22 Branch gauge x 1 1/2" Ndle insulin Yes [id number] Use as [facility] syringe-nee 5-16 directed, ity of dle U-100 00:00: TID, [place] (BD INSULIN 00 Dx:E11.27 Med ical SYRINGE Branch ULTRA-FINE) 1 mL 31 gauge x 15/64" Syrg sildenafil Yes [id number] 25mg Take 1 [facility] (VIAGRA) 25 5-16 tablet by [facility] mg tablet 00:00: mouth [place] 00 needed (1 Medical hour Branch before sexual activity). Needle, Yes [id number] Use as [facility] Disp, 22 G 5-16 directed, ity of (BD 00:00: DX: E29.1 [place] DISPOSABLE 00 Medical NEEDLES) 22 Branch gauge x 1 1/2" Ndle insulin Yes [id number] Use as [facility] syringe-nee 5-16 directed, ity of dle U-100 00:00: TID, [place] (BD INSULIN 00 Dx:E11.27 Med ical SYRINGE Branch ULTRA-FINE) 1 mL 31 gauge x 15/64" Syrg sildenafil Yes [id number] 25mg Take 1 [facility] (VIAGRA) 25 5-16 tablet by [facility] mg tablet 00:00: mouth [place] 00 needed (1 Medical hour Branch before sexual activity). Needle, Yes [id number] Use as [facility] Disp, 22 G 5-16 directed, ity of (BD 00:00: DX: E29.1 [place] DISPOSABLE 00 Medical NEEDLES) 22 Branch gauge x 1 1/2" Ndle insulin Yes [id number] Use as [facility] syringe-nee 5-16 directed, ity of dle U-100 00:00: TID, [place] (BD INSULIN 00 Dx:E11.27 Med ical SYRINGE Branch ULTRA-FINE) 1 mL 31 gauge x 15/64" Syrg sildenafil Yes [id number] 25mg Take 1 [facility] (VIAGRA) 25 5-16 tablet by [facility] mg tablet 00:00: mouth [place] 00 needed (1 Medical hour Branch before sexual activity). Needle, Yes [id number] Use as [facility] Disp, 22 G 5-16 directed, ity of (BD 00:00: DX: E29.1 [place] DISPOSABLE 00 Medical NEEDLES) 22 Branch gauge x 1 1/2" Ndle insulin Yes [id number] Use as [facility] syringe-nee 5-16 directed, ity of dle U-100 00:00: TID, [place] (BD INSULIN 00 Dx:E11.27 Med ical SYRINGE Branch ULTRA-FINE) 1 mL 31 gauge x 15/64" Syrg sildenafil Yes [id number] 25mg Take 1 [facility] (VIAGRA) 25 5-16 tablet by [facility] mg tablet 00:00: mouth as [place] 00 needed (1 Medical hour Branch before sexual activity). Needle, Yes [id number] Use as [facility] Disp, 22 G 5-16 directed, ity of (BD 00:00: DX: E29.1 [place] DISPOSABLE 00 Medical NEEDLES) 22 Branch gauge x 1 1/2" Ndle insulin Yes [id number] Use as [facility] syringe-nee 5-16 directed, ity of dle U-100 00:00: TID, [place] (BD INSULIN 00 Dx:E11.27 Med ical SYRINGE Branch ULTRA-FINE) 1 mL 31 gauge x 15/64" Syrg sildenafil Yes [id number] 25mg Take 1 [facility] (VIAGRA) 25 5-16 tablet by [facility] mg tablet 00:00: mouth as [place] 00 needed (1 Medical hour Branch before sexual activity). Needle, Yes [id number] Use as [facility] Disp, 22 G 5-16 directed, ity of (BD 00:00: DX: E29.1 [place] DISPOSABLE 00 Medical NEEDLES) 22 Branch gauge x 1 1/2" Ndle insulin Yes [id number] Use as [facility] syringe-nee 5-16 directed, ity of dle U-100 00:00: TID, [place] (BD INSULIN 00 Dx:E11.27 Med ical SYRINGE Branch ULTRA-FINE) 1 mL 31 gauge x 15/64" Syrg sildenafil Yes [id number] 25mg Take 1 [facility] (VIAGRA) 25 5-16 tablet by [facility] mg tablet 00:00: mouth as [place] 00 needed (1 Medical hour Branch before sexual activity). Needle, Yes [id number] Use as [facility] Disp, 22 G 5-16 directed, ity of (BD 00:00: DX: E29.1 [place] DISPOSABLE 00 Medical NEEDLES) 22 Branch gauge x 1 1/2" Ndle insulin Yes [id number] Use as [facility] syringe-nee 5-16 directed, ity of dle U-100 00:00: TID, [place] (BD INSULIN 00 Dx:E11.27 Med ical SYRINGE Branch ULTRA-FINE) 1 mL 31 gauge x 15/64" Syrg sildenafil Yes [id number] 25mg Take 1 [facility] (VIAGRA) 25 5-16 tablet by [facility] mg tablet 00:00: mouth as [place] 00 needed (1 Medical hour Branch before sexual activity). Needle, Yes [id number] Use as [facility] Disp, 22 G 5-16 directed, ity of (BD 00:00: DX: E29.1 [place] DISPOSABLE 00 Medical NEEDLES) 22 Branch gauge x 1 1/2" Ndle insulin Yes [id number] Use as [facility] syringe-nee 5-16 directed, ity of dle U-100 00:00: TID, [place] (BD INSULIN 00 Dx:E11.27 Med ical SYRINGE Branch ULTRA-FINE) 1 mL 31 gauge x 15/64" Syrg sildenafil 2016-0 Yes [id number] 25mg Take 1 [facility] (VIAGRA) 25 5-16 tablet by [facility] mg tablet 00:00: mouth as [place] 00 needed (1 Medical hour Branch before sexual activity). Needle, Yes [id number] Use as [facility] Disp, 22 G 5-16 directed, ity of (BD 00:00: DX: E29.1 [place] DISPOSABLE 00 Medical NEEDLES) 22 Branch gauge x 1 1/2" Ndle insulin 2015- Yes [id number] Use as [facility] syringe-nee 5-16 directed, ity of dle U-100 00:00: TID, [place] (BD INSULIN 00 Dx:E11.27 Med ical SYRINGE Branch ULTRA-FINE) 1 mL 31 gauge x 15/64" Syrg sildenafil 2015- Yes [id number] 25mg Take 1 [facility] (VIAGRA) 25 5-16 tablet by [facility] mg tablet 00:00: mouth as [place] 00 needed (1 Medical hour Branch before sexual activity). Needle, Yes [id number] Use as [facility] Disp, 22 G 5-16 directed, ity of (BD 00:00: DX: E29.1 [place] DISPOSABLE 00 Medical NEEDLES) 22 Branch gauge x 1 1/2" Ndle insulin Yes [id number] Use as [facility] syringe-nee 5-16 directed, ity of dle U-100 00:00: TID, [place] (BD INSULIN 00 Dx:E11.27 Med ical SYRINGE Branch ULTRA-FINE) 1 mL 31 gauge x 15/64" Syrg sildenafil 2015- Yes [id number] 25mg Take 1 [facility] (VIAGRA) 25 5-16 tablet by [facility] mg tablet 00:00: mouth as [place] 00 needed (1 Medical hour Branch before sexual activity). Needle, Yes [id number] Use as [facility] Disp, 22 G 5-16 directed, ity of (BD 00:00: DX: E29.1 [place] DISPOSABLE 00 Medical NEEDLES) 22 Branch gauge x 1 1/2" Ndle insulin Yes [id number] Use as [facility] syringe-nee 5-16 directed, ity of dle U-100 00:00: TID, [place] (BD INSULIN 00 Dx:E11.27 Med ical SYRINGE Branch ULTRA-FINE) 1 mL 31 gauge x 15/64" Syrg sildenafil Yes [id number] 25mg Take 1 [facility] (VIAGRA) 25 5-16 tablet by [facility] of mg tablet 00:00: mouth as [place] 00 needed (1 Medical hour Branch before sexual activity). Needle, Yes [id number] Use as [facility] Disp, 22 G 5-16 directed, ity of (BD 00:00: DX: E29.1 [place] DISPOSABLE 00 Medical NEEDLES) 22 Branch gauge x 1 1/2" Ndle insulin Yes [id number] Use as [facility] syringe-nee 5-16 directed, ity of dle U-100 00:00: TID, [place] (BD INSULIN 00 Dx:E11.27 Med ical SYRINGE Branch ULTRA-FINE) 1 mL 31 gauge x 15/64" Syrg sildenafil Yes [id number] 25mg Take 1 [facility] (VIAGRA) 25 5-16 tablet by [facility] mg tablet 00:00: mouth as [place] 00 needed (1 Medical hour Branch before sexual activity). Needle, Yes [id number] Use as [facility] Disp, 22 G 5-16 directed, ity of (BD 00:00: DX: E29.1 [place] DISPOSABLE 00 Medical NEEDLES) 22 Branch gauge x 1 1/2" Ndle insulin Yes [id number] Use as [facility] syringe-nee 5-16 directed, ity of dle U-100 00:00: TID, [place] (BD INSULIN 00 Dx:E11.27 Med ical SYRINGE Branch ULTRA-FINE) 1 mL 31 gauge x 15/64" Syrg sildenafil Yes [id number] 25mg Take 1 [facility] (VIAGRA) 25 5-16 tablet by [facility] mg tablet 00:00: mouth as [place] 00 needed (1 Medical hour Branch before sexual activity). Needle, Yes [id number] Use as [facility] Disp, 22 G 5-16 directed, ity of (BD 00:00: DX: E29.1 [place] DISPOSABLE 00 Medical NEEDLES) 22 Branch gauge x 1 1/2" Ndle insulin Yes [id number] Use as [facility] syringe-nee 5-16 directed, ity of dle U-100 00:00: TID, [place] (BD INSULIN 00 Dx:E11.27 Med ical SYRINGE Branch ULTRA-FINE) 1 mL 31 gauge x 15/64" Syrg sildenafil Yes [id number] 25mg Take 1 [facility] (VIAGRA) 25 5-16 tablet by [facility] mg tablet 00:00: mouth as [place] 00 needed (1 Medical hour Branch before sexual activity). Needle, Yes [id number] Use as [facility] Disp, 22 G 5-16 directed, ity of (BD 00:00: DX: E29.1 [place] DISPOSABLE 00 Medical NEEDLES) 22 Branch gauge x 1 1/2" Ndle insulin Yes [id number] Use as [facility] syringe-nee 5-16 directed, ity of dle U-100 00:00: TID, [place] (BD INSULIN 00 Dx:E11.27 Med ical SYRINGE Branch ULTRA-FINE) 1 mL 31 gauge x 15/64" Syrg sildenafil Yes [id number] 25mg Take 1 [facility] (VIAGRA) 25 5-16 tablet by [facility] mg tablet 00:00: mouth as [place] 00 needed (1 Medical hour Branch before sexual activity). Needle, Yes [id number] Use as [facility] Disp, 22 G 5-16 directed, ity of (BD 00:00: DX: E29.1 [place] DISPOSABLE 00 Medical NEEDLES) 22 Branch gauge x 1 1/2" Ndle insulin Yes [id number] Use as Univ ers syringe-nee 5-16 directed, ity of dle U-100 00:00: TID, [place] (BD INSULIN 00 Dx:E11.27 Med ical SYRINGE Branch ULTRA-FINE) 1 mL 31 gauge x 15/64" Syrg ONE TOUCH Yes Univers ULTRASOFT 7-15 ity of LANCETS 00:00: [place] Misc 00 Medical Branch ONE TOUCH Yes Univers ULTRASOFT 7-15 ity of LANCETS 00:00: [place] [facility] 00 Medical Branch ONE TOUCH Yes Univers ULTRASOFT 7-15 ity of LANCETS 00:00: [place] Misc Medical Branch ONE TOUCH Yes Univers ULTRASOFT 7-15 ity of LANCETS 00:00: [place] Mis 00 Medical Branch ONE TOUCH Yes Univers ULTRASOFT 7-15 ity of LANCETS 00:00: [place] Misc 00 Medical Branch ONE TOUCH Yes Univers ULTRASOFT 7-15 ity of LANCETS 00:00: [place] M[facility] 00 Medical Branch ONE TOUCH Yes Univers ULTRASOFT 7-15 ity of LANCETS 00:00: [place] [facility]isc 00 Medical Branch ONE TOUCH Yes Univers ULTRASOFT 7-15 ity of LANCETS 00:00: [place] Mis Medical Branch ONE TOUCH Yes Univers ULTRASOFT 7-15 ity of LANCETS 00:00: [place] Mis Medical Branch ONE TOUCH Yes Univers ULTRASOFT 7-15 ity of LANCETS 00:00: [place] Mis 00 Medical Branch ONE TOUCH Yes Univers ULTRASOFT 7-15 ity of LANCETS 00:00: [place] Mis 00 Medical Branch ONE TOUCH Yes Univers ULTRASOFT 7-15 ity of LANCETS 00:00: [place] Mis Medical Branch ONE TOUCH Yes Univers ULTRASOFT 7-15 ity of LANCETS 00:00: [place] Mis Medical Branch ONE TOUCH Yes Univers ULTRASOFT 7-15 ity of LANCETS 00:00: [place] Mis 00 Medical Branch ONE TOUCH Yes Univers ULTRASOFT 7-15 ity of LANCETS 00:00: [place] Mis 00 Medical Branch ONE TOUCH Yes Univers ULTRASOFT 7-15 ity of LANCETS 00:00: [place] [facility] 00 Medical Branch Immunizations Ordered Filled Immunization Date Status Comments [facility] e Immunization Name Name [id number] 2020-09-12 Completed Memor ial [facility] [id number] 16:56:37 ER<sup>1, 2</sup> [id number] 2020-09-12 Completed Memor ial [facility] [id number] 00:00:00 ER [id number] 2020-08-22 Completed Memor ial [facility] [id number]-[id number] 19:28:00 ER [id number]-[id number]-19m 2020-08-22 Completed Memor ial [facility] [id number]-[id number] 19:28:00 ER Pneumococcal 2017-06-30 Completed University o f Polysaccharide, 00:00:00 [place] [facility] ical PPSV23 (PNEUMOVAX) Branch Influenza Virus 2017-06-30 Completed Universit y of Vaccine Quad IM 3+ 00:00:00 [facility] Pneumococcal 2017-06-30 Completed University o f Polysaccharide, 00:00:00 [place] Med ical PPSV23 (PNEUMOVAX) Branch Influenza Virus 2017-06-30 Completed Universit y of Vaccine Quad IM 3+ 00:00:00 [facility] Pneumococcal 2017-06-30 Completed University o f Polysaccharide, 00:00:00 [place] Med ical PPSV23 (PNEUMOVAX) Branch Influenza Virus 2017-06-30 Completed Universit y of Vaccine Quad IM 3+ 00:00:00 [facility] Pneumococcal 2017-06-30 Completed University o f Polysaccharide, 00:00:00 [place] Med ical PPSV23 (PNEUMOVAX) Branch Influenza Virus 2017-06-30 Completed Universit y of Vaccine Quad IM 3+ 00:00:00 [facility] Pneumococcal 2017-06-30 Completed University o f Polysaccharide, 00:00:00 [place] Med ical PPSV23 (PNEUMOVAX) Branch Influenza Virus 2017-06-30 Completed Universit y of Vaccine Quad IM 3+ 00:00:00 [facility] Pneumococcal 2017-06-30 Completed University o f Polysaccharide, 00:00:00 [place] Med ical PPSV23 (PNEUMOVAX) Branch Influenza Virus 2017-06-30 Completed Universit y of Vaccine Quad IM 3+ 00:00:00 [facility] Pneumococcal 2017-06-30 Completed University o f Polysaccharide, 00:00:00 [place] Med ical PPSV23 (PNEUMOVAX) Branch Influenza Virus 2017-06-30 Completed Universit y of Vaccine Quad IM 3+ 00:00:00 [facility] Pneumococcal 2017-06-30 Completed University o f Polysaccharide, 00:00:00 [place] Med ical PPSV23 (PNEUMOVAX) Branch Influenza Virus 2017-06-30 Completed Universit y of Vaccine Quad IM 3+ 00:00:00 [facility] Pneumococcal 2017-06-30 Completed University o f Polysaccharide, 00:00:00 [place] Med ical PPSV23 (PNEUMOVAX) Branch Influenza Virus 2017-06-30 Completed Universit y of Vaccine Quad IM 3+ 00:00:00 [facility] Pneumococcal 2017-06-30 Completed University o f Polysaccharide, 00:00:00 [place] Med ical PPSV23 (PNEUMOVAX) Branch Influenza Virus 2017-06-30 Completed Universit y of Vaccine Quad IM 3+ 00:00:00 [facility] Pneumococcal 2017-06-30 Completed University o f Polysaccharide, 00:00:00 [place] Med ical PPSV23 (PNEUMOVAX) Branch Influenza Virus 2017-06-30 Completed Universit y of Vaccine Quad IM 3+ 00:00:00 [facility] Pneumococcal 2017-06-30 Completed University o f Polysaccharide, 00:00:00 [place] Med ical PPSV23 (PNEUMOVAX) Branch Influenza Virus 2017-06-30 Completed Universit y of Vaccine Quad IM 3+ 00:00:00 [facility] Pneumococcal 2017-06-30 Completed University o f Polysaccharide, 00:00:00 [place] Med ical PPSV23 (PNEUMOVAX) Branch Influenza Virus 2017-06-30 Completed Universit y of Vaccine Quad IM 3+ 00:00:00 [facility] Pneumococcal 2017-06-30 Completed University o f Polysaccharide, 00:00:00 [place] Med ical PPSV23 (PNEUMOVAX) Branch Influenza Virus 2017-06-30 Completed Universit y of Vaccine Quad IM 3+ 00:00:00 [facility] Pneumococcal 2017-06-30 Completed University o f Polysaccharide, 00:00:00 [place] Med ical PPSV23 (PNEUMOVAX) Branch Influenza Virus 2017-06-30 Completed Universit y of Vaccine Quad IM 3+ 00:00:00 [facility] Pneumococcal 2017-06-30 Completed University o f Polysaccharide, 00:00:00 [place] Med ical PPSV23 (PNEUMOVAX) Branch Influenza Virus 2017-06-30 Completed Universit y of Vaccine Quad IM 3+ 00:00:00 [facility] Vital Signs Vital Name Observation Time Observation Value Comments Source Body weight 2022-07-08 16:36:00 126.1 kg [facility] BMI 2022-07-08 16:36:00 37.70 kg/m2 [facility] Body height 2022-06-22 17:46:00 182.9 cm [facility] Body weight 2022-06-22 17:46:00 126.191 kg [facility] BMI 2022-06-22 17:46:00 37.73 kg/m2 Universi ty [facility] Systolic blood 2022-05-10 16:38:00 145 mm[Hg] Univer sity of pressure [facility] [place] Diastolic blood 2022-05-10 16:38:00 81 mm[Hg] Unive rsity of pressure [facility] [place] Heart rate 2022-05-10 16:31:00 76 /min Universi ty of [facility] [place] Body weight 2022-05-10 16:31:00 131.906 kg Universi ty of [facility] [place] BMI 2022-05-10 16:31:00 39.44 kg/m2 Universi ty [facility] Oxygen saturation in 2022-05-10 16:31:00 96 /min [facility] Arterial blood by [facility] Pulse oximetry Felt Body height 2022-05-05 14:56:00 182.9 cm Universi ty [facility] Body weight 2022-05-05 14:56:00 131.09 kg Universi ty [facility] BMI 2022-05-05 14:56:00 39.20 kg/m2 Universi ty [facility] Body weight 2021-10-23 15:01:00 131.09 kg Universi ty [facility] BMI 2021-10-23 15:01:00 39.20 kg/m2 Universi ty [facility] Systolic blood 2022-01-06 15:15:00 158 mm[Hg] [facility] pressure Diastolic blood 2022-01-06 15:15:00 64 mm[Hg] [facility] pressure Heart rate 2022-01-06 15:15:00 82 /min [facility] Respiratory rate 2022-01-06 15:15:00 18 /min [facility] Oxygen saturation in 2022-01-06 15:15:00 98 /min [facility] Arterial blood by Pulse oximetry Body temperature 2022-01-06 14:45:00 36.56 Nella [facility] Body height 2022-01-06 11:36:00 182.9 cm [facility] Body weight 2022-01-06 11:36:00 134.265 kg [facility] BMI 2022-01-06 11:36:00 40.14 kg/m2 [facility] Weight 2020-12-09 16:45:00 [facility] Height 2020-12-09 16:45:00 [facility] Temperature Oral (F) 2020-12-09 16:45:00 97.7 F [facility] Weight 2020-09-05 16:45:00 [facility] Height 2020-09-05 16:45:00 [facility] Temperature Oral (F) 2020-09-05 16:45:00 97.7 F [facility] Weight 2020-08-05 16:15:00 [facility] Height 2020-08-05 16:15:00 [facility] Temperature Oral (F) 2020-08-05 16:15:00 97.7 F [facility] Weight 2020-07-02 20:45:00 [facility] Height 2020-07-02 20:45:00 [facility] Temperature Oral (F) 2020-07-02 20:45:00 98.1 F [facility] Weight 2020-05-19 20:30:00 [facility] Height 2020-05-19 20:30:00 [facility] Temperature Oral (F) 2020-05-19 20:30:00 97.9 F [facility] Heart Rate 2020-05-19 20:30:00 [facility] Diastolic (mm Hg) 2020-05-19 20:30:00 Mem orial [facility] Systolic (mm Hg) 2020-05-19 20:30:00 Andre rial [facility] Weight 2020-05-05 19:15:00 [facility] Height 2020-05-05 19:15:00 [facility] Temperature Oral (F) 2020-05-05 19:15:00 98.1 F [facility] Heart Rate 2020-05-05 19:15:00 [facility] Diastolic (mm Hg) 2020-05-05 19:15:00 Mem orial [facility]en Systolic (mm Hg) 2020-05-05 19:15:00 Andre rial [facility] Weight 2020-01-24 20:00:00 [facility] Height 2020-01-24 20:00:00 [facility] Temperature Oral (F) 2020-01-24 20:00:00 98.1 F [facility] Heart Rate 2020-01-24 20:00:00 [facility] Diastolic (mm Hg) 2020-01-24 20:00:00 Mem orimorgan Mason Systolic (mm Hg) 2020-01-24 20:00:00 Andre rial [facility] Procedures Procedure Date / Time Performing Clinician Source Performed DME/SUPPLY JUSTIFICATION 2022-07-30 06:01:00 Doctor Unassigned, No [facility] DME/SUPPLY JUSTIFICATION 2022-07-16 06:01:00 Doctor Unassigned, No [facility] DME/SUPPLY JUSTIFICATION 2022-07-08 06:01:00 Doctor Unassigned, No [facility] OU SPECTRALIS OCT MACULA, 2022-07-08 00:00:00 Zoie López Un iversity [facility] BOTH EYES [facility] REFERRAL- 2022-07-01 06:01:00 Doctor Unassigned, No [facility] REQUEST/RESPONSE [facility] POCT HEMOGLOBIN A1C TEST 2022-05-10 16:40:00 Nicole Jean Baptiste [facility] ASSIGNMENT OF BENEFITS 2022-05-05 14:47:01 Doctor Unassigned, No [facility] OU SPECTRALIS OCT MACULA, 2022-05-05 00:00:00 [facility] [place] POC GLUCOSE 2022-01-06 14:24:00 Mario Duque [facility] POC GLUCOSE 2022-01-06 13:54:00 Mario Duque [facility] MA AN ELECTIVE 2022-01-06 12:42:00 Maren Gastelum ospital ENDOTRACHEAL AIRWAY Samaria LAPAROSCOPIC REMOVAL OR 2022-01-06 12:30:[address] [facility] REPOSITIONING OF PERITONEAL DIALYSIS CATHETER ESTIMATED GFR 2022-01-06 12:19:00 Mario Duque [facility] POC PANEL 2022-01-06 12:19:00 Mario Duque [facility] CBC WITH PLATELET AND 2022-01-05 15:48:00 Lizeth Garrido [facility] DIFFERENTIAL HEMOGLOBIN A1C 2022-01-05 15:48:00 [facility] GLU[facility]SE 2021-11-29 21:28:00 [facility] POC GLUCOSE 2021-11-29 16:41:00 [facility] MA AN ELECTIVE 2021-11-29 15:42:[address] [facility] ENDOTRACHEAL AIRWAY Oluwakayode LAPAROSCOPIC REMOVAL OR 2021-11-29 15:30:[address] [facility] REPOSITIONING OF Jessica PERITONEAL DIALYSIS CATHETER ABO AND RH CONFIRMATION 2021-11-29 13:47:[address] [facility] BY PROTOCOL [place] POC GLUCOSE 2021-11-29 12:40:00 [facility] TYPE AND SCREEN 2021-11-29 12:14:00 [facility] POC GLUCOSE 2021-11-29 12:07:00 [facility] POC GLUCOSE 2021-11-29 10:13:00 [facility] BASIC METABOLIC PANEL 2021-11-29 09:51:00 [facility] CBC WITH PLATELET AND 2021-11-29 09:51:00 [facility] DIFFERENTIAL ESTIMATED GFR 2021-11-29 09:51:00 [facility] POC GLUCOSE 2021-11-29 00:52[facility]W 2021-11-28 17:42:16 Annmarie Merlos spital XR CHEST 1 VW 2021-11-28 17:41:47 Annmarie Merlos spital COVID-19 QUALITATIVE 2021-11-28 17:29:00 [facility] 2021-11-28 17:19:00 Annmarie Merlos spichristian URINALYSIS SCREEN AND 2021-11-28 17:19:00 Annmarie Merlos [facility] MICROSCOPY, WITH REFLEX TO CULTURE ECG 12-LEAD 2021-11-28 16:54:47 Annmarie Merlos spital COMPREHENSIVE METABOLIC 2021-11-28 16:51:00 Annmarie Merlos [facility] PANEL CBC WITH PLATELET AND 2021-11-28 16:51:00 Annmarie Merlos [facility] DIFFERENTIAL PROTHROMBIN TIME WITH INR 2021-11-28 16:51:00 Annmarie Merlos [facility] PARTIAL THROMBOPLASTIN 2021-11-28 16:51:00 [facility] ([facility]TT[facility] ESTIMATED GFR 2021-11-28 16:51:00 Annmarie Merlos spital ECG ED PRELIMINARY 2021-11-28 16:34:[address] [facility] INTERPRETATION OPHTHALMOLOGY DIAGNOSTIC 2021-10-23 05:01:00 Doctor Unassigned, No [facility] TEST Name Medical Branch OU SPECTRALIS OCT MACULA, 2021-10-23 00:00:00 Sam Stuart [facility] BOTH EYES [facility]ion of tunnelled [facility] using fluoroscopic guidance Plan of Care Planned Activity Planned Date Details Comments Source Future Scheduled 2022-07-17 Pneumococcal Vaccine: [facility] Test 16:18:15 Pediatrics (0 to 5 Years) and At-Risk Patients (6 to 64 Years) (1 - PCV) [code = Pneumococcal Vaccine: Pediatrics (0 to 5 Years) and At-Risk Patients (6 to 64 Years) (1 - PCV)] Future Scheduled 2022-07-17 Hepatitis C screening [facility] Test 16:18:15 (procedure) [code = 727559746] Future Scheduled 2022-07-17 SHINGLES VACCINES (1 Met [facility] Test 16:18:15 of 2) [code = SHINGLES VACCINES (1 of 2)] Future Scheduled 2022-07-17 COLONOSCOPY SCREENING [facility] Test 16:18:15 [code = COLONOSCOPY SCREENING] Future Scheduled 2022-07-17 COVID-19 VACCINE (4 - [facility] Test 16:18:15 Booster for Pfizer series) [code = COVID-19 VACCINE (4 - Booster for Pfizer series)] Future Scheduled 2022-07-17 INFLUENZA VACCINE Method [facility] Test 16:18:15 [code = INFLUENZA VACCINE] Future Scheduled 2021-08-13 COVID-19 VACCINE (1) Met [facility] Test 03:55:50 [code = COVID-19 VACCINE (1)] Future Scheduled 2021-08-13 Hepatitis C screening [facility] Test 03:55:50 (procedure) [code = [id number]] Future Scheduled 2021-08-13 COLONOSCOPY SCREENING Me [facility] Test 03:55:50 [code = COLONOSCOPY SCREENING] Future Scheduled 2021-08-13 SHINGLES VACCINES (#1) [facility] Test 03:55:50 [code = SHINGLES VACCINES (#1)] Future Scheduled 2021-08-13 INFLUENZA VACCINE [facility] Test 03:55:50 [code = INFLUENZA VACCINE] Encounters Start End Encounter Admission Attending Care Care Encounter Source Date/Time Date/Time Type Type Clinicians Facility Department ID 2022-08-07 Outpatient [id number] Memoria 19:39:46 [id number] Marlon [id number] 2022-07-08 Outpatient [id number] Memoria 09:43:11 [id number] Marlon [id number] 2022-05-10 Outpatient [id number] Memoria 11:35:42 [id number] -[id number] Marlon [id number] 2021-05-29 Emergency [facility] [id number] Univers 07:45:16 [facility] 2019-10-01 Inpatient DANIEL CROCKER [facility] 13:35:35 2022-10-25 2022-10-25 Outpatient R NICOLE JEAN BAPTISTE [facility] [id number] Univers 12:00:00 12:00:00 NICOLE JEAN BAPTISTE ity [facility] 2022-08-19 2022-08-19 Outpatient R KAVEH NAVARRO [facility] [id number] Univers 09:30:00 09:30:00 TOLU zurita [facility] 2022-08-18 2022-08-18 Outpatient R NICOLE JEAN BAPTISTE [facility] [id number] Univers 11:30:00 11:30:00 ITA NICOLE zurita [facility] 2022-07-30 2022-07-30 Orders Doctor DANIEL 1.2.840.114 [id number] Univers 00:00:00 00:00:00 Only Unassigned, JESUSITA 350.1.13.10 ity of [place] [facility] 4.2.7.2.686 Igor as [phone] [facility] 009 Branch 2022-07-16 2022-07-16 Orders Doctor DANIEL 1.2.840.114 [id number] Univers 00:00:00 00:00:00 Only Unassigned, JESUSITA 350.1.13.10 ity of [place] [facility] 4.2.7.2.686 Igor as [phone] [place] [address] Branch 2022-07-08 2022-07-08 Outpatient R KAVEH BREWSTERAN [facility] [id number] Univers 09:45:00 12:07:11 CALIXTOMICHELLE zurita [facility] 2022-07-08 2022-07-08 [facility] 1.2.931.113 [id number] Univers 09:45:00 10:00:00 Visit Tolu Berry MULTISPEC 350.1.13.10 ity of [place]2.686 [place] [phone] [facility] [place] [address] Branch [facility] 2022-07-08 2022-07-08 Orders Doctor SANCHEZ 1.2.840.114 [id number] Univers 00:00:00 00:00:00 Only Unassigned, JESUSITA 350.1.13.10 ity of [place] [facility] 4.2.7.2.686 Igor as [phone] [facility] 009 Branch 2022-07-02 2022-07-02 [facility] 1.2.840.114 [id number] Univers 00:00:00 00:00:00 [facility] MULTISPEC 350.1.13.10 ity of [place] [id number] [address] DIABETES CLINIC 2022-07-01 2022-07-01 Orders Doctor DANIEL 1.2.840.114 [id number] Univers 00:00:00 00:00:00 Only Unassigned, JESUSITA 350.1.13.10 ity of [facility] 4.2.7.2.686 Igor as [phone] [address] 2022-06-22 2022-06-22 Outpatient R KARTHIK [facility] [id number] Univers 11:20:00 12:06:50 LOLA ity [facility] 2022-06-22 2022-06-22 Office [place], [facility] 1.2.840.114 [id number] Univers 11:20:00 12:06:50 Visit [facility] 350.1.13.10 ity of [place].686 [place] [id number] [address] DIABETES CLINIC 2022-05-10 2022-05-10 Outpatient R NICOLE JEAN BAPTISTE [facility] [id number] Univers 11:30:00 12:17:44 NICOLE JEAN BAPTISTE ity [facility] 2022-05-10 2022-05-10 Office Nicole Jean Baptiste [facility] 1.2.840.114 [id number] Univers 11:30:00 12:17:44 Visit HEALTH 350.1.13.10 it y of [place] 4.2.7.2.686 Igor as PAUL?BLEA [phone] [address] MEDICAL OFFICE BUILDING 2022-05-05 2022-05-05 Outpatient R DAMON [facility] [id number] Univers 10:00:00 10:48:27 AISMalika ity [facility] 2022-05-05 2022-05-05 [facility] 1.2.840.114 [id number] Univers 10:00:00 10:48:27 Visit [facility] 350.1.13.10 ity of [place] 4.2.7.2.686 Igor as CENTER [id number] [facility] [place] 136 Branch DIABETES CLINIC 2022-05-05 2022-05-05 Orders Doctor DANIEL 1.2.840.114 [id number] Univers 00:00:00 00:00:00 Only Unassigned, JESUSITA 350.1.13.10 [facility] 4.2.7.2.686 Igor as [phone] [facility] 009 Branch 2022-02-15 2022-02-15 Outpatient R NICOLE JEAN BAPTISTE [facility] [id number] Univers 13:00:00 13:00:00 NICOLE JEAN BAPTISTE ity of [facility] 2022-01-06 2022-01-06 [facility] 1.2.840.1 [id number] Methodi 05:46:00 10:35:00 Encounter Mario Chambers 43751.1.[address] 3.430.2.7 Hospit a .3.743312 l .8 2022-01-06 2022-01-06 [facility], 1.2.840.1 [id number] Methodi 07:30:00 09:00:00 Mario Chambers 55320.1.1 863 s t 3.430.2.7 Hospit a .3.400458 l .8 2022-01-06 2022-01-06 Anesthesia Tony Arias 1.2.8 40.1 [id number] Methodi 07:30:00 08:55:00 Event Lizeth aGrrido 98237.1.[address] 3.430.2.7 Hospit a .3.391421 l .8 2022-01-06 2022-01-06 Outpatient [facility] [id number] [place] 00:00:00 00:00:00 MARIO Heath [facility] 2022-01-05 2022-01-05 [facility]miss [facility], 1.2.840.1 [id number] Methodi 10:00:00 11:00:00 ion Mario Melendez. 19994.1.1 280 s t Testing 3.430.2.7 Hospit a .3.905380 l .8 2022-01-05 2022-01-05 Outpatient SRAVANTHI [facility] [id number] [place] 00:00:00 00:00:00 MARIO [address] 2022-01-04 2022-01-04 Travel 1.2.840.1 1.2.792.191 [id number] Methodi 00:00:00 00:00:[address] 3.430.2.7 0.2.7.3.698 Ho spita .3.657237 084.8 l .8 2022-01-04 2022-01-04 Prep for Lynch, 1.2.840.1 [id number] Methodi 00:00:00 00:00:00 [place] [address].1.[address] 3.430.2.7 Hospit a .3.290553 l .8 2021-11-30 2021-12-29 Outpatient DE [facility] [address] [facility] 11:00:00 23:59:00 ADELITA QUINN 2021-11-02 2021-12-01 Outpatient DE [facility] [id number] 11:00:00 23:59:00 ADELITA QUINN 2021-11-28 2021-11-29 Emergency Annmarie Weems 1.2.840.1 [id number] Methodi 11:33:00 18:03:00 Gustavo Garza 36580.1.[address] 3.430.2.7 Hospit a .3.896422 l .8 2021-11-29 2021-11-29 Anesthesia Pamela 1.2.840.1 [id number] Methodi 10:30:00 11:45:00 Event Rene 20433.1.[address] [place] 3.430.2.7 Ho spita .3.622933 l .8 2021-11-29 2021-11-29 Surgery [place], 1.2.840.1 [id number] Methodi 09:00:00 10:10:[address] Jessica 3.430.2.7 Hospit a .3.603632 l .8 2021-11-28 2021-11-29 Outpatient GUSTAVO GARZA [facility] [id number] [place] 00:00:00 00:00:[address] 2021-11-28 2021-11-28 Travel 1.2.840.1 1.2.050.158 [id number] Methodi 00:00:00 00:00:[address] 3.430.2.7 0.2.7.3.698 Ho spita .3.799281 084.8 l .8 2021-10-23 2021-10-23 Outpatient R [facility] [id number] Univers 09:45:00 10:37:50 AISHAT ity [facility] 2021-10-23 2021-10-23 Office [facility] 1.2.840.114 [id number] Univers 09:45:00 10:37:50 Visit [facility] 350.1.13.10 ity [facility] 4.2.7.2.686 Igor as CENTER [id number] [facility] [place] [address] Branch DIABETES CLINIC 2021-10-23 2021-10-23 Outpatient R [facility] [id number] Univers 09:45:00 09:45:00 AISHAT ity [facility] 2021-10-23 2021-10-23 Orders Doctor SANCHEZ [id number] [facility] 00:00:00 00:00:00 Only Unassigned, JESUSITA [id number] [facility] [id number] Igor as [phone] [place] [address] [address] 2021-09-14 2021-10-13 Outpatient DE [facility] [id number] [facility] 11:00:00 23:59:00 ADELITA QUINN 2021-09-21 2021-09-21 [facility] [id number] Univers 13:30:00 14:00:00 Visit [place] [facility] [id number] y angy [place] [id number] Igor as PAUL?BLEA [phone] [facility] [address] MEDICAL OFFICE [facility] 2021-09-21 2021-09-21 Outpatient R LIZA [facility] [id number] Univers 13:30:00 13:30:00 [facility] 2021-09-21 2021-09-21 [facility] 1035 [id number] Univers 13:30:00 13:30:00 [facility] 2021-08-10 2021-09-08 Outpatient DE [facility] 9618 [facility] 11:00:00 23:59:00 ADELITA QUINN 2021-07-01 2021-07-31 OP nullFlavo Transplant [id number] Memoria 17:00:00 05:59:00 Transplant r Center 17 [facility] 2021-07-01 2021-07-[address] [facility] 11:00:00 23:59:00 ADELITA QUINN 2021-06-02 2021-07-02 OP nullFlavo Transplant [id number] Memoria 16:00:00 05:59:00 Transplant r Center 16 [facility] Pre 2021-06-02 2021-07-01 Outpatient DE MHHH [facility] 9616 [facility]H 11:00:00 23:59:00 ADELITA QUINN 2021-04-07 2021-05-07 OP nullFlavo Transplant [id number] Memoria 16:00:00 04:59:00 Transplant r Center 15 [facility] Pre 2021-04-07 2021-05-06 Outpatient DE M[facility] HH 9615 MHH 11:00:00 23:59:00 ADELITA QUINN 2021-05-05 2021-05-05 Bag End Sewer Lab, Ang - Db [facility] 1.2.840.1 14 [id number] Univers 08:04:18 08:19:18 Visit Liza [facility] 350.1.13.10 ity of [place] 4.2.7.2.686 Igor as Paul?Blea [phone] Il georgettemorgan vero 353 [facility] Office [facility] 2021-05-05 2021-05-05 Out[facility] [id number] Univers 08:15:00 08:15:00 [facility] 2021-05-04 2021-05-04 Office [facility] 1.2.840.114 [id number] Univers 12:05:21 12:35:05 Visit [facility] 350.1.13.10 it y of [place] 4.2.7.2.686 Igor as Paul?Blea [phone] Il alli [facility] 220 [facility] Office [facility] 2021-05-04 2021-05-04 Out[facility] 1035 [id number] Univers 12:00:00 12:00:00 [facility] 2021-05-04 2021-05-04 Orders Doctor DANIEL 1.2.840.114 [id number] Univers 00:00:00 00:00:00 Only Unassigned, JESUSITA 350.1.13.10 ity of [place] [facility] 4.2.7.2.686 Igor as [phone] [facility] 009 Branch 2021-04-01 2021-04-01 [facility] 1.2.840.114 [id number] Univers 14:10:47 15:45:12 Visit [facility] 350.1.13.10 ity of [place] 4.2.7.2.686 Igor as SILVER [phone] [facility] [place] [address] Branch [facility] 2021-04-01 2021-04-01 [facility] [id number] Univers 14:15:00 14:15:00 AIST ity [facility] 2021-04-01 2021-04-01 Orders Doctor SANCHEZ 1.2.840.114 [id number] Univers 00:00:00 00:00:00 Only Unassigned, JESUSITA 350.1.13.[address] [place] [facility] 4.2.7.2.686 Igor as [phone] [address] 2021-01-30 2021-03-01 OP nullFlavo Transplant [id number] Memoria 16:00:00 04:59:00 Transplant r Center 14 [facility] 2021-01-30 2021-02-28 Outpatient DE MHHH M[facility] 9614 MHHH 11:00:00 23:59:00 ADELITA QUINN 2020-12-30 2021-01-29 OP nullFlavo Transplant [id number] Memoria 16:00:00 04:59:00 Transplant r Center 13 [facility] 2020-12-30 2021-01-28 Outpatient DE MHHH M[facility] 9613 MHH 11:00:00 23:59:00 ADELITA QUINN 2020-12-04 2020-12-11 OP nullFlavo Transplant [id number] Memoria 16:00:00 04:59:00 Transplant r Center 12 [facility] 2020-12-04 2020-12-10 Outpatient DE MHHH MHH 9612 MHH 11:00:00 23:59:00 ADELITA QUINN 2020-12-10 2020-12-10 Telephone STELLA De Jesus 1.2.840.114 [id number] 00:00:00 00:00:00 Colten Hart 350.1.13.10 [place] 4.2.7.2.686 Professio [phone] [address] 2020-12-10 2020-12-10 Orders Doctor SANCHEZ 1.2.840.114 [id number] 00:00:00 00:00:00 Only Unassigned, JESUSITA 350.1.13.10 [facility] 4.2.7.2.686 [phone] [facility] 2020-12-10 2020-12-10 [facility] 1.2.840.114 [id number] Univers 00:00:00 00:00:00 Colten Tanner 350.1.13.10 i ty [place] [phone] Il dical nal 220 [facility] 2020-12-10 2020-12-10 Orders Doctor DANIEL 1.2.840.114 [id number] Univers 00:00:00 00:00:00 Only Unassigned, JESUSITA 350.1.13.[address] ity [place] [facility] 4.2.7.2.686 Igor as [phone] [facility] south [address] [place] [address] 2020-12-09 2020-12-09 Outpatient [facility] [id number] eClinic 11:45:00 11:45:00 [facility] alWork s Podiatry Podiatry [facility] 2020-10-09 2020-11-08 OP nullFlavo Transplant [id number] Memoria 17:00:00 04:59:00 Transplant r [place] 11 l [facility] 2020-10-09 2020-11-07 Outpatient DE [facility] 9611 [facility] 11:00:00 23:59:00 ADELITA QUINN 2020-11-03 2020-11-03 Outpatient R LIZA [facility] [id number] Univers 13:00:00 13:00:00 [facility] 2020-10-11 2020-10-11 Patient Salvatore [facility] 1.2.840.114 [id number] Univers 00:00:00 00:00:00 Outreach [place] [facility] 350.1.13.10 i ty of [place] C[place].2.[place] [phone] Il dical [address] 2020-10-09 2020-10-09 [facility]phone [facility] 1.2.840.114 [id number] Univers 00:00:00 00:00:00 Colten Tanner 350.1.13.10 i ty of [place] [phone] Me dical nal 220 [facility] 2020-10-09 2020-10-09 Orders Doctor DANIEL 1.2.840.114 [id number] Univers 00:00:00 00:00:00 Only Unassigned, JESUSITA 350.1.13.10 ity of [place] [facility] 4.2.7.2.686 Igor as [phone] [address] 2020-09-02 2020-09-29 Outpatient DE [facility] 9610 [facility] 08:00:00 23:59:00 ADELITA QUINN 2020-09-23 2020-09-23 Telephone [facility] 1.2.840.114 [id number] Univers 00:00:00 00:00:00 Colten Hart 350.1.13.10 i ty [facility] [place].2.7.2.[place] [phone] Il dical nal [address] [place] [address] 2020-09-23 2020-09-23 Orders Doctor DANIEL 1.2.840.114 [id number] Univers 00:00:00 00:00:00 Only Unassigned, JESUSITA 350.1.13.[address] [place] [facility] 4.2.7.2.686 Igor as [phone] [address] 2020-09-17 2020-09-17 Out[facility] [id number] Univers 13:30:00 13:30:00 AISHAT ity of [facility] 2020-09-11 2020-09-11 Outpatient [facility] [id number] eClinic 14:22:00 14:22:00 [facility] alWork s Podiatry Podiatry [facility] 2020-09-05 2020-09-05 Outpatient [place] [id number] eClinic 10:45:00 10:45:00 [facility] alWork s Podiatry Podiatry [facility] 2020-08-04 2020-09-03 OP nullFlavo Transplant [id number] Memoria 17:00:00 05:59:00 Transplant r [place] 09 l [facility] 2020-08-04 2020-09-02 Outpatient DE [facility] [id number] [facility] 11:00:00 23:59:00 ADELITA QUINN 2020-08-25 2020-08-25 Orders Doctor DANIEL 1.2.840.114 [id number] Univers 00:00:00 00:00:00 Only Unassigned, JESUSITA 350.1.13.[address] [place] [facility] 4.2.7.2.686 Igor as [phone] [address] 2020-08-13 2020-08-13 [facility] 1.2.840.114 [id number] Univers 00:00:00 00:00:00 Colten Hart 350.1.13.10 i ty [place] [phone] Il dic[address] 2020-08-06 2020-08-06 Telephone [facility] 1.2.840.114 [id number] Univers 00:00:00 00:00:00 Colten Hart 350.1.13.10 i ty of [place]2.7.2.[place] Profess[place] [phone] Il dical nal [address] [place] [address] 2020-08-05 2020-08-05 Outpatient [facility] [id number] eClinic 11:15:00 11:15:00 [facility] s Podiatry Podiatry [facility] 2020-08-04 2020-08-04 Office [facility] 1.2.840.114 [id number] Univers 12:15:14 13:09:43 Visit Colten Hart 350.1.13.10 i ty of [place] 4[place]2.7.2.[place] Profess[place] [phone] Il dic[address] 2020-08-04 2020-08-04 Out[facility] 1029 [id number] Univers 12:00:00 12:00:00 COLTEN zurita [facility] 2020-07-02 2020-07-02 Outpatient [facility] [id number] eClinic 14:45:00 14:45:00 [facility] s Podiatry Podiatry [facility] 2020-06-02 2020-06-02 Outpatient R LIZA, [facility] [id number] Univers 14:00:00 14:00:00 COLTEN ity [facility] 2020-05-31 2020-05-31 Telephone DANIEL Caballero 1.2.406.622 [id number] Univers 00:00:00 00:00:00 Omaira MC 350.1.13.[address] [facility] 4.2.7.2.686 Igor as [phone] [facility] 019 Felt 2020-05-30 2020-05-30 Laboratory Only, Adc Test [facility] 1.2.840. 114 [id number] Univers 09:36:29 09:51:29 Only Keyur Naranjo 350.1.13.10 ity [facility] [place].2.7.2.[place] [phone] [facility] 353 [address] 2020-05-30 2020-05-30 Outpatient R [facility] [id number] Univers 09:45:00 09:45:00 [facility] 2020-04-30 2020-05-30 OP [facility] [id number] Memoria 14:21:00 04:59:00 Transplant r Millen 08 l [facility] 2020-04-30 2020-05-29 Outpatient [facility] 9608 [facility] 09:21:00 23:59:00 TIA AVENDAÑO 2020-05-19 2020-05-19 Outpatient spring [id number] eClinic 14:30:00 14:30:00 [facility] Podiatry Podiatry [facility] 2020-05-19 2020-05-19 Telephone [facility] 1.2.840.114 [id number] Univers 00:00:00 00:00:00 Colten Hart 350.1.13.10 i ty [facility] 4.2.7.2.686 [facility] Hospital[facility] s [facility] [phone] Il dical [address] 2020-05-05 2020-05-05 Outpatient spring [id number] eClinic 14:15:00 14:15:00 [facility] Podiatry Podiatry [facility] 2020-04-02 2020-04-02 Outpatient R LUIS M [facility] [id number] Univers 15:00:00 15:00:00 TONIGINO ity [facility] 2020-03-01 2020-03-30 Outpatient DE [facility] 9607 [facility] 08:00:00 23:59:00 ADELITA QUINN 2020-03-19 2020-03-19 Office [facility] 1.2.840.114 [id number] Univers 14:21:14 14:36:14 Visit [facility] 350.1.13.10 ity of [place] 4.2.7.2.686 Igor as CENTER [phone] [facility] AND [address] DIABETES CLINIC 2020-03-19 2020-03-19 Outpatient [facility] [id number] Univers 14:30:00 14:30:00 [facility]ika [facility] 2020-03-19 2020-03-19 Orders Doctor DANIEL 1.2.840.114 [id number] Univers 00:00:00 00:00:00 Only Unassigned, JESUSITA 350.1.13.10 ity of [place] [facility] 4.2.7.2.686 Igor as [phone] [facility] 009 Branch 2020-02-21 2020-02-21 Transition Allie Aaron 1.2.840.114 [id number] Univers 00:00:00 00:00:00 of Care Yesy Reese 350.1.13.10 it y of [place]2.7.2.[place] [phone] [facility] 403 Branch 2020-02-18 2020-02-20 [facility] Dick Mackenzie 1.2.840.11 [id number] Univers 15:30:19 22:45:00 Encounter Misti Ramirez 350.1.13.10 ity of [facility] 4.2.7.2.686 Igor as [phone] [facility] 091 Branch 2020-02-14 2020-02-14 Outpatient R KAVEH NAVARRO, [facility] [id number] Univers 10:15:00 10:15:00 TOLU ity [facility] 2020-02-14 2020-02-14 Telephone Damon, [facility] 1.2.840.114 [id number] Univers 00:00:00 00:00:00 Aishat Y 350.1.13.10 it y of [place]2.[place] [phone] [facility] [address] 2020-02-14 2020-02-14 Telephone [facility] 1.2.840.114 [id number] Univers 00:00:00 00:00:00 Colten [place] 350.1.13.10 i ty of [place] [phone] Il dical nal 220 [facility] 2020-02-05 2020-02-05 Office [facility] 1.2.840.114 [id number] Univers 13:48:45 15:27:36 Visit Oahnneena Y 350.1.13.10 it y of [place].2.[place] [phone] [facility]. [address] [place] [address] 2020-02-05 2020-02-05 Outpatient [facility] [id number] Univers 14:00:00 14:00:00 [facility] 2020-02-04 2020-02-04 Telephone Kaveh [facility] 1.2.840.114 [id number] Univers 00:00:00 00:00:00 Jasavannahar F Y 350.1.13.10 i ty of NATIONAL 4.2.7.2.686 Igor as BANK [phone] [employer] [address] 2020-01-28 2020-01-28 Office [facility] 1.2.840.114 [id number] Univers 15:07:06 15:37:06 Visit Colten Hart 350.1.13.10 i ty of [place].2.[place] Profess[place] [phone] Il dical nal 220 [facility] 2020-01-28 2020-01-28 Outpatient [facility] [id number] Univers 15:30:00 15:30:00 [facility] Branch 2020-01-28 2020-01-28 Orders Doctor DANIEL 1.2.840.114 [id number] Univers 00:00:00 00:00:00 Only Unassigned, JESUSITA 350.1.13.[address] [place] [facility] 4.2.7.2.686 Igor as [phone] [facility] 009 Branch 2020-01-25 2020-01-25 Telephone [facility] 1.2.531.846 [id number] Univers 00:00:00 00:00:00 Jimmie Hart 350.1.13.10 i ty of [place].2.[place] Profess[place] [phone] Me dical nal 220 [facility] 2020-01-24 2020-01-24 Outpatient spring [id number] eClinic 15:00:00 15:00:00 [facility] alWork s Podiatry [facility] 2019-11-30 2019-11-30 Outpatient DE [facility] [id number] [facility] 15:00:00 15:00:00 ADELITA QUINN 2019-11-12 2019-11-12 Telephone Kaveh Navarro [facility] 1.2.840.114 [id number] Univers 00:00:00 00:00:00 Tolu Berry MULTISPEC 350.1.13.10 ity of [facility] 4.2.7.2.686 [place] CENTER [phone] [facility] AND [place] 136 [address] DIAB[facility]ES [facility]IN[facility] 2019-10-08 2019-11-07 OP nullFlavo Transplant [id number] Memoria 16:36:00 04:59:00 Transplant r Center 06 l Clinic - [facility] 2019-10-23 2019-10-23 Outpatient R LUIS M [facility] [id number] Univers 09:30:00 09:30:00 TONIONG ity [facility] 2019-10-13 2019-10-14 Institutio nullFlavo [facility] [id number] Memoria 18:12:00 04:59:00 n Patient r Outpatient 00 l Imaging [facility] 2019-10-08 2019-10-08 Outpatient DE [facility] 9606 [facility] 11:36:00 11:36:00 ADELITA QUINN 2019-09-07 2019-09-07 Office Kaveh Navarro [facility] 1.2.914.963 [id number] Univers 13:14:14 14:40:38 Visit Tolu Berry MULTISPEC 350.1.13.10 ity angy [place] 4.2.7.2.686 [facility] [phone] [facility] [place] [address] Branch [facility] 2019-09-06 2019-09-06 Outpatient DE MHHH MHHH [id number] MHHH 15:00:00 23:59:00 ADELITA QUINN 2019-07-04 2019-08-03 OP nullFlavo Transplant [id number] Memoria 14:20:00 05:59:00 Transplant r Center 00 l [facility] 2019-07-04 2019-07-04 Outpatient MHHH MHHH [id number] MHHH 08:20:00 08:20:00 2019-06-04 2019-06-04 Outpatient MHHH MHHH [id number] MHHH 15:00:00 15:00:00 2019-04-10 2019-05-10 OP nullFlavo [facility] [id number] Memoria 18:22:00 04:59:00 Transplant r Millen 05 l [facility] 2019-04-17 2019-04-18 Outpatient nullFlavo [facility] [id number] Memoria 16:04:00 04:59:00 r Millen 04 [facility] 2019-04-17 2019-04-17 Outpatient MHHH CAR [id number] MHHH 11:04:00 11:04:00 2019-04-10 2019-04-10 Outpatient MHHH CAR [id number] MHHH 13:22:00 13:22:00 2019-04-02 2019-04-02 Outpatient MHHH MHHH [id number] MHHH 15:00:00 15:00:00 2019-03-09 2019-03-09 Outpatient MHHH MHHH [id number] MHHH 15:00:00 15:00:00 2019-03-01 2019-03-01 Office Kaveh Navarro [facility] 1.2.850.800 [id number] Univers 09:37:17 10:39:48 Visit Tolu Berry MULTISPEC 350.1.13.10 ity of [place] 4.2.7.2.686 [facility] [phone] [facility] [place] [address] Branch DIABETES CLINIC 2019-02-22 2019-02-22 Outpatient [facility] [id number] MH 11:00:00 11:00:00 2019-02-05 2019-02-05 Outpatient MH MH [id number] MH 15:00:00 15:00:00 2019-01-08 2019-01-08 [id number] 15:00:00 15:00:00 2018-11-13 2018-12-13 OP nullFlavo Transplant [id number] Memoria 17:05:00 04:59:00 Transplant r [place] 04 l [facility] 2018-11-13 2018-11-13 Outpatient [facility] [id number] MH 12:05:00 12:05:00 2018-10-23 2018-10-23 Outpatient [facility] 9088 [facility] 15:00:00 15:00:00 2018-08-30 2018-08-31 Outpatient nullFlavo [facility] [id number] Memoria 21:00:00 05:59:00 r Millen 32 [facility] 2018-07-19 2018-07-20 Outpatient nullFlavo [facility] [id number] Memoria 21:00:00 05:59:00 r Millen 62 [facility] 2018-06-16 2018-06-17 Outpatient nullFlavo [facility] [id number] Memoria 21:00:00 05:59:00 r Millen 34 [facility] 2018-04-11 2018-05-11 Recurring nullFlavo Transplant [id number] Memoria 17:00:00 04:59:00 r [place] 03 [facility] 2024-07-31 2018-04-11 PreAdmit nullFlavo [facility] [id number] Memoria 18:30:00 17:30:00 r Millen 56 [facility] 2018-02-14 2018-03-16 OP nullFlavo [facility] [id number] Memoria 14:24:00 04:59:00 Transplant r Mill[place] 02 [facility] 2018-02-16 2018-02-17 Outpatient nullFlavo [facility] [id number] Memoria 13:42:00 04:59:00 r [facility]en [facility] 2018-02-16 2018-02-16 Outpatient [facility] [id number] Memoria 18:20:00 18:20:00 r Marlon 01 l [place] [facility] 2018-02-14 2018-02-14 Outpatient [facility] [id number] Memoria 16:00:00 16:00:00 r Marlon 03 l [facility] Marlon 2018-01-03 2018-02-02 OP [facility] [id number] Memoria 13:31:00 04:59:00 Transplant r Millen 01 l Clinic - Trans[facility] 2017-09-02 2017-09-02 Orders Doctor DANIEL 1.2.840.114 [id number] Univers 00:00:00 00:00:00 Only Unassigned, JESUSITA 350.1.13.10 [place]y [place] [facility] 4.2.7.2.686 Igor as [phone] [address] Results Test Description Test Time Test Comments Results Result Comments Source POCT HEMOGLOBIN A1C TEST 2022-05-10 16:42:00 Test Item Value Reference Range Interpretation Comme nts POCT HBA1C (test code = 4548-4) 6.3 % 4-6 A Lab Interpretation (test code = 07080-9) Abnormal [facility] HEMOGLOBIN A1C [id number] 16:42:00 Test Item Value Reference Range Interpretation Comments POCT HBA1C (test code = 4548-4) 6.3 % 4-6 A Lab Interpretation (test code = Abnormal 45402-6) [facility] [id number] 14:26:00 Test Item Value Reference Range Interpretation Comments POC glucose (test 82 mg/dL 65-99 Chair Maker N carmen: Grayson code = 15608-2) Lucinda Bailey D: [id number] able: RN Notified Sikh [facility] [id number] 12:22:01 Test Item Value Reference Range Interpretation Comments POC sodium (test code = 140 mmol/L 791-411 9041-0) POC potassium (test 3.9 mmol/L 3.5-5.0 code = 6298-4) POC glucose (test code 70 mg/dL 65-99 = 2339-0) POC creatinine (test 5.5 mg/dl 0.7-1.2 H Operato r Name: code = 18618-4) Elsy Forbes ID : [id number] POC hemoglobin (test 11.6 g/dL 14.0-18.0 L code = 718-7) POC hematocrit (test 34 % 41-51 L code = 4544-3) Lab Interpretation Abnormal (test code = 48360-6) [facility] [id number] 12:22:00 Test Item Value Reference Range Interpretation Comments Estimated GFR (test mL/min/1.73 m2 A Melvi hernández Units code = 83933-7) Interpretati onG1 >=90 Normal or highG 2 60-89 Mildly decrease dG3a 45-59 Mildly to moderately decr gpaolX8e 30-44 Moderatel y to severely decrea sedG4 15-29 Severely decreasedG5 <15 Kidney failureThe eGFR was calculated vivian reagan the Chronic Kidney Disease Epidemiology Collaboration ( CKD-EPI) equation. Interpretation is based on recommendati ons of the National dney [facility]-Kidn ey Disease Outcome s Quality Initiat cyndi (NKF-KDOQI) pub lished in 2013. Lab Interpretation Abnormal (test code = 49377-5) [facility] 12 [id number] 20:46:15 Test Item Value Reference Range Interpretation Comments Ventricular rate (test code = 253) Atrial rate (test code = 255) MA interval (test code = 266) QRSD interval (test code = 260) QT interval (test code = 264) QTC interval (test code = 265) P axis 1 (test code = 267) QRS axis 1 (test code = 268) T wave axis (test code = 270) EKG impression (test Normal sinus code = 273) rhythm-Low voltage QRS-Borderline ECG-In automated comparison with ECG of 08-SEP-2018 10:38,-No significant change was found- [facility] [id number] 18:34:00 Test Item Value Reference Range Interpretation Comments Urine culture (test SEE COMMENT Bacteriu erasmo screen code = 4173054) negative. Sikh FmcirlocWZTF-EnM-6 (COVID-19) RNA [Presence] in Respiratory specimen by SAMARA with probe [id number] 18:21:35 Test Item Value Reference Range Interpretation Comments SARS-CoV-2 (COVID-19) RNA Not detected [Presence] in Respiratory specimen by SAMARA with probe detection (test code = 28089-1) Whether patient is employed in a Unknown healthcare setting (test code = 49088-8) Whether the patient has symptoms Unknown related to condition of interest (test code = 81625-0) Whether the patient was Unknown hospitalized for condition of interest (test code = 48228-9) Whether the patient was admitted Unknown to intensive care unit (ICU) for condition of interest (test code = 36551-9) Whether patient resides in a Unknown congregate care setting (test code = 67780-2) status (test code = Unknown 83850-3) Date and time of symptom onset Unknown (test code = 41118-8) [facility] 19:01:39 Test Item Value Reference Range Interpretation Comments UA Color (test code = Light Yellow UA Color) *NA*(10/08/19 2:01 PM) [facility] AND [id number] 19:01:39 Test Item Value Reference Range Interpretation Comments UA Turbidity (test code = Clear (10/08/19 2:01 UA Turbidity) PM) [facility] AND [id number] 19:01:39 Test Item Value Reference Range Interpretation Comments UA Spec Grav (test code = UA Spec 1.011 1 Grav) [facility] AND [id number] 19:01:39 Test Item Value Reference Range Interpretation Comments UA pH (test code = UA pH) 5.0 1 5.0-8.0 [facility] AND [id number] 19:01:39 Test Item Value Reference Range Interpretation Comments UA Protein (test code = UA Negative mg/dL Protein) [facility] AND [id number] 19:01:39 Test Item Value Reference Range Interpretation Comments UA Glucose (test code = UA Negative mg/dL Glucose) [facility] AND [id number] 19:01:39 Test Item Value Reference Range Interpretation Comments UA Ketones (test code = UA Negative mg/dL Ketones) [facility] [id number] 19:01:39 Test Item Value Reference Range Interpretation Comments UA Bili (test code = Negative *NA*(10/08/19 UA Bili) 2:01 PM) [facility] [id number] 19:01:39 Test Item Value Reference Range Interpretation Comments UA Blood (test code = Negative (10/08/19 2:01 UA Blood) PM) [facility] [id number] 19:01:39 Test Item Value Reference Range Interpretation Comments UA Urobilinogen (test code = UA no gt 0.1-1.0 Urobilinogen) [facility] AND [id number] 19:01:39 Test Item Value Reference Range Interpretation Comments UA Nitrite (test code Negative (10/08/19 2:01 = UA Nitrite) PM) [facility] AND [id number] 19:01:39 Test Item Value Reference Range Interpretation Comments UA Leuk Est (test Negative (10/08/19 2:01 code = UA Leuk Est) PM) [facility] AND [id number] 19:01:39 Test Item Value Reference Range Interpretation Comments UA Sq Epi (test code = UA Sq Epi) Few /LPF [facility] AND [id number] 19:01:39 Test Item Value Reference Range Interpretation Comments UA WBC (test code = 1 See_Comment [Automa abel message] The UA WBC) system which ge nerated this result transmit abel reference range : <=5. The reference range was not used to interpr et this result as justin l/abnormal. [facility] [id number] 19:01:39 Test Item Value Reference Range Interpretation Comments UA RBC (test code = 1 See_Comment [Automa abel message] The UA RBC) system which ge nerated this result transmit abel reference range : <=2. The reference range was not used to interpr et this result as justin l/abnormal. [facility] AND [id number] 19:01:39 Test Item Value Reference Range Interpretation Comments UA Mucus (test code = UA Mucus) Few /LPF [facility] [id number] 19:01:39 Test Item Value Reference Range Interpretation Comments U Creatinine (test code = U 178.00 Creatinine) [facility]2020-03-09 19:01:39 Test Item Value Reference Range Interpretation Comments U Alb (test code = U Alb) 31.3 [facility]2020-03-09 19:01:39 Test Item Value Reference Range Interpretation Comments U Alb/Crea (test code = U Alb/Crea) 17.6 [facility]2020-03-09 19:01:39 Test Item Value Reference Range Interpretation Comments U Creatinine (test code = U 178.00 Creatinine) [facility]2020-03-09 19:01:39 Test Item Value Reference Range Interpretation Comments U Protein (test code = U Protein) 14.7 [facility]2020-03-09 19:01:39 Test Item Value Reference Range Interpretation Comments U Prot/Creat (test code = U 0.08 1 Prot/Creat) [facility]2020-03-09 19:01:39 Test Item Value Reference Range Interpretation Comments U Creatinine (test code = U 178.00 Creatinine) [facility]2020-03-09 19:01:39 Test Item Value Reference Range Interpretation Comments U Alb (test code = U Alb) 31.3 [facility]2020-03-09 19:01:39 Test Item Value Reference Range Interpretation Comments U Alb/Crea (test code = U Alb/Crea) 17.6 [facility]2020-03-09 16:44:00 Test Item Value Reference Range Interpretation Comments Ferritin Lvl (test code = Ferritin Lvl) 445 22-275 [facility]2020-03-09 16:44:00 Test Item Value Reference Range Interpretation Comments Iron (test code = Iron) 53 45-160 [facility]2020-03-09 16:44:00 Test Item Value Reference Range Interpretation Comments TIBC (test code = TIBC) 208 228-428 [facility]2020-03-09 16:44:00 Test Item Value Reference Range Interpretation Comments UIBC (test code = UIBC) 155 110-370 [facility]2020-03-09 16:44:00 Test Item Value Reference Range Interpretation Comments % Satur Fe (test code = % Satur Fe) 25 12-57 [place] 504110-03-09 16:44:00 Test Item Value Reference Range Interpretation Comments Glucose Lvl (test code = Glucose Lvl) 115 70-99 [place] 504110-03-09 16:44:00 Test Item Value Reference Range Interpretation Comments BUN (test code = BUN) 64 7-22 [facility]2020-03-09 16:44:00 Test Item Value Reference Range Interpretation Comments Creatinine Lvl (test code = Creatinine 4.73 0.50-1.40 Lvl) [facility]2020-03-09 16:44:00 Test Item Value Reference Range Interpretation Comments Sodium Lvl (test code = Sodium Lvl) 139 135-145 [place] 504110-03-09 16:44:00 Test Item Value Reference Range Interpretation Comments Potassium Lvl (test code = Potassium 3.4 3.5-5.1 Lvl) [facility]2020-03-09 16:44:00 Test Item Value Reference Range Interpretation Comments Chloride Lvl (test code = Chloride Lvl) 101 95-109 [facility]2020-03-09 16:44:00 Test Item Value Reference Range Interpretation Comments CO2 (test code = CO2) 28 24-32 [facility]2020-03-09 16:44:00 Test Item Value Reference Range Interpretation Comments Calcium Lvl (test code = Calcium Lvl) 7.7 8.5-10.5 [facility]2020-03-09 16:44:00 Test Item Value Reference Range Interpretation Comments Total Protein (test code = Total 7.0 6.4-8.4 Protein) [facility]2020-03-09 16:44:00 Test Item Value Reference Range Interpretation Comments Albumin Lvl (test code = Albumin Lvl) 3.5 3.5-5.0 [place] 504110-03-09 16:44:00 Test Item Value Reference Range Interpretation Comments ALT (test code = ALT) 15 See_Comment [Auto mated message] The system which ge nerated this result transmit abel reference range : <=65. The reference range was not used to interpr et this result as justin l/abnormal. [facility] [id number] 16:44:00 Test Item Value Reference Range Interpretation Comments AST (test code = AST) 15 See_Comment [Auto mated message] The system which ge nerated this result transmit abel reference range : <=37. The reference range was not used to interpr et this result as justin l/abnormal. [facility] [employer] [id number] 16:44:00 Test Item Value Reference Range Interpretation Comments Alk Phos (test code = Alk Phos) 119 39-136 [facility] [employer] [id number] 16:44:00 Test Item Value Reference Range Interpretation Comments Bili Total (test code = Bili Total) 0.4 0.2-1.3 [facility] [employer] [id number] 16:44:00 Test Item Value Reference Range Interpretation Comments AGAP (test code = AGAP) 13.4 10.0-20.0 [facility] [employer] [id number] 16:44:00 Test Item Value Reference Range Interpretation Comments B/C Ratio (test code = B/C Ratio) 14 1 6-25 [facility] [employer] [id number] 16:44:00 Test Item Value Reference Range Interpretation Comments Globulin (test code = Globulin) 3.5 2.7-4.2 [facility] [employer] [id number] 16:44:00 Test Item Value Reference Range Interpretation Comments A/G Ratio (test code = A/G Ratio) 1.0 1 0.7-1.6 [facility] HospitalCollegeWikis [id number] 16:44:00 Test Item Value Reference Range Interpretation Comments eGFR (test code = eGFR) 13 [facility] [employer] [id number] 16:44:00 Test Item Value Reference Range Interpretation Comments Magnesium Lvl (test code = Magnesium 1.9 1.8-2.4 Lvl) [facility] [employer] [id number] 16:44:00 Test Item Value Reference Range Interpretation Comments Phosphorus (test code = Phosphorus) 4.0 2.5-4.5 [facility] [employer] [id number] 16:44:00 Test Item Value Reference Range Interpretation Comments Uric Acid (test code = Uric Acid) 10.7 3.8-8.0 [facility] [employer] [id number] 16:44:00 Test Item Value Reference Range Interpretation Comments Vitamin D, 25-OH, Total (test code = 21.6 30.0-100.0 Vitamin D, 25-OH, Total) [facility] HospitalCHE[facility] [id number] 16:44:00 Test Item Value Reference Range Interpretation Comments Creatinine Lvl (test code = Creatinine 4.72 0.50-1.40 Lvl) [facility] [id number] 16:44:00 Test Item Value Reference Range Interpretation Comments eGFR (test code = eGFR) 13 [facility]annDR[facility] [id number] 16:44:00 Test Item Value Reference Range Interpretation Comments Phencyclidine Scr (test code = Negative Phencyclidine Scr) [facility] [id number] 16:44:00 Test Item Value Reference Range Interpretation Comments Aixa Scr (test code = Aixa Scr) Negative [facility] [id number] 16:44:00 Test Item Value Reference Range Interpretation Comments Cannab Scr (test code = Cannab Scr) Negative [facility] [id number] 16:44:00 Test Item Value Reference Range Interpretation Comments Methadone Scr (test code = Methadone Negative Scr) [facility]annDR[facility] [id number] 16:44:00 Test Item Value Reference Range Interpretation Comments Cocaine Scr (test code = Cocaine Negative Scr) [facility] [id number] 16:44:00 Test Item Value Reference Range Interpretation Comments Benzodiaz Scr (test code = Benzodiaz Negative Scr) [facility] [id number] 16:44:00 Test Item Value Reference Range Interpretation Comments Amph Scr (test code = Amph Scr) Negative [facility] [id number] 16:44:00 Test Item Value Reference Range Interpretation Comments Opiate Scr (test code = Opiate Scr) Negative [facility] [id number] 16:44:00 Test Item Value Reference Range Interpretation Comments 6-Acetylmor Scr (test code = Negative 6-Acetylmor Scr) [facility] Hos[id number] 16:44:00 Test Item Value Reference Range Interpretation Comments PT (test code = PT) 13.7 s 12.0-14.7 [facility] Ho[id number] 16:44:00 Test Item Value Reference Range Interpretation Comments INR (test code = INR) 1.05 1 0.85-1.17 [facility] HospitalOjbyhzgRBLQQESRUQ9189-48-90 16:44:00 Test Item Value Reference Range Interpretation Comments PTT (test code = PTT) 34.0 s 22.9-35.8 [facility] HospitalXozraruWSPMYXKHQE7730-70-80 16:44:00 Test Item Value Reference Range Interpretation Comments WBC (test code = WBC) 6.2 3.7-10.4 [facility] HospitalKyljkefZJHPVVCAHU2184-28-25 16:44:00 Test Item Value Reference Range Interpretation Comments RBC (test code = RBC) 4.11 4.70-6.10 [facility] HospitalNzbcaueWWXMDVYCFQ3125-24-16 16:44:00 Test Item Value Reference Range Interpretation Comments Hgb (test code = Hgb) 12.4 14.0-18.0 [facility] HospitalHqauasgUITFQKOQSJ4412-85-78 16:44:00 Test Item Value Reference Range Interpretation Comments Hct (test code = Hct) 36.1 42.0-54.0 [facility] HospitalBmeeayxWVYASQQJTG9425-40-17 16:44:00 Test Item Value Reference Range Interpretation Comments MCV (test code = MCV) 87.7 80.0-94.0 [facility] HospitalNdiaiflFRFSMRVKCH6197-92-40 16:44:00 Test Item Value Reference Range Interpretation Comments MCH (test code = MCH) 30.2 pg 27.0-31.0 [facility] HospitalZxgwxkfDCNFAIRHRT9291-41-30 16:44:00 Test Item Value Reference Range Interpretation Comments MCHC (test code = MCHC) 34.4 32.0-36.0 [facility] HospitalPzjgngdCBAZCJVNMX5507-56-22 16:44:00 Test Item Value Reference Range Interpretation Comments RDW (test code = RDW) 13.5 11.5-14.5 [facility] HospitalQldetjcEOHWWWJHHS4808-12-35 16:44:00 Test Item Value Reference Range Interpretation Comments Platelet (test code = Platelet) 175 133-450 [facility] HospitalKgffijxVRFZDUDPXZ5549-22-17 16:44:00 Test Item Value Reference Range Interpretation Comments MPV (test code = MPV) 9.2 7.4-10.4 [facility] HospitalFikyzmaXFHCSCNIKF2349-64-93 16:44:00 Test Item Value Reference Range Interpretation Comments AT III Func (test code = AT III Func) 92 77-140 [facility] HospitalGzijqhlRCHMBPYNNL2694-81-80 16:44:00 Test Item Value Reference Range Interpretation Comments F5 Leiden PCR (test Negative (10/08/19 11:44 code = F5 Leiden PCR) AM) [facility] HospitalIhypillEAXDJMUAMU9034-84-07 16:44:00 Test Item Value Reference Range Interpretation Comments F5 Leiden Intrp (test code = F5 See note Leiden Intrp) [facility] HospitalXaczrzvPITGHCHFGE3385-63-13 16:44:00 Test Item Value Reference Range Interpretation Comments dRVV Ratio (test code = dRVV Ratio) 1.23 1 [facility] HospitalPwmnwxzSBFVRYVOPK8840-89-03 16:44:00 Test Item Value Reference Range Interpretation Comments Plt Neut Test (test code = Plt Neut Negative Test) [facility] HospitalRlegkmiJIZAAJAIZH8184-58-40 16:44:00 Test Item Value Reference Range Interpretation Comments Hex Phos N (test code Negative (10/08/19 11:44 = Hex Phos N) AM) [facility] HospitalVkwoydpAEPSIQORMM1207-01-37 16:44:00 Test Item Value Reference Range Interpretation Comments Lup Interp (test Negative for lupus code = Lup Interp) anticoagulant (prolonged dRVVT, negative hexagonal phospholipid neutralization, and negative Platelet Neutralization procedure). Thrombin Time is normal (15.9 sec) which rules out heparin as interference substance. CPT: 80758 [facility] HospitalJniomczVXCRFPUJTM5742-74-30 16:44:00 Test Item Value Reference Range Interpretation Comments F2 Mutation PCR (test Negative (10/08/19 11:44 code = F2 Mutation PCR) AM) [facility] HospitalGzmqiaeLUZIKMPXEX6765-88-42 16:44:00 Test Item Value Reference Range Interpretation Comments F2 Mut Interp (test code = F2 Mut See note Interp) [facility] HospitalCyxpepfOXCEXZAZEB2276-41-11 16:44:00 Test Item Value Reference Range Interpretation Comments Protein C Func (test code = Protein C 77 72-147 Func) [facility] HospitalJskbwwyFTVUIAJIWM1180-11-69 16:44:00 Test Item Value Reference Range Interpretation Comments Protein S Func (test code = Protein S 90 54-137 Func) [facility] HospitalUfwjxrhTXJFTJJBTT9325-77-03 16:44:00 Test Item Value Reference Range Interpretation Comments Segs (test code = Segs) 70.5 45.0-75.0 [facility] HospitalLrrjvirXJZWEPRHGK0702-82-01 16:44:00 Test Item Value Reference Range Interpretation Comments Lymphocytes (test code = Lymphocytes) 18.3 20.0-40.0 [place] [address]-03-09 16:44:00 Test Item Value Reference Range Interpretation Comments Monocytes (test code = Monocytes) 6.7 2.0-12.0 [place] [address]-03-09 16:44:00 Test Item Value Reference Range Interpretation Comments Eosinophils (test code = 3.5 See_Comment [A utomated message] The Eosinophils) system which ge nerated this result tra nsmitted reference range : <=4.0. The reference r mesha was not used to int erpret this result as normal/abnormal . [place] [address]-03-09 16:44:00 Test Item Value Reference Range Interpretation Comments Basophils (test code = 1.0 See_Comment [Aut omated message] The Basophils) system which ge nerated this result tra nsmitted reference range : <=1.0. The reference r mesha was not used to int erpret this result as normal/abnormal . [place] 907380-03-09 16:44:00 Test Item Value Reference Range Interpretation Comments Neutrophils # (test code = Neutrophils 4.3 1.5-8.1 #) [place] [address]-03-09 16:44:00 Test Item Value Reference Range Interpretation Comments Lymphocytes # (test code = Lymphocytes 1.1 1.0-5.5 #) [place] 907380-03-09 16:44:00 Test Item Value Reference Range Interpretation Comments Monocytes # (test code 0.4 See_Comment [Aut omated message] The = Monocytes #) system which generated this result tra nsmitted reference range : <=0.8. The reference r mesha was not used to int erpret this result as normal/abnormal . [place] 907380-03-09 16:44:00 Test Item Value Reference Range Interpretation Comments Eosinophils # (test code 0.2 See_Comment [A utomated message] The = Eosinophils #) system whic h generated this result tra nsmitted reference range : <=0.5. The reference r mesha was not used to int erpret this result as normal/abnormal . [place] 907380-03-09 16:44:00 Test Item Value Reference Range Interpretation Comments Basophils # (test code 0.1 See_Comment [Aut omated message] The = Basophils #) system which generated this result tra nsmitted reference range : <=0.2. The reference r mesha was not used to int erpret this result as normal/abnormal . [facility] CenterKhewnbqJYVUACDFFF6934-53-04 16:44:00 Test Item Value Reference Range Interpretation Comments Cardiolipin IgA (test code = 1.5 Cardiolipin IgA) [facility] CenterOkjsiuxFTXPNVAUVO9648-77-97 16:44:00 Test Item Value Reference Range Interpretation Comments Cardiolipin IgG (test code = no gt Cardiolipin IgG) [facility] CenterAaqdsvsCCUWQMSUWT1103-77-95 16:44:00 Test Item Value Reference Range Interpretation Comments Cardiolipin IgM (test code = 6.6 Cardiolipin IgM) [place] 797010-03-09 16:44:00 Test Item Value Reference Range Interpretation Comments Homocyst Tot (test code = Homocyst Tot) 39.8 3.7-13.9 [place] [address]-03-09 16:44:00 Test Item Value Reference Range Interpretation Comments [place] Free [place] Chains (test code = 157.34 3.30-19.40 [place] Free [place] Chains) [facility] CenterXchldpwGNDBOIRNZS6521-02-61 16:44:00 Test Item Value Reference Range Interpretation Comments Lambda Free Light Chains (test code = 121.80 5.70-26.30 Lambda Free Light Chains) [facility] CenterVswlgtyZPFXVGXTCF6870-61-02 16:44:00 Test Item Value Reference Range Interpretation Comments [place]/Lambda Free Light Chains Ratio 1.29 0.26-1.65 (test code = [place]/Lambda Free Light Chains Ratio) [facility] CenterEihclnhIDRERMZRAX8724-89-66 16:44:00 Test Item Value Reference Range Interpretation Comments MARITZA (test code = MARITZA) Negative (10/08/19 11:44 AM) [place] [address]-03-09 16:44:00 Test Item Value Reference Range Interpretation Comments CMV IgG (test code = Reactive *ABN*(10/08/19 CMV IgG) 11:44 AM) [place] 797010-03-09 16:44:00 Test Item Value Reference Range Interpretation Comments EBV VCA IgG (test code = EBV VCA IgG) no gt [facility] CenterBqoplquPOBDCXPGVL2710-29-69 16:44:00 Test Item Value Reference Range Interpretation Comments HIV Ag/Ab 4th Gen Negative *NA*(10/08/19 (test code = HIV 11:44 AM) Ag/Ab 4th Gen) [facility] CenterBstujfxDYIJFQVDKY8138-48-13 16:44:00 Test Item Value Reference Range Interpretation Comments Hep A Tot (test code Positive *NA*(10/08/19 = Hep A Tot) 11:44 AM) [facility] CenterDqicltvADHYICYUFL1083-40-99 16:44:00 Test Item Value Reference Range Interpretation Comments Hep Bs Ab (test code = Hep Bs Ab) no gt [facility] HospitalPhrtvvbJAXLNJZKKF9832-27-08 16:44:00 Test Item Value Reference Range Interpretation Comments Hep B Core Ab (test Negative *NA*(10/08/19 code = Hep B Core Ab) 11:44 AM) [facility] CenterYnsvbpqCMPJHKFBYP7109-13-30 16:44:00 Test Item Value Reference Range Interpretation Comments Hep Bs Ag (test code Negative *NA*(10/08/19 = Hep Bs Ag) 11:44 AM) [facility] CenterQvdqxgbTAWJZGSBRG5049-88-75 16:44:00 Test Item Value Reference Range Interpretation Comments Hep C Ab (test code = Negative *NA*(10/08/19 Hep C Ab) 11:44 AM) [facility] CenterDwkrirpNDUNOSXBTR7184-00-77 16:44:00 Test Item Value Reference Range Interpretation Comments HSV 2 IgG (test code = HSV 2 IgG) no gt [facility] HospitalWlbxlvmFGCTQHMMMM4893-92-01 16:44:00 Test Item Value Reference Range Interpretation Comments HSV 1 IgG (test code = HSV 1 IgG) no gt [facility] CenterXulhzdiSPTMJLKKUX0946-70-57 16:44:00 Test Item Value Reference Range Interpretation Comments T-Spot.TB (test code Negative (10/08/19 11:44 = T-Spot.TB) AM) [facility] CenterVivxdowBRKRSAZVRG8657-37-78 16:44:00 Test Item Value Reference Range Interpretation Comments Treponemal Ab (test code Non-Reactive = Treponemal Ab) *NA*(10/08/19 11:44 AM) [facility] CenterMoxoayhWQMHOCAILD0823-87-64 16:44:00 Test Item Value Reference Range Interpretation Comments Varicella IgG (test code = Varicella 7.8 IgG) [facility] HospitalInsvjstANSRUOBAAN3818-85-16 16:44:00 Test Item Value Reference Range Interpretation Comments Mumps IgG (test code = Mumps IgG) 4.9 [facility] HospitalDwzhmtmLVCDHCNIVV5618-20-33 16:44:00 Test Item Value Reference Range Interpretation Comments Rubella IgG (test code = Rubella IgG) 55.2 [facility] HospitalXxlokhaQQFLRFQBBW6133-19-16 16:44:00 Test Item Value Reference Range Interpretation Comments Rubeola IgG (test code = Rubeola IgG) 7.8 [facility] HospitalJfajvggMJFSVY5027-78-04 16:44:00 Test Item Value Reference Range Interpretation Comments Trig (test code = Trig) 91 [facility] HospitalCqrdkjtYQIHNQ9941-37-16 16:44:00 Test Item Value Reference Range Interpretation Comments Chol (test code = Chol) 141 [facility] HospitalGbzrnrxKZKYPR5745-21-45 16:44:00 Test Item Value Reference Range Interpretation Comments HDL (test code = HDL) 38 [facility] HospitalOdbfdibBGEQSU7736-21-41 16:44:00 Test Item Value Reference Range Interpretation Comments CHD Risk (test code = CHD Risk) 3.71 1 4.00-7.30 [facility] HospitalNmjmavrIFKYEN1245-06-89 16:44:00 Test Item Value Reference Range Interpretation Comments LDL (Calculated) (test code = LDL 85 (Calculated)) [facility] HospitalKhczurhMDFLEO0769-04-58 16:44:00 Test Item Value Reference Range Interpretation Comments VLDL (test code = VLDL) 18 1 [facility] HospitalannPARASITOLOGY - XQRWTIFC1586-65-55 16:44:00 Test Item Value Reference Range Interpretation Comments Strongyloides Antibodies (test code Negative = Strongyloides Antibodies) [facility] HospitalannPARATHYROID JZKIEGM9303-75-65 16:44:00 Test Item Value Reference Range Interpretation Comments PTH Intact (test code = PTH Intact) 660.1 18.4-80.1 [facility] HospitalannSPECIAL PCGINPXUM0278-73-39 16:44:00 Test Item Value Reference Range Interpretation Comments Nicotine Lvl (test code = Nicotine Lvl) no gt [facility]annSPECIAL DXNOBADWP5110-70-09 16:44:00 Test Item Value Reference Range Interpretation Comments Cotinine Lvl (test code = Cotinine Lvl) no gt [facility]annSPECIAL JNEZTDACN8334-14-56 16:44:00 Test Item Value Reference Range Interpretation Comments Hgb A1C (test code = Hgb A1C) 8.7 [facility]annSPE[facility] WEMAGFZXR3014-80-86 16:44:00 Test Item Value Reference Range Interpretation Comments PSA (test code = PSA) 0.46 See_Comment [Auto mated message] The system which ge nerated this result transmit abel reference range : <=4.00. The reference r mesha was not used to interpr et this result as justin l/abnormal. [facility]2020-03-09 16:44:00 Test Item Value Reference Range Interpretation Comments T cruzi (Chagas) Ab (test code = Non Reactive T cruzi (Chagas) Ab) [facility]2020-03-09 16:44:00 Test Item Value Reference Range Interpretation Comments W Nile Ab IgG (test code = W Nile Ab Positive IgG) [facility]2020-03-09 16:44:00 Test Item Value Reference Range Interpretation Comments W Nile Ab IgM (test code = W Nile Ab Negative IgM) [facility] [id number] 17:23:00 Test Item Value Reference Range Interpretation Comments Test Name (test code = Test Name) PRA RESULTS [facility] [id number] 16:59:00 Test Item Value Reference Range Interpretation Comments Test Name (test code = Test Name) PRA RESULTS [facility] [id number] 17:14:00 Test Item Value Reference Range Interpretation Comments Iron (test code = Iron) 47 45-160 [facility] [id number] 17:14:00 Test Item Value Reference Range Interpretation Comments TIBC (test code = TIBC) 257 228-428 [facility]2019-04-15 17:14:00 Test Item Value Reference Range Interpretation Comments UIBC (test code = UIBC) 210 110-370 [facility]2019-04-15 17:14:00 Test Item Value Reference Range Interpretation Comments % Satur Fe (test code = % Satur Fe) 18 12-57 [facility]2019-04-15 17:14:00 Test Item Value Reference Range Interpretation Comments Ferritin Lvl (test code = Ferritin Lvl) 358 22-763 [facility]2019-04-15 17:14:00 Test Item Value Reference Range Interpretation Comments Magnesium Lvl (test code = Magnesium 2.1 1.8-2.4 Lvl) [facility]2019-04-15 17:14:00 Test Item Value Reference Range Interpretation Comments Phosphorus (test code = Phosphorus) 5.0 2.5-4.5 [facility]annCHEM [id number] 17:14:00 Test Item Value Reference Range Interpretation Comments Vitamin D, 25-OH, Total (test code = 18.1 30.0-100.0 Vitamin D, 25-OH, Total) [facility] HospitalHip[facility] [id number] 17:14:00 Test Item Value Reference Range Interpretation Comments Uric Acid (test code = Uric Acid) 10.6 3.8-8.0 [facility]DR[facility] [id number] 17:14:00 Test Item Value Reference Range Interpretation Comments Methadone Scr (test code = Methadone Negative Scr) [facility]DR[facility] [id number] 17:14:00 Test Item Value Reference Range Interpretation Comments 6-Acetylmor Scr (test code = Negative 6-Acetylmor Scr) [facility] HospitalMarfeel [id number] 17:14:00 Test Item Value Reference Range Interpretation Comments Opiate Scr (test code = Opiate Scr) Negative [facility] HospitalDR[facility] [id number] 17:14:00 Test Item Value Reference Range Interpretation Comments Cocaine Scr (test code = Cocaine Negative Scr) [facility] [id number] 17:14:00 Test Item Value Reference Range Interpretation Comments Benzodiaz Scr (test code = Benzodiaz Negative Scr) [facility]DR[facility] [id number] 17:14:00 Test Item Value Reference Range Interpretation Comments Amph Scr (test code = Amph Scr) Negative [facility]DR[facility] [id number] 17:14:00 Test Item Value Reference Range Interpretation Comments Phencyclidine Scr (test code = Negative Phencyclidine Scr) [facility]annDR[facility] [id number] 17:14:00 Test Item Value Reference Range Interpretation Comments Cannab Scr (test code = Cannab Scr) Negative [facility] HospitalannDR[facility] [id number] 17:14:00 Test Item Value Reference Range Interpretation Comments Aixa Scr (test code = Aixa Scr) Negative [facility]WtcwwhwZRXENPFQDDZB0070-27-90 17:14:00 Test Item Value Reference Range Interpretation Comments AGAP (test code = AGAP) 11.4 10.0-20.0 [facility]vineAlvgypeLLVIGPSZXGJH7355-42-08 17:14:00 Test Item Value Reference Range Interpretation Comments Globulin (test code = Globulin) 2.9 2.7-4.2 [facility] SystemIlqttgzUIDZKWXFSHZS7739-32-41 17:14:00 Test Item Value Reference Range Interpretation Comments B/C Ratio (test code = B/C Ratio) 16 1 6-25 [facility] SystemCrqhamsFVUBFBEVTJMS0541-84-74 17:14:00 Test Item Value Reference Range Interpretation Comments A/G Ratio (test code = A/G Ratio) 1.3 1 0.7-1.6 [facility] SystemVcsehnrETJSQJAILXQE2497-90-73 17:14:00 Test Item Value Reference Range Interpretation Comments eGFR (test code = eGFR) 15 [facility] SystemSmftgiaWHWDMQDYIYPW3318-49-58 17:14:00 Test Item Value Reference Range Interpretation Comments Alk Phos (test code = Alk Phos) 105 39-136 [facility] SystemSanfhfpVJFQTKMEUUDV3875-90-06 17:14:00 Test Item Value Reference Range Interpretation Comments Bili Total (test code = Bili Total) 0.4 0.2-1.3 [facility] SystemDchnqlkATQDZDKOQWPW1699-98-03 17:14:00 Test Item Value Reference Range Interpretation Comments ALT (test code = ALT) 22 See_Comment [Auto mated message] The system which ge nerated this result transmit abel reference range : <=65. The reference range was not used to interpr et this result as justin l/abnormal. [facility] SystemFzxlnzyOGBMLKATOOAC7232-29-08 17:14:00 Test Item Value Reference Range Interpretation Comments Albumin Lvl (test code = Albumin Lvl) 3.7 3.5-5.0 [facility] SystemRyxmfmjGGDHZVNNNZXK6179-70-27 17:14:00 Test Item Value Reference Range Interpretation Comments AST (test code = AST) 21 See_Comment [Auto mated message] The system which ge nerated this result transmit abel reference range : <=37. The reference range was not used to interpr et this result as justin l/abnormal. [facility] SystemEhchziiSSHPVJLGBHYW7819-25-36 17:14:00 Test Item Value Reference Range Interpretation Comments Sodium Lvl (test code = Sodium Lvl) 141 135-145 [facility] SystemTfcrsnmGVLDRFBZGOTP9865-73-70 17:14:00 Test Item Value Reference Range Interpretation Comments Potassium Lvl (test code = Potassium 4.4 3.5-5.1 Lvl) [facility] SystemFzzhsmdTENKBJMZFHWV6474-47-16 17:14:00 Test Item Value Reference Range Interpretation Comments Chloride Lvl (test code = Chloride Lvl) 107 95-109 [facility] SystemMesyufjSKEUGCJEFXHM5807-41-64 17:14:00 Test Item Value Reference Range Interpretation Comments CO2 (test code = CO2) 27 24-32 [facility] SystemJnmirmnDVSXLZWFCMAR9286-48-15 17:14:00 Test Item Value Reference Range Interpretation Comments Calcium Lvl (test code = Calcium Lvl) 7.6 8.5-10.5 [facility] SystemNyxplujYLNIGVRVLJWF9308-70-19 17:14:00 Test Item Value Reference Range Interpretation Comments BUN (test code = BUN) 65 7-22 [facility] SystemDyufxupHZJRPATOGUTC8886-21-94 17:14:00 Test Item Value Reference Range Interpretation Comments Creatinine Lvl (test code = Creatinine 4.16 0.50-1.40 Lvl) [facility] SystemCmjehimTSDWSKXYLHVC9269-48-64 17:14:00 Test Item Value Reference Range Interpretation Comments Total Protein (test code = Total 6.6 6.4-8.4 Protein) [facility] SystemKlpzaiwXKQRARVADHJY8850-04-18 17:14:00 Test Item Value Reference Range Interpretation Comments Glucose Lvl (test code = Glucose Lvl) 63 70-99 [facility] HospitalGfujfbvJSGSMHZVZW7671-54-83 17:14:00 Test Item Value Reference Range Interpretation Comments Monocytes (test code = Monocytes) 6.6 2.0-12.0 [facility] HospitalNcunsstFBDFGCXAMT8858-49-68 17:14:00 Test Item Value Reference Range Interpretation Comments Eosinophils (test code = 2.8 See_Comment [A utomated message] The Eosinophils) system which ge nerated this result tra nsmitted reference range : <=4.0. The reference r mesha was not used to int erpret this result as normal/abnormal . [facility] HospitalUxeygmxLHFEHYNJRX8659-43-14 17:14:00 Test Item Value Reference Range Interpretation Comments Eosinophils # (test code 0.1 See_Comment [A utomated message] The = Eosinophils #) system whic h generated this result tra nsmitted reference range : <=0.5. The reference r mesha was not used to int erpret this result as normal/abnormal . [facility] HospitalVizfpxwOMAHRXBLAJ3275-65-24 17:14:00 Test Item Value Reference Range Interpretation Comments Basophils # (test code 0.1 See_Comment [Aut omated message] The = Basophils #) system which generated this result tra nsmitted reference range : <=0.2. The reference r mesha was not used to int erpret this result as normal/abnormal . [facility] HospitalAjitxfnSRNYRPTPTK7037-86-10 17:14:00 Test Item Value Reference Range Interpretation Comments Monocytes # (test code 0.3 See_Comment [Aut omated message] The = Monocytes #) system which generated this result tra nsmitted reference range : <=0.8. The reference r mesha was not used to int erpret this result as normal/abnormal . [facility] HospitalUgsjcyoKSOBZGPZGJ2498-67-90 17:14:00 Test Item Value Reference Range Interpretation Comments Lymphocytes (test code = Lymphocytes) 23.8 20.0-40.0 [facility] HospitalLcxauglQWNURLGJCF2603-43-30 17:14:00 Test Item Value Reference Range Interpretation Comments Basophils (test code = 1.0 See_Comment [Aut omated message] The Basophils) system which ge nerated this result tra nsmitted reference range : <=1.0. The reference r mesha was not used to int erpret this result as normal/abnormal . [facility] HospitalGiorqcgIZOPZAAHYR1335-04-87 17:14:00 Test Item Value Reference Range Interpretation Comments Neutrophils # (test code = Neutrophils 3.3 1.5-8.1 #) [facility] HospitalRuhbxtyGRIUROIJQJ5941-16-58 17:14:00 Test Item Value Reference Range Interpretation Comments Lymphocytes # (test code = Lymphocytes 1.2 1.0-5.5 #) [facility] HospitalThkwpseTOXDUUOIVZ0039-53-24 17:14:00 Test Item Value Reference Range Interpretation Comments Segs (test code = Segs) 65.8 45.0-75.0 [facility] HospitalFyaozpwSHEIVVTMMR9636-15-99 17:14:00 Test Item Value Reference Range Interpretation Comments PTT (test code = PTT) 32.5 s 22.9-35.8 [facility] HospitalSlhdbzyASSTTUSCJF1997-09-15 17:14:00 Test Item Value Reference Range Interpretation Comments PT (test code = PT) 13.4 s 12.0-14.7 [facility] HospitalVffeqdxPLTZEWFUZR0419-52-01 17:14:00 Test Item Value Reference Range Interpretation Comments INR (test code = INR) 1.04 1 0.85-1.17 [facility] HospitalDmjelrpHCCUWTHYEK1852-39-37 17:14:00 Test Item Value Reference Range Interpretation Comments WBC (test code = WBC) 5.0 3.7-10.4 [facility] HospitalDzanzryXCCNEQETQP2677-17-82 17:14:00 Test Item Value Reference Range Interpretation Comments Hgb (test code = Hgb) 12.3 14.0-18.0 [facility] HospitalYeyeujySPMKEPCDMS2000-32-93 17:14:00 Test Item Value Reference Range Interpretation Comments MCV (test code = MCV) 87.0 80.0-94.0 [facility] HospitalMhixmnoQZWPVFVKMC6375-50-30 17:14:00 Test Item Value Reference Range Interpretation Comments RBC (test code = RBC) 4.16 4.70-6.10 [facility] HospitalAzvrlmoDGJGJQSUUD1082-76-14 17:14:00 Test Item Value Reference Range Interpretation Comments Hct (test code = Hct) 36.1 42.0-54.0 [facility] HospitalPrvlprhXQWTEJNXTA3726-31-38 17:14:00 Test Item Value Reference Range Interpretation Comments MPV (test code = MPV) 9.4 7.4-10.4 [facility] HospitalXsycawtHALIFNWNUF7279-14-76 17:14:00 Test Item Value Reference Range Interpretation Comments Platelet (test code = Platelet) 162 133-450 [facility] HospitalNmvysfiZEKRABHLNO1358-87-42 17:14:00 Test Item Value Reference Range Interpretation Comments MCH (test code = MCH) 29.5 pg 27.0-31.0 [facility] HospitalKrosuojSEITXPBYLS3481-62-74 17:14:00 Test Item Value Reference Range Interpretation Comments MCHC (test code = MCHC) 33.9 32.0-36.0 [facility] HospitalLyeltatXYLRVHEMSW7928-33-31 17:14:00 Test Item Value Reference Range Interpretation Comments RDW (test code = RDW) 14.1 11.5-14.5 [facility] CenterBktssuzLYSIFOSHIA4554-24-68 17:14:00 Test Item Value Reference Range Interpretation Comments Rubella IgG (test code = Rubella IgG) 60.9 [facility] CenterWtnvvwaWSLQAWIWNN4987-68-82 17:14:00 Test Item Value Reference Range Interpretation Comments Mumps IgG (test code = Mumps IgG) 4.2 [facility] CenterZpqgylvFSDAOMQKDP3345-33-27 17:14:00 Test Item Value Reference Range Interpretation Comments Rubeola IgG (test code = Rubeola IgG) 7.5 [facility] CenterGpwgifzZRVNNAYTPU3859-58-67 17:14:00 Test Item Value Reference Range Interpretation Comments Varicella IgM (test no gt See_Comment [Automa abel message] The code = Varicella IgM) system which generated this result tra nsmitted reference range : <=0.90. The reference r mesha was not used to int erpret this result as normal/abnormal . [facility] CenterLuseloiMZRSOHSHJD5656-46-10 17:14:00 Test Item Value Reference Range Interpretation Comments Varicella IgG (test code = Varicella 6.7 IgG) [facility] CenterBmipmvxEUCSEEZMEK0800-03-75 17:14:00 Test Item Value Reference Range Interpretation Comments HSV 1 IgG (test code = HSV 1 IgG) no gt [facility] CenterDlmzigiEWOFTGYPZP3433-56-19 17:14:00 Test Item Value Reference Range Interpretation Comments HSV 2 IgG (test code = HSV 2 IgG) no gt [facility] CenterAygeecvRKZTPGVABS6872-68-24 17:14:00 Test Item Value Reference Range Interpretation Comments CMV IgM (test code = CMV IgM) 0.2 [facility] CenterBnpnupwATLTSGIUVO2371-19-43 17:14:00 Test Item Value Reference Range Interpretation Comments HIV Ag/Ab 4th Gen Negative *NA*(11/13/18 (test code = HIV 12:14 PM) Ag/Ab 4th Gen) [facility] CenterRxcipldVESSJNWIOH2128-24-28 17:14:00 Test Item Value Reference Range Interpretation Comments Hep Bs Ab (test code = Hep Bs Ab) 18.3 [facility] CenterFordcwgPIENNWHWBP2705-65-53 17:14:00 Test Item Value Reference Range Interpretation Comments Hep B Core Ab (test Negative *NA*(11/13/18 code = Hep B Core Ab) 12:14 PM) [facility] CenterFmtzghwOSYUWODASB6358-04-99 17:14:00 Test Item Value Reference Range Interpretation Comments Hep C Ab (test code = Negative *NA*(11/13/18 Hep C Ab) 12:14 PM) [facility] CenterJyzjuhjPCFJMHONWV7459-73-96 17:14:00 Test Item Value Reference Range Interpretation Comments Hep Bs Ag (test code Negative *NA*(11/13/18 = Hep Bs Ag) 12:14 PM) [facility] HospitalJzgcqmfZUHBQCIGVV8704-64-83 17:14:00 Test Item Value Reference Range Interpretation Comments [place]/Lambda Free Light Chains Ratio 2.05 0.26-1.65 (test code = [place]/Lambda Free Light Chains Ratio) [facility] HospitalFctqbkuNWJITFIMQW8250-30-09 17:14:00 Test Item Value Reference Range Interpretation Comments [place] Free [place] Chains (test code = 142.97 3.30-19.40 [place] Free [place] Chains) [facility] HospitalUsigswsWERTPZQQOX9005-23-34 17:14:00 Test Item Value Reference Range Interpretation Comments Lambda Free Light Chains (test code = 69.67 5.70-26.30 Lambda Free Light Chains) [facility] HospitalLxremxfYFNSOOQRGQ4732-38-13 17:14:00 Test Item Value Reference Range Interpretation Comments T-Spot.TB (test code Negative (11/13/18 12:14 = T-Spot.TB) PM) [facility] HospitalDujmuhcZOZTOPROHS4542-05-67 17:14:00 Test Item Value Reference Range Interpretation Comments Tot Prot (SPE) (test code = Tot Prot 6.6 6.4-8.4 (SPE)) [facility] HospitalRdvhkysWIYDDAVRPY8620-80-97 17:14:00 Test Item Value Reference Range Interpretation Comments SPE Interp (test Total protein level is code = SPE Interp) within the reference range. Capillary electrophoresis does not demonstrate any feature consistent with the presence of a monoclonal gammopathy. Serum protein electrophoresis shows normal distribution of the main protein fractions with no pathologic changes. The electronic medical record has been reviewed for relevant history. I have personally reviewed the test results and concur with the resident's interpretation. CPT 52851-BN [facility] HospitalWteyqzgZYOFYGDLAE8074-48-08 17:14:00 Test Item Value Reference Range Interpretation Comments Alpha 2 Glob (test code = Alpha 2 Glob) 0.80 0.45-1.00 [facility] HospitalSxixiohKBEDAWITJZ5735-25-32 17:14:00 Test Item Value Reference Range Interpretation Comments Beta Glob (test code = Beta Glob) 0.82 0.50-1.15 [facility] HospitalIrrsujeEOEOXXOEGD3587-67-00 17:14:00 Test Item Value Reference Range Interpretation Comments Gamma Glob (test code = Gamma Glob) 0.94 0.71-1.57 [facility] HospitalJudlclqEWPCXBRXQL3237-43-46 17:14:00 Test Item Value Reference Range Interpretation Comments Albumin (SPE) (test code = Albumin 3.73 3.57-5.55 (SPE)) [facility] CenterNkcwftwZEGKUOVCLB8437-95-80 17:14:00 Test Item Value Reference Range Interpretation Comments Alpha 1 Glob (test code = Alpha 1 Glob) 0.31 0.18-0.41 [facility] CenterRylohpgIPHGNWTMAZ2519-09-52 17:14:00 Test Item Value Reference Range Interpretation Comments Albumin % (test code = Albumin %) 56.5 55.8-66.1 [facility] CenterBbmdvtcPHOJNNSUTU8970-70-67 17:14:00 Test Item Value Reference Range Interpretation Comments Beta % (test code = Beta %) 12.4 7.8-13.7 [facility] CenterYjfswhvPESVVQSKKA0007-02-28 17:14:00 Test Item Value Reference Range Interpretation Comments Alpha 1 % (test code = Alpha 1 %) 4.7 2.8-4.9 [facility] CenterJfzccnuUSJWRGITVJ5543-92-60 17:14:00 Test Item Value Reference Range Interpretation Comments Gamma % (test code = Gamma %) 14.3 11.1-18.7 [facility] CenterXnrkajcKDSWZZQOIQ3075-79-36 17:14:00 Test Item Value Reference Range Interpretation Comments Alpha 2 % (test code = Alpha 2 %) 12.1 7.0-11.9 [facility] CenterTmbjwjxZTWVDNTJET1099-64-46 17:14:00 Test Item Value Reference Range Interpretation Comments EBV VCA IgG (test code = EBV VCA IgG) no gt [facility] CenterToyhpmeSTKBSVALIC2359-44-61 17:14:00 Test Item Value Reference Range Interpretation Comments Treponemal Ab (test code Non-Reactive = Treponemal Ab) *NA*(11/13/18 12:14 PM) [facility] CenterNujjytnQSFPNZRSBY9485-16-93 17:14:00 Test Item Value Reference Range Interpretation Comments EBV VCA IgM (test code = EBV VCA IgM) no gt [facility] CenterKgpvlsqHCNOEJQJDN0332-08-97 17:14:00 Test Item Value Reference Range Interpretation Comments CMV IgG (test code = Reactive *ABN*(11/13/18 CMV IgG) 12:14 PM) [facility] CenterCszquovRCUQOLMTWK2978-17-40 17:14:00 Test Item Value Reference Range Interpretation Comments MOLLY Ser Interp The serum immunofixation (test code = MOLLY electrophoresis Ser Interp) demonstrates polyclonal distribution of immunoglobulins. No monoclonal immunoglobulins are detected. The electronic medical record has been reviewed for relevant medical information. I have personally reviewed the test results and concur with the resident's interpretation. CPT 19788-BC [facility] HospitalFokfdykVDTYNITBWP1256-43-36 17:14:00 Test Item Value Reference Range Interpretation Comments MOLLY Ser Pattern Diffusely staining (test code = MOLLY immunoreactivity is present Ser Pattern) in the IgG, IgA, IgM, kappa, and lambda lanes in a normal polyclonal distribution. No monoclonal bands are detected. [facility] HospitalBzlhkkmOMEVGP1500-37-94 17:14:00 Test Item Value Reference Range Interpretation Comments CHD Risk (test code = CHD Risk) 3.04 1 4.00-7.30 [facility] HospitalPjsvvmeVCNGEW3459-83-22 17:14:00 Test Item Value Reference Range Interpretation Comments VLDL (test code = VLDL) 25 1 [facility] HospitalLwgivgkAIHLLZ0433-89-36 17:14:00 Test Item Value Reference Range Interpretation Comments LDL (Calculated) (test code = LDL 67 (Calculated)) [facility] HospitalTwlomfiUMLCYU9243-14-28 17:14:00 Test Item Value Reference Range Interpretation Comments Trig (test code = Trig) 124 [facility] HospitalJpwiccuIZXSEN7781-98-22 17:14:00 Test Item Value Reference Range Interpretation Comments Chol (test code = Chol) 137 [facility] HospitalRvltshrDEZVYM2976-10-47 17:14:00 Test Item Value Reference Range Interpretation Comments HDL (test code = HDL) 45 [facility] HospitalannPARASITOLOGY - DUUYNAMD8796-06-20 17:14:00 Test Item Value Reference Range Interpretation Comments Strongyloides Antibodies (test code Negative = Strongyloides Antibodies) [facility] HospitalannPARATHYROID JXILHZF8681-55-91 17:14:00 Test Item Value Reference Range Interpretation Comments PTH Intact (test code = PTH Intact) 534.6 18.4-80.1 [facility] HospitalSPECIAL ESXEDBWCP6034-95-98 17:14:00 Test Item Value Reference Range Interpretation Comments PSA (test code = PSA) 0.42 See_Comment [Auto mated message] The system which ge nerated this result transmit abel reference range : <=4.00. The reference r mesha was not used to interpr et this result as justin l/abnormal. [facility] MHBZIEMYE0692-86-47 17:14:00 Test Item Value Reference Range Interpretation Comments Hgb A1C (test code = Hgb A1C) 7.1 [facility] CUAYPDY3382-10-73 19:35:00 Test Item Value Reference Range Interpretation Comments Test Name (test code = Test Name) PRA RESULTS [facility] HDHFUJV9593-15-08 19:26:00 Test Item Value Reference Range Interpretation Comments Test Name (test code = Test Name) PRA RESULTS [facility] WERQOCB5955-49-45 19:53:00 Test Item Value Reference Range Interpretation Comments Test Name (test code = Test Name) PRA RESULTS [facility] ETRWPEX5383-06-37 18:56:00 Test Item Value Reference Range Interpretation Comments Test Name (test code = Test Name) PRA RESULTS [facility] HospitalPblzuudFMAEBTGKFV4847-51-38 15:59:00 Test Item Value Reference Range Interpretation Comments POC Hemoglobin (test code = POC 12.2 14.0-18.0 Hemoglobin) [facility]ThudvuyRBPGROKPTL6473-76-78 15:59:00 Test Item Value Reference Range Interpretation Comments POC Hematocrit (test code = POC 36.0 42.0-54.0 Hematocrit) [facility] HospitalWzeqoejDXWWBGVTKN8282-57-04 15:59:00 Test Item Value Reference Range Interpretation Comments POC Sodium (test code = POC Sodium) 141 135-145 [facility] HospitalUihilblXGCQCXNSQK3120-78-08 15:59:00 Test Item Value Reference Range Interpretation Comments POC Glucose (test code = POC Glucose) 128 70-99 [facility] HospitalUndefesXMORDDUTRM6411-54-09 15:59:00 Test Item Value Reference Range Interpretation Comments POC Potassium (test code = POC 3.3 3.5-5.1 Potassium) [facility] MDDCHSV0319-80-43 15:00:00 Test Item Value Reference Range Interpretation Comments ABO/RH Confirm (test code = ABO/RH O POS Confirm) [facility] HTIEMOI7585-42-53 14:45:00 Test Item Value Reference Range Interpretation Comments OP ABORh Int (test code = OP ABORh Int) O POS [facility] CGMAHZO7065-24-19 19:35:00 Test Item Value Reference Range Interpretation Comments Test Name (test code = HLA TYPING RESULTS Test Name) Malachi Mason
[2022-08-07 20:46] LABS: Urine Blood Negative (Negative); Urine Glucose Negative (Negative); Urine Protein 2+ (Negative)
[2022-08-07 20:50] LABS: Hematocrit 29.5 % (39.6-49.0); Lymphocytes % 11.4 % (15.3-44.8); MCV 92.5 fL (80-100); MPV 8.1 fL (7.6-11.3); RBC Red Blood Cell Count 3.19 M/uL (4.33-5.43)
[2022-08-07 20:57] LABS: Urine Bacteria <20 /HPF (<20); Urine Mucus Slight /HPF (None Seen)
[2022-08-07 21:06] LABS: Potassium 4.6 mmol/L (3.5-5.1)
--- NOTE | 2022-08-07 21:31 | RAD REPORT ---
EXAM DESCRIPTION: US - Extremity Venous Uni Ltd - 08/07/2022 9:24 pm CLINICAL HISTORY: Right calf pain COMPARISON: None. TECHNIQUE: Real-time sonographic evaluation of the right lower extremity deep venous system was perf ormed. FINDINGS: Thrombus is present within the right common femoral vein and distal femoral vein. This is confirmed with color and grayscale. The remaining veins are compressible and without clot. IMPRESSION: Positive for DVT involving the distal right femoral vein as well as the common femoral v ein.
[2022-08-07] MEDS ORDERED: APIXABAN 5 MG TABLET ONE (21:54)
--- NOTE | 2022-08-07 22:16 | EDPHYS ---
Physician Documentation [facility] Name: Julian Morillo Age: 62 yrs Sex: Male : 1960 Arrival Date: 08/07/2022 Time: 19:39 Bed 19 Private MD: ED Physician Maude Ivy HPI: 08/08 00:30 This 62 yrs old Male presents to ER via Wheelchair with complaints of Penile kb Pain, Lumps on Leg. 00:30 The patient presents with pain, swelling. The complaints affect the lateral aspect of kb right calf. Context: The problem was sustained at home, resulted from an unknown cause. Onset: The symptoms/episode began/occurred 4 week(s) ago. Modifying factors: The symptoms are alleviated by nothing. the symptoms are aggravated by nothing. Associated signs and symptoms: Pertinent positives: calf tenderness, swelling. Treatment prior to arrival includes: no previous treatment. Severity of symptoms: At their worst the symptoms were mild, moderate, in the emergency department the symptoms are unchanged. The patient has not experienced similar symptoms in the past. The patient has not recently seen a physician. Patient reports redness, swelling, pain to right lower extremity that started approximately 4 weeks ago. Reports discoloration to tip of penis with dysuria that started 1 week ago.. Historical: - Allergies: 08/07 20:15 No Known Allergies; aa9 - Home Meds: 20:15 humulin [Active]; Hydrochlorothiazide Oral [Active]; aa9 - PMHx: 20:15 PERITONEAL DIALYSIS; Hypertension; Diabetes - IDDM; aa9 - PSHx: 20:15 Skin Graft on L leg; aa9 - Immunization history:: Client reports receiving the 2nd dose of the Covid vaccine. - Social history:: Smoking status: Patient denies any tobacco usage or history of. ROS: 08/08 00:28 Constitutional: Negative for fever, chills, and weight loss. kb : Positive for burning with urination, penile pain. MS/extremity: Positive for erythema, pain, swelling, of the right leg. All other systems are negative. Exam: 00:28 Constitutional: This is a well developed, well nourished patient who is awake, alert, kb and in no acute distress. Head/Face: Normocephalic, atraumatic. ENT: Moist Mucous membranes Cardiovascular: Regular rate and rhythm with a normal S1 and S2. No gallops, murmurs, or rubs. No pulse deficits. Respiratory: Respirations even and unlabored. No increased work of breathing. Talking in full sentences Abdomen/GI: Soft, non-tender. No distention Skin: Warm, dry with normal turgor. Normal color. Neuro: Awake and alert, GCS 15, oriented to person, place, time, and situation. Moves all extremities. Normal gait. Psych: Awake, alert, with orientation to person, place and time. Behavior, mood, and affect are within normal limits. 00:28 : Male external genitalia: White plaquing noted to head of penis with slight erythema around edges that is tender to palpation.. 00:28 Musculoskeletal/extremity: Extremities: grossly normal except: noted in the lateral aspect of right calf: erythema, pain, swelling, ROM: intact in all extremities, Circulation is intact in all extremities. Sensation intact. Vital Signs: 08/07 20:12 BP 116 / 62; Pulse 88; Resp 23 S; Temp 98.2; Pulse Ox 100% on R/A; Weight 123.38 kg; aa9 Height 6 ft. 0 in. (182.88 cm); Pain 7/10; 20:47 BP 106 / 69; Pulse 88; Resp 20; Pulse Ox 100% on R/A; Pain 6/10; mb9 21:45 BP 128 / 69; Pulse 84; Resp 18; Pulse Ox 100% on R/A; mb9 22:16 BP 125 / 71; Pulse 78; Resp 16; Pulse Ox 100% on R/A; mb9 20:12 Body Mass Index 36.89 (123.38 kg, 182.88 cm) aa9 MDM: 20:12 Patient medically screened. kb 08/08 00:21 Differential diagnosis: Cellulitis, DVT, UTI. Data reviewed: vital signs, nurses notes. kb Data interpreted: Pulse oximetry: on room air is 100 %. Interpretation: normal. Counseling: I had a detailed discussion with the patient and/or guardian regarding: the historical points, exam findings, and any diagnostic results supporting the discharge/admit diagnosis, lab results, radiology results, the need for outpatient follow up, a family practitioner, a urologist, to return to the emergency department if symptoms worsen or persist or if there are any questions or concerns that arise at home. ED course: Consideration of hospitalization: Hospitalization considered for DVT but after speaking to Dr. Torrez patient will follow-up outpatient. Management of the patient was discussed with the following: Dr. Torrez who wants patient started on Eliquis and to follow-up in the office next week. Dr. Willson was consulted for discoloration and plaquing to head of penis, recommends outpatient follow-up in his office. I considered the following discharge prescriptions or medication management in the emergency department: Antibiotics considered but patient is already been on Cipro and Augmentin that were previously prescribed. Diagnostic test considered but not performed: CT chest to rule out PE considered but patient has no shortness of breath, tachycardia, chest pain. History obtained from: Patient.. 08/07 20:14 Order name: Urine Microscopic Only; Complete Time: 21:26 kb 08/07 20:14 Order name: CBC with Diff; Complete Time: 20:53 kb 08/07 20:14 Order name: Basic Metabolic Panel; Complete Time: 21:26 kb 08/07 20:14 Order name: US Extremity Venous Unilateral Ltd; Complete Time: 21:33 kb 08/07 20:46 Order name: Urine Dipstick-Ancillary; Complete Time: 20:48 EDMS 08/07 21:02 Order name: Urine Culture EDMS 08/07 20:14 Order name: Urine Dipstick-Ancillary (obtain specimen); Complete Time: 20:45 kb 08/07 20:14 Order name: IV Start; Complete Time: 20:45 kb Administered Medications: 08/07 22:00 Drug: Eliquis (apixaban) 5 mg Route: PO; mb9 22:00 Follow up: Response: No adverse reaction mb9 Disposition Summary: 08/07/22 22:16 Discharge Ordered Location: Home kb Condition: Stable kb Diagnosis - Acute embolism and thrombosis of deep veins of lower extremity - right kb Followup: kb - With: Emergency Department - When: As needed - Reason: Worsening of condition Followup: kb - With: Private Physician - When: 2 - 3 days - Reason: Recheck today's complaints, Continuance of care, Re-evaluation by your physician Discharge Instructions: - Discharge Summary Sheet kb - Deep Vein Thrombosis kb Forms: - Medication Reconciliation Form kb - Thank You Letter kb - Antibiotic Education kb - Prescription Opioid Use kb Prescriptions: - Eliquis 2.5 mg Oral tablet - take 2 tablet by ORAL route 2 times per day for 7 days Take 2 tabs twice per kb day for 7 days, then one tab twice per day; 56 tablet; Refills: 0, Product Selection Permitted Signatures: Dispatcher [employer] Leanna Recio, Elise Andrew, RN RN aa9 Dianelys Harmon RN RN mb9
--- NOTE | 2022-08-07 22:16 | ER ---
Nurse's Notes [facility] Name: Julian Morillo Age: 62 yrs Sex: Male : 1960 Arrival Date: 08/07/2022 Time: 19:39 Bed 19 Private MD: Diagnosis: Acute embolism and thrombosis of deep veins of lower extremity-right Presentation: 08/07 20:12 Chief complaint: Patient states: I have lower right leg pain, burning pain when I pee aa9 and my penis is discolored like white around the head of the penis. Coronavirus screen: Vaccine status: Patient reports receiving the 2nd dose of the covid vaccine. Ebola Screen: No symptoms or risks identified at this time. Initial Sepsis Screen: Does the patient meet any 2 criteria? No. Patient's initial sepsis screen is negative. Does the patient have a suspected source of infection? No. Patient's initial sepsis screen is negative. Risk Assessment: Do you want to hurt yourself or someone else? Patient reports no desire to harm self or others. Onset of symptoms was August 07, 2022. 20:12 Method Of Arrival: Wheelchair aa9 20:12 Acuity: IZABEL 3 aa9 Triage Assessment: 20:15 General: Appears uncomfortable, obese, Behavior is calm, cooperative, appropriate for aa9 age. Pain: Complains of pain in pelvis and right leg Pain currently is 8 out of 10 on a pain scale. Quality of pain is described as burning. Neuro: Level of Consciousness is awake, alert, obeys commands, Oriented to person, place, time, situation. Cardiovascular: Patient's skin is warm and dry. Respiratory: Airway is patent Respiratory effort is even, unlabored. GI: No signs and/or symptoms were reported involving the gastrointestinal system. : Reports burning with urination. Derm: Historical: - Allergies: 20:15 No Known Allergies; aa9 - Home Meds: 20:15 humulin [Active]; Hydrochlorothiazide Oral [Active]; aa9 - PMHx: 20:15 PERITONEAL DIALYSIS; Hypertension; Diabetes - IDDM; aa9 - PSHx: 20:15 Skin Graft on L leg; aa9 - Immunization history:: Client reports receiving the 2nd dose of the Covid vaccine. - Social history:: Smoking status: Patient denies any tobacco usage or history of. Screenin:02 [facility] Fall Risk Assessment (Adult) History of falling in the last 3 months, mb9 including since admission No falls in past 3 months (0 pts) Confusion or Disorientation No (0 pts) Intoxicated or Sedated No (0 pts) Impaired Gait No (0 pts) Mobility Assist Device Used No (0 pt) Altered Elimination No (0 pt) Score/Fall Risk Level 0 - 2 = Low Risk Oriented to surroundings, Maintained a safe environment, Educated pt \T\ family on fall prevention, incl call for assistance when getting out of bed. Abuse screen: Denies threats or abuse. Nutritional screening: No deficits noted. Tuberculosis screening: No symptoms or risk factors identified. Assessment: 20:30 General: Appears in no apparent distress. comfortable, Behavior is calm, cooperative, mb9 appropriate for age. Pain: Complains of pain in right leg and pelvis Pain does not radiate. Pain currently is 6 out of 10 on a pain scale. Quality of pain is described as burning. Neuro: Cabrera Agitation-Sedation Scale (RASS): 0 - Alert and Calm Level of Consciousness is awake, alert, obeys commands, Oriented to person, place, time, situation, Appropriate for age. Cardiovascular: Heart tones S1 S2 present Rhythm is regular. Respiratory: Airway is patent Respiratory effort is even, unlabored, Respiratory pattern is regular, symmetrical, Breath sounds are clear bilaterally. GI: Abdomen is round non-distended, Bowel sounds present X 4 quads. Abd is soft and non tender X 4 quads. : Urine is clear, Reports burning with urination, pain in bilateral flank(s). EENT: No signs and/or symptoms were reported regarding the EENT system. Derm: redness and swelling noted to right lower leg. pt reports pain to palpation. 20:30 Musculoskeletal: Capillary refill < 3 seconds, in bilateral fingers. toes. Range of mb9 motion: intact in all extremities. 21:09 Reassessment: Ultrasound at bedside. mb9 22:01 Neuro: Level of Consciousness is awake, alert, obeys commands, Oriented to person, mb9 place, time, situation, Appropriate for age. Cardiovascular: Rhythm is regular. Respiratory: Airway is patent. : Swelling noted on penis Denies discharge. Derm:. Vital Signs: 20:12 BP 116 / 62; Pulse 88; Resp 23 S; Temp 98.2; Pulse Ox 100% on R/A; Weight 123.38 kg; aa9 Height 6 ft. 0 in. (182.88 cm); Pain 7/10; 20:47 BP 106 / 69; Pulse 88; Resp 20; Pulse Ox 100% on R/A; Pain 6/10; mb9 21:45 BP 128 / 69; Pulse 84; Resp 18; Pulse Ox 100% on R/A; mb9 22:16 BP 125 / 71; Pulse 78; Resp 16; Pulse Ox 100% on R/A; mb9 20:12 Body Mass Index 36.89 (123.38 kg, 182.88 cm) aa9 ED Course: 19:39 Patient arrived in ED. ja2 19:50 Le[facility] Alonzo [facility]C [facility] kb 19:50 Maude Ivy MD is Attending Physician. kb 20:15 Triage completed. aa9 20:16 Arm band placed on. aa9 20:27 Dianelys Harmon RN is Primary Nurse. mb9 20:35 Inserted saline lock: 20 gauge in right antecubital area, using aseptic technique. mb9 Blood collected. 20:45 Placed in gown. Bed in low position. Call light in reach. Side rails up X 1. Client mb9 placed on continuous cardiac and pulse oximetry monitoring. NIBP monitoring applied. 20:45 Urine Microscopic Only Sent. mb9 20:45 CBC with Diff Sent. mb9 20:45 Basic Metabolic Panel Sent. mb9 21:02 No provider procedures requiring assistance completed. mb9 21:09 Urine Culture Sent. mb9 21:26 US Extremity Venous Unilateral Ltd In Process Unspecified. EDMS 22:16 IV discontinued, intact, bleeding controlled, No redness/swelling at site. Pressure mb9 dressing applied. Administered Medications: 22:00 Drug: Eliquis (apixaban) 5 mg Route: PO; mb9 22:00 Follow up: Response: No adverse reaction mb9 Medication: 21:02 VIS not applicable for this client. mb9 Outcome: 22:16 Discharge ordered by . kb 22:31 Discharged to home via wheelchair. mb9 22:31 Condition: stable 22:31 Discharge instructions given to patient, family, Instructed on discharge instructions, follow up and referral plans. Demonstrated understanding of instructions, follow-up care, medications, Prescriptions given X 1. 22:31 Patient left the ED. mb9 Signatures: Dispatcher [employer] EDMS Leanna Alonzo, SOCIAL SERVICES AIDE-C SOCIAL SERVICES AIDE-Amy Diop Aylin, RN RN aa9 Dianelys Harmon RN RN mb9 Corrections: (The following items were deleted from the chart) 21:46 20:30 Derm: redness and swelling noted to right lower leg mb9 mb9
[2022-08-07 23:20] VITALS: TEMP 98.2; O2SAT 100
[2022-08-07 23:24] VITALS: BP 125/71
== END 2022-08-07 22:31 | disposition home or self-care (01) ==
LOC: ER 19:36
DX: I82.401 Acute embolism and thrombosis of unspecified deep veins of right lower extremity (principal); E11.9 Type 2 diabetes mellitus without complications; Z79.4 Long term (current) use of insulin; I10 Essential (primary) hypertension; Z99.2 Dependence on renal dialysis
CPT/HCPCS: 36415; 80048; 81003; 81015; 85025; 87086; 87088; 93971; 99284

== ENCOUNTER 2024-01-20 08:40 | Day surgery (SDC) | payer OTHER ==
[2024-01-19 14:37] LABS: Absolute Basophils 0.1 K/uL (0-0.5); Absolute Eosinophils 0.2 K/uL (0-0.5); Absolute Lymphocytes (CBC) 1.4 K/uL (0.7-4.9); Absolute Monocytes 0.8 K/uL (0.1-1.3); Absolute Neutrophil 8.1 K/uL (1.8-8.0); Basophils % 1.1 % (0-1.3); Eosinophils % 1.9 % (0-4.4); Hematocrit 46.2 % (39.6-49.0); Hemoglobin 15.3 g/dL (13.6-17.9); Lymphocytes % 13.4 % (15.3-44.8); MCH 31.9 pg (27.0-35.0); MCV 96.7 fL (80-100); MPV 8.8 fL (7.6-11.3); Monocytes % 7.3 % (3.3-12.3); Neutrophils % 76.3 % (41.7-73.7); Platelets 196 thou/uL (152-406); RBC Red Blood Cell Count 4.78 M/uL (4.33-5.43); Red Cell Distribution Width 15.4 % (12.1-15.2)
[2024-01-19 14:45] LABS: Anion Gap 11.7 mEq/L (5.0-15.0); Magnesium 2.8 mg/dL (1.6-2.4); Phosphorus 3.6 mg/dL (2.5-4.9); Potassium 4.7 mEq/L (3.5-5.1)
[2024-01-20] MEDS ORDERED: NA CHLORIDE 0.9% 1,000 ML ONE (08:59)
[2024-01-20] MEDS ORDERED: NA CHLORIDE 0.9% 50 ML ONE (09:45)
[2024-01-20 09:48] LABS: Anion Gap 10.7 mEq/L (5.0-15.0); Potassium 4.7 mEq/L (3.5-5.1)
[2024-01-20] MEDS ORDERED: LIDOCAINE 2% MPF 5 ML VIAL ONE (10:21)
[2024-01-20] MEDS ORDERED: FENTANYL CITR 100 MCG/2 ML ONE (10:21)
[2024-01-20] MEDS ORDERED: propofoL 200 MG/20 ML VIAL IV ONE (10:21)
[2024-01-20] MEDS ORDERED: ONDANSETRON 4 MG/2 ML VIAL ONE (10:21)
[2024-01-20] MEDS ORDERED: MIDAZOLAM HCL 2 MG/2 ML INJ ONE (10:22)
[2024-01-20] MEDS ORDERED: ROCURONIUM 50 MG/5 ML VIAL IV ONE ×2 (10:22→14:17)
[2024-01-20] MEDS: CEFAZOLIN SODIUM 2 GM/VIAL ONE (12:14)
[2024-01-20] MEDS ORDERED: NS 0.9% VIAL 30 ML ONE (12:22)
[2024-01-20] MEDS: LIDOCAINE HCL/EPINEPHRINE 20 ML MDV ONE (12:58)
[2024-01-20] MEDS: HEPARIN 5000 UNIT/ML 1 ML VIAL ONE (12:58)
--- NOTE | 2024-01-20 14:11 | RAD REPORT ---
EXAM DESCRIPTION: RAD - Fluoroscopy <1 Hour - 01/20/2024 2:05 pm CLINICAL HISTORY: DIALYSIS CATH PLACEMENT COMPARISON: No comparisons FINDINGS: Fluoroscopy time: 3.3 minutes
--- NOTE | 2024-01-20 14:59 | P.OP ---
Preoperative diagnosis: Peritoneal Dialysis Catheter Dysfunction Postoperative diagnosis: Peritoneal Dialysis Catheter Dysfunction Primary procedure: Laparoscopic removal of Peritoneal Dialysis Catheter Secondary procedure: Attempted placment of tunneled hemodialysis catheter Anesthesia: GETA + Local Estimated blood loss: <10cc Specimen: Catheter Findings: Obstruction @ SVC precluding catheter placement Complications: None Transferred to: Recovery Room Condition: Good
[2024-01-20] MEDS: HYDROMORPHONE HCL 1 MG/ML INJ ONE ×2 (15:07→15:27)
[2024-01-20] MEDS: ONDANSETRON 4 MG (ODT) TAB ONE (16:50)
[2024-01-20 17:30] VITALS: BP 146/74; TEMP 96.1; O2SAT 99
--- NOTE | 2024-01-20 23:25 | OP ---
Date of Procedure: 01/20/2024 Surgeon: Dwain Faulkner MD, Brief History Of Present Illness: The patient is a 64-year-old man, known to me with a history of wo rsening renal dysfunction, maintained on peritoneal dialysis; however, he is unable to achieve his di alysis needs with peritoneal dialysis alone and as such, it was opted that he should have initiation of hemodialysis. He refused to have a fistula placed and as such, presented to my office a while zacarias for placement of tunneled hemodialysis catheter and removal of peritoneal dialysis catheter. Alie quiles, yesterday morning, he came to my office as he had accidentally lacerated the catheter. As such, he came to me today for placement of a new hemodialysis catheter and removal of his peritoneal dialys is catheter, which was now fractured. Preoperative Diagnosis: Peritoneal dialysis catheter dysfunction/need for renal dialysis. Postoperative Diagnosis: Peritoneal dialysis catheter dysfunction/need for renal dialysis. Procedures Performed: 1.Laparoscopic removal of peritoneal dialysis catheter. 2.Attempted unsuccessful placement of tunneled hemodialysis catheter. Anesthesia: General endotracheal plus local with 0.25% Marcaine. Estimated Blood Loss: Less than 10 cc. Specimens: Catheter. Findings: 1.Obstruction at the SVC precluding safe catheter placement. 2.The patient had multiple cuffs, 5 in number, from his peritoneal dialysis catheter from the anteri or rectus sheath extending all the way subcutaneously to the skin surface. Complications: None. Disposition: The patient was transferred to recovery room in good condition. Procedure In Detail: After informed consent was obtained, the patient was brought to the operating r oom, prepped and draped in usual sterile fashion. After adequate anesthesia was achieved, I placed t he patient in steep Trendelenburg position. Using ultrasound guidance, I was able to cannulate the s ubclavian vein on the first attempt without incident or complication. At this point, a micro wire, 0 .014 wire was advanced abutting the SVC; however, the wire continued to go up into the jugular vein a nd I was unable to place it down using multiple maneuvers, including pulling of the patient's arm and positioning, repositioning the patient, turning the head, and multiple maneuvers were unsuccessful a t placing this wire. At this point, I abandoned the subclavian access point and using ultrasound margarito stormy, cannulated the right internal jugular vein. Similarly, I was able to place the catheter, dark red nonpulsatile blood was returned; however, I was unable to pass the wire beyond the confluence of the superior vena cava. Once again, there seemed to be some obstruction at this point of uncertain origin. I could not pass an 0.014 wire. I tried a standard wire as well and was unable to pass it d espite multiple attempts of repositioning the patient as well as pulling the patient's arm. Other ma neuvers were unsuccessful to direct the catheter into the appropriate position. Therefore, this was abandoned as well. I then turned my attention to the internal jugular vein on the left side. I erlin ulated the left internal jugular vein once again under ultrasound guidance without incident or compli cation. The catheter went down, crossed over, and once again ran into an obstruction near the conflu ence of the SVC and was unable to place the catheter to make appropriate turn down toward the SVC. T here seemed to be an obstructive process here at this point consistent with a stenosis, obstruction, web, or some other process precluding a safe placement of the catheter and as such, I determined that there was some issue with the superior vena cava at this point at the confluence and therefore precl uding a safe catheter placement, as such abandoned this procedure at this point. I therefore placed sterile dressings and closed the insertion site of the right subclavian, attempted using an interrupt ed 3-0 nylon suture and a sterile dressing was placed over top. I then turned my attention to the ab dominal portion, where the fractured catheter was evident. I then placed a single laparoscopic troca r in the left upper quadrant without incident or complication. Insufflation was obtained to 15 mmHg at this time. There was no injury to vital structures upon entry into the abdomen. Placed 1 additio nal trocar site on the right mid abdomen. This was used to suction out approximately 2 L of peritone al fluid at this point, and the catheter was examined and found to be in an appropriate anatomic posi tion without significant scarring at this point. I therefore kept the abdomen insufflated at this po int down to 10 mmHg and proceeded to cut down on all the catheter cuffs, which were 5 in number, with metal Interlinks, interchanged between these, extending several catheters with multiple cuffs. I th erefore removed all these cuffs and removed the catheter in multiple pieces in its entirety, and visu alized removal of the catheter from the abdominal compartment at this point. I then irrigated these areas, inspected the abdomen at this point with laparoscopy, and it was without injury or issue. I t hen desufflated the abdomen under direct visualization without incident or complication. The abdomen was completely desufflated. I then removed all trocars. All skin incisions were then copiously irr igated and closed with interrupted cristhian, and the exit site was packed with quarter-inch iodoform p acking with sterile dressing placed over top. The patient tolerated procedure without incident or co mplication, and transferred to PACU in good condition. All counts were correct at the end of the chuck e. I spoke with Dr. Fagan postoperatively about the patient's hemodialysis needs, and as his electrol ytes were not in a critical range, Dr. Fagan will recommend followup with a vascular surgeon as so on as possible. I have instructed the patient and his to coordinate with Dr. Fagan regarding ongoing care and timing of dialysis. If the patient requires emergent dialysis, I can place a tempo rary catheter in the patient's groin for temporary dialysis; however, the patient has displayed inter est in proceeding to another facility in [place] to continue ongoing care and establish care with a vascular surgeon for his problems as described above. TANESHA/ANJANA Voice ID: [id number] Report ID: [id number]
--- NOTE | 2024-01-23 13:11 | EKG ---
Test Date: 2024-01-19 Test Time: 14:13:10 Fire Observer: SHANNON MEASUREMENT RESULTS: Intervals: Rate: 91 MA: 162 QRSD: 74 QT: 358 QTc: 440 [place]: P: 43 MA: 162 QRS: -43 T: 53 INTERPRETIVE STATEMENTS: Normal sinus rhythm Left axis deviation Low voltage QRS Abnormal ECG No previous ECG available for comparison Electronically Signed On 01-23-24 13:04:22 CDT by Kiko Fonseca
== END 2024-01-20 17:10 | disposition home or self-care (01) ==
LOC: OR 08:40
PROVIDERS: ATTEND Surgery
PROC: 0WPG03Z Removal of Infusion Device from Peritoneal Cavity, Open Approach (ICD-10-PCS; principal; 2024-01-20 11:00)
PROC: 05HN33Z Insertion of Infusion Device into Left Internal Jugular Vein, Percutaneous Approach (ICD-10-PCS; 2024-01-20 11:00)
DX: T85.611A Breakdown (mechanical) of intraperitoneal dialysis catheter, initial encounter (principal); N18.6 End stage renal disease; Z45.2 Encounter for adjustment and management of vascular access device
CPT/HCPCS: 93005; 85025; 80048 ×2; 36415; 83735; 84100; 82947 ×2; 36589; 36558; Q0162; A4216; J2704; J2001; J2250; J3010; J1170 ×2; J2405; J7030; 76000; 88300; J1644